=== PATIENT | female | born 1950 | race Hispanic/Latino ===

== ENCOUNTER 2017-02-09 21:24 | Emergency (ER) | payer BC, MEDICARE ==
[2017-02-09 21:36] VITALS: BMI 16.8
--- NOTE | 2017-02-09 22:03 | ED PDOC ---
Arrival/HPI - General Historian: Patient - General Chief Complaint: Altered Mental Status Time Seen by Provider: 02/09/17 21:34 - History of Present Illness Narrative History of Present Illness (Text): 02/09/17 21:53 Pt is a 66 year old female with past medical history of graves disease who presents with complaints of a fall three days prior to arrival. Pt reports three days ago she fell three times. Pt reports getting up in the middle of the night and fell while walking down hallway in house after bumping into wall. She reports the reason she bumped into the wall was due to issues with her peripheral vision. She reports a second fall after she attempted to get back up on her feet. The patient reports a third fall in the short period after. She indicates hitting her head at least 2 times during this episode. She credits her falls to feelings of dizziness on her feet and difficulty with peripheral vision. She denies chest pain, shortnees of breath, focal weakness, changes in vision, neck stiffness, nausea and vomiting. She denies suicidal or homicidal ideation, hallucinations or overdose. (Rahul Larios) Past Medical History - Provider Review Nursing Documentation Reviewed: Yes - Infectious Disease Hx of Infectious Diseases: None - Tetanus Immunization Tetanus Immunization: Unknown - Cardiac Hx Cardiac Disorders: Yes Hx Hypertension: Yes - Pulmonary Hx Respiratory Disorders: No - Neurological Hx Neurological Disorder: No - HEENT Hx HEENT Disorder: No - Renal Hx Renal Disorder: No - Endocrine/Metabolic Hx Endocrine Disorders: Yes Hx Hyperthyroidism: Yes (Graves) - Hematological/Oncological Hx Blood Disorders: No - Integumentary Hx Dermatological Disorder: No - Musculoskeletal/Rheumatological Hx Musculoskeletal Disorders: Yes Hx Falls: Yes - Gastrointestinal Hx Gastrointestinal Disorders: No - Genitourinary/Gynecological Hx Genitourinary Disorders: No - Psychiatric Hx Psychophysiologic Disorder: Yes Hx Anxiety: Yes Hx Depression: Yes Hx Substance Use: No - Surgical History Hx Section: Yes - Anesthesia Hx Anesthesia: Yes Hx Anesthesia Reactions: No Hx Malignant Hyperthermia: No - Suicidal Assessment Feels Threatened In Home Enviroment: No Family/Social History - Physician Review Nursing Documentation Reviewed: Yes Family/Social History: No Known Family HX Smoking Status: Never Smoked Hx Alcohol Use: No Hx Substance Use: No Hx Substance Use Treatment: No Allergies/Home Meds Allergies/Adverse Reactions: Allergies No Known Allergies Allergy (Verified 02/09/17 21:40) Home Medications: Home Meds Medication Instructions Recorded Confirmed Alprazolam [Xanax] 2 mg PO PRN PRN 12/26/12 02/09/17 Estrogen,Con/M-Progest Acet 1 tab PO DAILY 09/09/16 02/09/17 [Prempro 0.3 mg-1.5 mg Tablet] Multivit with Minerals/Lutein 1 tab PO DAILY 09/09/16 02/09/17 [[employer] Senior Multivit Tab] QUEtiapine [SEROquel] 25 mg PO HS 09/09/16 02/09/17 Review of Systems - Physician Review All systems were reviewed & negative as marked: Yes - Review of Systems Constitutional: absent: Fevers Eyes: absent: Vision Changes Cardiovascular: absent: Chest Pain Skin: Other (bruising on lower extremities ) Neurological: Headache. absent: Focal Weakness Psychiatric: absent: Suicidal Ideation, Other (hallucinations) Physical Exam - Systems Exam Head: Present: Atraumatic, Normocephalic Pupils: Present: PERRL Extroacular Muscles: Present: EOMI Conjunctiva: Present: Normal Mouth: Present: Moist Mucous Membranes Neck: Present: Normal Range of Motion, Paraspinal Tenderness (left side). No: MIDLINE TENDERNESS Respiratory/Chest: Present: Clear to Auscultation, Good Air Exchange. No: Respiratory Distress, Accessory Muscle Use Cardiovascular: Present: Regular Rate and Rhythm, Normal S1, S2. No: Murmurs Abdomen: Present: Normal Bowel Sounds. No: Tenderness, Distention, Peritoneal Signs Upper Extremity: Present: Normal Inspection. No: Cyanosis, Edema Lower Extremity: Present: NORMAL PULSES, Normal ROM, Erythema, Neurovascularly Intact, Capillary Refill < 2 s, Other (abrasions present bilaterally ). No: CALF TENDERNESS Neurological: Present: GCS=15, CN II-XII Intact, Speech Normal Skin: Present: Warm, Dry, Normal Color. No: Rashes Psychiatric: Present: Alert, Oriented x 3, Normal Insight, Normal Concentration. No: Suicidal Ideation, Homicidal Ideation, Delusional, Hallucinations, Intoxicated Medical Decision Making ED Course and Treatment: 02/09/17 22:13 Impression: - Pt is a 66 year old female with past medical history of graves disease, alcohol abuse, Tylenol overdose, and suicidal ideation who presents with history of multiple falls with head trauma three days prior to arrival. Differential Diagnosis included but are not limited to: - mechanical fall - head trauma - Cranial hematoma Plan: - CBC, CMP, EtOH serum, Cardiac enzymes, PT, PTT, Urinalysis, Drug screen - Head CT scan, Chest x-ray - Reassess and disposition Progress Notes: 02/09/17 22:14 - Patient denies chest x ray due to not wanting to spend money on unnecessary testing that insurance companies will not pay for. 02/09/17 22:42 - Discussed patient with Dr. Painter and he will accept the case for further observation and workup (Rahul Larios) In agreement with resident note, which includes further HPI details. Patient was seen and evaluated with resident, came up with plan and treatment together. (Chris Bro DO) - RAD Interpretation Radiology Orders: 02/09/17 CHEST PORTABLE [RAD] Stat 02/09/17 21:37 HEAD W/O CONTRAST [CT] Stat - PA / NEWSPAPER STUFFER / Resident Statement ABHISHEK has reviewed & agrees with the documentation as recorded. ABHISHEK has examined the patient and agrees with the treatment plan. Disposition/Present on Arrival - Present on Arrival Any Indicators Present on Arrival: No History of DVT/PE: No History of Uncontrolled Diabetes: No Urinary Catheter: No History of Decub. Ulcer: No History Surgical Site Infection Following: None - Disposition Have Diagnosis and Disposition been Completed?: Yes Disposition Time: 22:50 - Disposition Diagnosis: Head injury Condition: STABLE Forms: [employer] ([place])
== END 2017-02-09 22:54 | disposition left against medical advice (07) ==
LOC: ED 21:24
DX: S09.90XA Unspecified injury of head, initial encounter (principal); W18.30XA Fall on same level, unspecified, initial encounter; Y93.01 Activity, walking, marching and hiking; Y92.009 Unspecified place in unspecified non-institutional (private) residence as the place of occurrence of the external cause

== ENCOUNTER 2018-10-04 20:32 | Inpatient (IN) | payer MEDICARE, BC ==
[2018-10-04] MEDS ORDERED: Sodium Chloride 0.9% 1,000 ML IV STA ×2 (20:46)
[2018-10-04] MEDS ORDERED: Etomidate 20 mg/10ml Inj IV ONE (20:54)
--- NOTE | 2018-10-04 20:54 | ED PDOC ---
Arrival/HPI <Kassandra Verde - Last Filed: 10/04/18 22:01> - General Historian: EMS EM Caveat: Intoxicated - History of Present Illness Narrative History of Present Illness (Text): 10/04/18 20:46 67 F with unknown Past medical history presents with cc of Valium overdose via BLS. Per BLS, patient was found unresponsive w/ pill bottle next to her. Patient was dealing with strenuous emotional ventilation. It is unknown who called medics. Patient was verbal prior to arrival but is now unconscious at bedside. Her breaths sounds are spontaneous but she does not respond to deep sternal rub. HPI and ROS is limited due to patient's condition. Time/Duration: Prior to Arrival Symptom Onset: Sudden Symptom Course: Unchanged Activities at Onset: Light Context: Street <Gonzalo Atkins - Last Filed: 10/04/18 22:35> - General Time Seen by Provider: 10/04/18 20:43 Past Medical History - Provider Review Nursing Documentation Reviewed: Yes - Infectious Disease Hx of Infectious Diseases: None - Tetanus Immunization Tetanus Immunization: Unknown - Cardiac Hx Cardiac Disorders: Yes Hx Hypertension: Yes - Pulmonary Hx Respiratory Disorders: No - Neurological Hx Neurological Disorder: No - HEENT Hx HEENT Disorder: No - Renal Hx Renal Disorder: No - Endocrine/Metabolic Hx Endocrine Disorders: Yes Hx Hyperthyroidism: Yes (Graves) - Hematological/Oncological Hx Blood Disorders: No - Integumentary Hx Dermatological Disorder: No - Musculoskeletal/Rheumatological Hx Musculoskeletal Disorders: Yes Hx Falls: Yes - Gastrointestinal Hx Gastrointestinal Disorders: No - Genitourinary/Gynecological Hx Genitourinary Disorders: No - Psychiatric Hx Psychophysiologic Disorder: Yes Hx Anxiety: Yes Hx Depression: Yes Hx Substance Use: No - Surgical History Hx Section: Yes - Anesthesia Hx Anesthesia: Yes Hx Anesthesia Reactions: No Hx Malignant Hyperthermia: No - Suicidal Assessment Feels Threatened In Home Enviroment: No <Gonzalo Atkins - Last Filed: 10/04/18 22:35> Family/Social History - Physician Review Nursing Documentation Reviewed: Yes Family/Social History: Unknown Family HX Smoking Status: Never Smoked Hx Alcohol Use: No Hx Substance Use: No Hx Substance Use Treatment: No <Gonzalo Atkins - Last Filed: 10/04/18 22:35> Allergies/Home Meds <Kassandra Verde - Last Filed: 10/04/18 22:01> <Gonzalo Atkins - Last Filed: 10/04/18 22:35> Allergies/Adverse Reactions: Allergies No Known Allergies Allergy (Verified 02/09/17 21:40) Home Medications: Home Meds Medication Instructions Recorded Confirmed Alprazolam [Xanax] 2 mg PO PRN PRN 12/26/12 02/09/17 Estrogen,Con/M-Progest Acet 1 tab PO DAILY 09/09/16 02/09/17 [Prempro 0.3 mg-1.5 mg Tablet] Multivit with Minerals/Lutein 1 tab PO DAILY 09/09/16 02/09/17 [[employer] Senior Multivit Tab] QUEtiapine [SEROquel] 25 mg PO HS 09/09/16 02/09/17 Review of Systems - Physician Review All systems were reviewed & negative as marked: Yes - Review of Systems Systems not reviewed;Unavailable: Intoxicated <Gonzalo Atkins - Last Filed: 10/04/18 22:35> Physical Exam Vital Signs Temp Pulse Resp BP Pulse Ox 10/04/18 21:45 108 H 18 156/70 H 100 10/04/18 20:48 97.2 F L 114 H 20 113/82 100 <Kassandra Verde - Last Filed: 10/04/18 22:01> - Physical Exam Narrative Physical Exam (Text): 10/04/18 21:35 Gen: VS reviewed, obtunded, well developed, well nourished, nontoxic, mild distress Eye: pupils pinpoint and minimally responsive to light Neck: no JVD CV: regular rate, regular rhythm, no rubs,no murmur, S1, S2 Pulm: no distress, clear to auscultation, no wheeze, no rhonchi, breath sounds equal, no rales Abd: soft, nondistended Ext: no edema Skin: good color, no rash, no cyanosis Psych: unable to assess second to unresponsiveness Neuro: unable to assess second to unresponsiveness <Gonzalo Atkins - Last Filed: 10/04/18 22:35> Medical Decision Making - Lab Interpretations Lab Results: pCO2 41 mm/Hg (35-45) 10/04/18 21:50 pO2 223.0 mm/Hg (80-100) H 10/04/18 21:50 HCO3 20.6 mmol/L (21-28) L 10/04/18 21:50 ABG pH 7.31 (7.35-7.45) L 10/04/18 21:50 ABG Total CO2 21.9 mmol.L (22-28) L 10/04/18 21:50 ABG O2 Saturation 98.1 % (95-98) H 10/04/18 21:50 ABG O2 Content 18.3 ML/dl (15-23) 10/04/18 21:50 ABG Base Excess -5.4 mmol/L (-2.0-3.0) L 10/04/18 21:50 ABG Hemoglobin 13.0 g/dL (11.7-17.4) 10/04/18 21:50 ABG Carboxyhemoglobin 0.3 % (0.5-1.5) L 10/04/18 21:50 POC ABG HHb (Measured) 1.9 % (0-5) 10/04/18 21:50 ABG Methemoglobin 0.3 % (0.0-3.0) 10/04/18 21:50 ABG O2 Capacity 18.7 mL/dl (16-24) 10/04/18 21:50 Hgb O2 Saturation 97.4 % (95.0-98.0) 10/04/18 21:50 FiO2 50.0 % 10/04/18 21:50 Troponin I 0.08 ng/mL D 10/04/18 21:24 Total Bilirubin 0.3 mg/dL (0.2-1.3) 10/04/18 21:24 Total Protein 7.3 g/dL (5.8-8.3) 10/04/18 21:24 Albumin 4.3 g/dL (3.0-4.8) 10/04/18 21:24 Globulin 3.0 gm/dL 10/04/18 21:24 Albumin/Globulin Ratio 1.4 (1.1-1.8) 10/04/18 21:24 - RAD Interpretation Radiology Orders: 10/04/18 20:46 CHEST PORTABLE [RAD] Stat 10/04/18 20:47 HEAD W/O CONTRAST [CT] Stat - Medication Orders Current Medication Orders: Midazolam 100 mg/100ml in NS (Midazolam 100 Mg/100ml In Ns) 100 mg in 100 mls @ 1 mls/hr IV .Q24H PRN; Protocol PRN Reason: Agitation Clindamycin Phosphate (Cleocin 600mg/50ml D5w) 600 mg in 50 mls @ 50 mls/hr IVPB STAT STA; Protocol Stop: 10/04/18 22:53 Discontinued Medications Etomidate (Amidate) 20 mg IVP STAT STA Stop: 10/04/18 21:17 Last Admin: 10/04/18 20:54 Dose: 20 mg IVP Administration Document 10/04/18 20:54 AD (Rec: 10/04/18 21:49 AD [id number]) Charges for Administration # of IVP Administrations 1 Sodium Chloride (Sodium Chloride 0.9%) 1,000 mls @ 999 mls/hr IV .Q1H1M STA Stop: 10/04/18 21:46 Last Admin: 10/04/18 20:46 Dose: 999 mls/hr eMAR Start Stop Document 10/04/18 20:46 AD (Rec: 10/04/18 21:48 AD [id number]) Intravenous Solution Start Date 10/04/18 Start Time 20:46 Sodium Chloride (Sodium Chloride 0.9%) 1,000 mls @ 999 mls/hr IV .Q1H1M STA Stop: 10/04/18 21:46 Last Admin: 10/04/18 20:46 Dose: 999 mls/hr eMAR Start Stop Document 10/04/18 20:46 AD (Rec: 10/04/18 21:49 AD [id number]) Intravenous Solution Start Date 10/04/18 Start Time 20:46 Midazolam HCl (Versed Inj) 4 mg IVP ONCE ONE Stop: 10/04/18 21:52 Succinylcholine Chloride (Quelicin) 100 mg IV STAT STA Stop: 10/04/18 21:17 Last Admin: 10/04/18 20:55 Dose: 100 mg eMAR Start Stop Document 10/04/18 20:55 AD (Rec: 10/04/18 21:50 AD [id number]) Intravenous Solution Start Date 10/04/18 Start Time 20:55 <Kassandra Verde - Last Filed: 10/04/18 22:01> ED Course and Treatment: 10/04/18 22:[address] ricketts, case accepted to icu by dr. love. patient to be admitted for suspected valium drug overdose with reported empty pill bottle and suicide note associated with son's anniversary . patient was intubated upon arrival for airway protection in light of deeply obtunded state and report of vomiting. patient found to have high CPK which is consistent with rhabdo-IVF. with the high wbc count and the report of vomiting I opted to empirically tx with empiric abx. - Critical Care Critical Care Minutes: 60 minutes - RAD Interpretation Narrative RAD Interpretations (Text): 10/04/18 21:47 cxr my read: the seen ET tube is at the ezio however the ET tube was pulled back to 23 cm after the CXR as the respiratory therapist noticed that the tube was moved during CXR. no ptx, no focal infiltrate 10/04/18 22:12 1. There is generalized parenchymal atrophy noted as demonstrated by symmetrical dilatation of ventricles and sulci. 2. Chronic periventricular and subcortical microvascular disease is seen. 3. No acute intracranial pathology. Interpreted by Radiologist Control Technician: ED Physician - EKG Interpretation EKG Interpretation (Text): 10/04/18 21:43 2034: sinus tachycardia at 114 bpm, nml qrs, nml axis, inferior infarct, nonspecific t wav eabn Interpreted by ED Physician: Yes <Gonzalo Atkins - Last Filed: 10/04/18 22:35> Procedures - Time-Out Type of Procedure: Intubation Correct Patient (with visual ID + MR# on ID Band): Yes Correct Procedure: Yes Correct Site Marked: Yes Medication Reconciliation / Bloodwork / Allergies Checked: Yes Physician Name: Dr. Atkins PA/Tech: REGINA Verde - Intubation Time of Intubation: 20:55 Intubation Method: orotracheal Tube Size (cm): 7.5 (23cm at lipline) Medications: Succinylcholine (and Etomidate) Breath Sounds after Intubation: equal Intubation Complications: no complications Post Intubation Xray: Yes Progress/Xray Impression: Intubation directly supervised by ED attending Dr. Atkins <Kassandra Verde - Last Filed: 10/04/18 22:01> - PA / SAW BOSS / Resident Statement MD/DO has reviewed & agrees with the documentation as recorded. - Scribe Statement The provider has reviewed the documentation as recorded by the Tarun Nieves All medical record entries made by the Tarun were at my direction and personally dictated by me. I have reviewed the chart and agree that the record accurately reflects my personal performance of the history, physical exam, medical decision making, and the department course for this patient. I have also personally directed, reviewed, and agree with the discharge instructions and disposition. <Gonzalo Atkins - Last Filed: 10/04/18 22:35> Disposition/Present on Arrival <Kassandra Verde - Last Filed: 10/04/18 22:01> - Present on Arrival Any Indicators Present on Arrival: No History of DVT/PE: No History of Uncontrolled Diabetes: No Urinary Catheter: No History Surgical Site Infection Following: None - Disposition Have Diagnosis and Disposition been Completed?: Yes Disposition Time: 22:35 Patient Plan: Admission, ICU <Gonzalo Atkins - Last Filed: 10/04/18 22:35> - Disposition Diagnosis: Drug overdose, Suicide attempt, Respiratory failure, Rhabdomyolysis Disposition: HOSPITALIZED Condition: GUARDED Referrals: PCP,NO [Primary Care Provider] - Follow up with primary
[2018-10-04] MEDS ORDERED: Succinylcholine 200 mg/10 ml Inj IV ONE (20:55)
[2018-10-04] MEDS ORDERED: Etomidate 20 mg/10ml Inj IVP STA (21:16)
[2018-10-04] MEDS ORDERED: Succinylcholine 200 mg/10 ml Inj IV STA (21:16)
[2018-10-04 21:30] LABS: BASO # 0.01 K/mm3 (0.0-2.0); BASO % 0.1 % (0.0-3.0); HEMOGLOBIN 14.1 g/dL (12.0-16.0); LYMPH # 0.8 (1.2-3.4); LYMPH % 6.1 % (22.0-35.0); MEAN CELL VOLUME 100.2 fl (80.0-105.0); MEAN CORPUSCULAR HEMOGLOBIN 33.8 pg (25.0-35.0); MEAN CORPUSCULAR HGB CONC 33.7 g/dl (31.0-37.0); MEAN PLATELET VOLUME 9.1 fl (7.0-11.0); MONO # 0.5 (0.1-0.6); MONO % 3.5 % (1.0-6.0); PLATELET COUNT 178 10^3/uL (120.0-450.0); RBC 4.17 10^6/uL (3.5-6.1); RED CELL DISTRIBUTION WIDTH 12.1 % (11.5-14.5); WHITE BLOOD COUNT 12.9 10^3/uL (4.5-11.0)
[2018-10-04 21:38] LABS: ACETAMINOPHEN < 10.0 ug/ml (10.0-20.0); SALICYLATE < 1 mg/dL (2.0-20.0)
[2018-10-04 21:39] LABS: ALB/GLOB RATIO 1.4 (1.1-1.8); ALBUMIN 4.3 g/dL (3.0-4.8); CALCIUM 8.9 mg/dL (8.4-10.5)
[2018-10-04 21:51] LABS: TROPONIN I 0.08 ng/mL
[2018-10-04] MEDS ORDERED: Midazolam 100 mg/100ml in NS 100 MG/100 ML SOL IV PRN (21:51)
[2018-10-04] MEDS ORDERED: Midazolam 5 MG/ML IVP ONE (21:51)
[2018-10-04] MEDS ORDERED: Clindamycin 600mg/50ml D5W 600 MG/50 ML VIAL IVPB STA (21:54)
[2018-10-04 21:56] LABS: ARTERIAL BLOOD GAS HCO3 20.6 mmol/L (21-28); ARTERIAL BLOOD GAS O2 CAPACITY 18.7 mL/dl (16-24); ARTERIAL BLOOD GAS O2 CONTENT 18.3 ML/dl (15-23); ARTERIAL BLOOD GAS O2 SAT 98.1 % (95-98); ARTERIAL BLOOD GAS PCO2 41 mm/Hg (35-45); ARTERIAL BLOOD GAS PH 7.31 (7.35-7.45); ARTERIAL BLOOD GAS TCO2 21.9 mmol.L (22-28)
[2018-10-04 22:01] LABS: LYMPHOCYTE 6 % (22.0-35.0); MONOCYTE 6 % (1.0-6.0); NEUTROPHIL 88 % (50.0-70.0); PLATELET ESTIMATE NORMAL (NORMAL)
[2018-10-04 22:30] LABS: CK MB% 0.4 % (2.5-3.0)
[2018-10-04] MEDS ORDERED: Sodium Chloride 0.9% 1,000 ML IV SCH (22:30)
[2018-10-04 23:06] LABS: VENOUS BLOOD GAS BASE EXCESS -9.2 mmol/L (0.0-2.0); VENOUS BLOOD GAS PO2 51 mm/Hg (30-55); VENOUS BLOOD PH 7.17 (7.32-7.43)
--- NOTE | 2018-10-05 00:02 | CP.PCM.CON ---
<Brent Wilder - Last Filed: 10/05/18 00:41> History of Present Illness - History of Present Illness History of Present Illness: Brent Wilder DO, PGY-1 ICU Consult Note for Dr. Hewitt CC: valium OD, acute respiratory failure HPI: Patient is a 67 year old female with PMH of Grave's disease (with recent normal thyroid panel), BZD abuse, and prior OD presented to ED in acute respiratory failure. She was brought in by EMS who report they found patient on ground next to empty pill bottle. Per EMS, patient was somnolent initially and then decompensated upon arrival to ED. Patient was intubated and sedated in ED. History was obtained from patient's two daughters at bedside as patient is currently sedated and intubated. They state that patient was dealing with significant emotional distress at the time with her boyfriend. They believe it was her boyfriend who called EMS but are not entirely sure. She was down for an unknown length of time. 12-point ROS was unattainable due to patient's critical status. PMD: [place] Past Medical History: Grave's disease (with recent normal thyroid panel), BZD abuse, and prior OD Past Surgical History: none Allergies: NKA Home medications: Has taken unknown medicine for Grave's disease in the past, has a history of xanax abuse and had been getting valium Family History: reviewed, non-contributory Social History: patient's daughters deny she ever smoked cigarettes, they admit that she has a history of EtOH abuse, they deny patient ever used illicit drugs Review of Systems - Review of Systems Systems not reviewed;Unavailable: Acuity of Condition, Intubated Past Patient History - Infectious Disease Hx of Infectious Diseases: None - Tetanus Immunizations Tetanus Immunization: Unknown - Past Social History Smoking Status: Never Smoked - CARDIAC Hx Cardiac Disorders: Yes Hx Hypertension: Yes - PULMONARY Hx Respiratory Disorders: No - NEUROLOGICAL Hx Neurological Disorder: No - HEENT Hx HEENT Problems: No - RENAL Hx Chronic Kidney Disease: No - ENDOCRINE/METABOLIC Hx Endocrine Disorders: Yes Hx Hyperthyroidism: Yes (Graves) - HEMATOLOGICAL/ONCOLOGICAL Hx Blood Disorders: No - INTEGUMENTARY Hx Dermatological Problems: No - MUSCULOSKELETAL/RHEUMATOLOGICAL Hx Musculoskeletal Disorders: Yes Hx Falls: Yes - GASTROINTESTINAL Hx Gastrointestinal Disorders: No - GENITOURINARY/GYNECOLOGICAL Hx Genitourinary Disorders: No - PSYCHIATRIC Hx Psychophysiologic Disorder: Yes Hx Anxiety: Yes Hx Depression: Yes Hx Substance Use: No - SURGICAL HISTORY Hx Section: Yes - ANESTHESIA Hx Anesthesia: Yes Hx Anesthesia Reactions: No Hx Malignant Hyperthermia: No Meds Allergies/Adverse Reactions: Allergies Allergy/AdvReac Type Severity Reaction Status Date / Time No Known Allergies Allergy Verified 02/09/17 21:40 - Medications Medications: Current Medications Midazolam 100 mg/100ml in NS (Midazolam 100 Mg/100ml In Ns) 100 mg in 100 mls @ 1 mls/hr IV .Q24H PRN; Protocol PRN Reason: Agitation Last Admin: 10/04/18 22:06 Dose: 1 mls/hr Sodium Chloride (Sodium Chloride 0.9%) 1,000 mls @ 150 mls/hr IV .Q6H40M LI Clindamycin Phosphate (Cleocin 600mg/50ml D5w) 600 mg in 50 mls @ 50 mls/hr IVPB Q8H LI; Protocol Physical Exam - Constitutional Additional comments: intubated sedated, not overbreathing vent, is moving all limbs spontaneously - Head Exam Head Exam: ATRAUMATIC, NORMOCEPHALIC - Eye Exam Eye Exam: PERRL - ENT Exam ENT Exam: Mucous Membranes Moist - Neck Exam Neck exam: Negative for: Lymphadenopathy - Respiratory Exam Respiratory Exam: Clear to Auscultation Bilateral. absent: Rales, Rhonchi, Wheezes Additional comments: intubated on ventilator, breath sounds auscultated b/l - Cardiovascular Exam Cardiovascular Exam: REGULAR RHYTHM, RRR, +S1, +S2. absent: Diastolic murmur, Gallop, Rubs, Systolic Murmur - GI/Abdominal Exam GI & Abdominal Exam: Normal Bowel Sounds, Soft. absent: Guarding, Tenderness - Extremities Exam Extremities exam: Positive for: normal capillary refill, pedal pulses present. Negative for: pedal edema Additional comments: no visible hematomas or lacerations - Neurological Exam Additional comments: intubated, sedated - Skin Skin Exam: Dry, Warm Results - Vital Signs Recent Vital Signs: Last Vital Signs Temp 97.2 F L 10/04/18 20:48 Pulse 108 H 10/04/18 21:45 Resp 18 10/04/18 21:45 BP 156/70 H 10/04/18 21:45 Pulse Ox 100 10/04/18 21:45 - Labs Result Diagrams: 10/04/18 21:24 10/04/18 21:24 Labs: Laboratory Results - last 24 hr 10/04/18 10/04/18 10/04/18 21:24 21:24 21:24 WBC 12.9 H RBC 4.17 Hgb 14.1 Hct 41.8 MCV 100.2 MCH 33.8 MCHC 33.7 RDW 12.1 Plt Count 178 MPV 9.1 Neut % (Auto) 90.3 H Lymph % (Auto) 6.1 L [place] % (Auto) 3.5 Eos % (Auto) 0.0 L Baso % (Auto) 0.1 Lymph # (Auto) 0.8 L [place] # (Auto) 0.5 Eos # (Auto) 0.0 Baso # (Auto) 0.01 Absolute Neuts (auto) 11.64 H Neutrophils % (Manual) 88 H Lymphocytes % (Manual) 6 L Monocytes % (Manual) 6 Platelet Evaluation Normal pCO2 pO2 HCO3 ABG pH ABG Total CO2 ABG O2 Saturation ABG O2 Content ABG Base Excess ABG Hemoglobin ABG Carboxyhemoglobin POC ABG HHb (Measured) ABG Methemoglobin ABG O2 Capacity VBG pH VBG pCO2 VBG HCO3 VBG Total CO2 VBG O2 Sat (Calc) VBG Base Excess VBG Potassium Hgb O2 Saturation Glucose Lactate FiO2 Crit Value Called To Crit Value Called By Blood Gas Notified Time Sodium 137 Potassium 4.5 Chloride 101 Carbon Dioxide 19 L Anion Gap 22 H BUN 23 H Creatinine 1.6 H Est GFR ( Amer) 39 Est GFR (Non-Af Amer) 32 Random Glucose 154 H Calcium 8.9 Total Bilirubin 0.3 AST 84 H ALT 23 Alkaline Phosphatase 54 Total Creatine Kinase 6523 H CK-MB (CK-2) 29.0 H CK-MB (CK-2) % 0.4 L Troponin I 0.08 D Total Protein 7.3 Albumin 4.3 Globulin 3.0 Albumin/Globulin Ratio 1.4 Venous Blood Potassium Salicylates < 1 L Acetaminophen < 10.0 L Alcohol, Quantitative 10/04/18 10/04/18 10/04/18 21:24 21:50 22:42 WBC RBC Hgb Hct MCV MCH MCHC RDW Plt Count MPV Neut % (Auto) Lymph % (Auto) [place] % (Auto) Eos % (Auto) Baso % (Auto) Lymph # (Auto) [place] # (Auto) Eos # (Auto) Baso # (Auto) Absolute Neuts (auto) Neutrophils % (Manual) Lymphocytes % (Manual) Monocytes % (Manual) Platelet Evaluation pCO2 41 pO2 223.0 H 51 HCO3 20.6 L ABG pH 7.31 L ABG Total CO2 21.9 L ABG O2 Saturation 98.1 H ABG O2 Content 18.3 ABG Base Excess -5.4 L ABG Hemoglobin 13.0 ABG Carboxyhemoglobin 0.3 L POC ABG HHb (Measured) 1.9 ABG Methemoglobin 0.3 ABG O2 Capacity 18.7 VBG pH 7.17 L* VBG pCO2 54.0 VBG HCO3 19.7 L VBG Total CO2 21.4 L VBG O2 Sat (Calc) 83.5 H VBG Base Excess -9.2 L VBG Potassium 4.0 Hgb O2 Saturation 97.4 Glucose 130 H Lactate 5.7 H* FiO2 50.0 21.0 Crit Value Called To Omer[place] cruz Crit Value Called By Blood Gas Notified Time 2305 Sodium 140.0 Potassium Chloride 104.0 Carbon Dioxide Anion Gap BUN Creatinine Est GFR ( Amer) Est GFR (Non-Af Amer) Random Glucose Calcium Total Bilirubin AST ALT Alkaline Phosphatase Total Creatine Kinase CK-MB (CK-2) CK-MB (CK-2) % Troponin I Total Protein Albumin Globulin Albumin/Globulin Ratio Venous Blood Potassium 4.0 Salicylates Acetaminophen Alcohol, Quantitative 48 H Assessment & Plan - Assessment and Plan (Free Text) Assessment: 67 yo F with PMH of Grave's disease (with recent normal thyroid panel), BZD abuse, and prior BZD OD presents after being found by EMS with empty bottle of pills, likely Valium. She was initially responsive with EMS but then required ET intubation in ED. She is admitted to MICU for further management. Plan: Neuro: Intubated, sedated Monitor neuro status once extubated Cardio: Tachycardic but normotensive, no signs of HD compromise EKG: sinus tachycardia, normal QRS, non specific T wave changes, no QT prolongation Troponin: indeterminate at 0.08, will continue to trend Maintain MAP>65 Monitor for S/Sx of HD compromise Pulm: ABG: AGMA but negative salicylates, may be 2/2 rhabdo, continue to trend CXR: correct placement of ET tube verified Maintain SpO2 >90% Ventilator settings: PRVC at 300/15/5 with FiO2 of 50 Appropriate ventilator management as follows: Maintain head of bed > 30 degrees Maintain oral hygiene Daily ABG and CXR Daily sedation and weaning trials GI: NPO while intubated Case discussed with [facility]ison Control Recommended continuing IVF resuscitation and f/u labs with serum osmolality, Mg, Phos, continue to f/u with poison control /Nephro: BUN/Cr increased at 23/1.6 KRIS likely pre-renal azotemia from volume depletion and/or rhabdomyolysis Monitor UOP closely, hinton in place F/u serum osmolality results per poison control recs Replete electrolytes as needed Maintain euvolemia Endo: Random glucose: 154 Maintain euglycemia Heme/Onc: H/H stable at 14.1/41.8 Continue monitoring H/H and for sx of HD compromise ID: Afebrile, no leukocytosis Lactate noted to be elevated, may be 2/2 rhabdo, continue to trend F/u [place]camo cx, procal Monitor for sx of infection DVT/GI PPX: SC heparin/protonix Full Code NPO while intubated Monitor in MICU Patient seen, examined with, and plan discussed with my attending Dr. Marcelina Wilder, D.O. IM Resident PGY-1 Pager:[phone] <Cristóbal Hewitt - Last Filed: 10/05/18 01:45> Meds - Medications Medications: Current Medications Heparin Sodium (Porcine) (Heparin) 5,000 units SC Q8 LI; Protocol Midazolam 100 mg/100ml in NS (Midazolam 100 Mg/100ml In Ns) 100 mg in 100 mls @ 1 mls/hr IV .Q24H PRN; Protocol PRN Reason: Agitation Last Titration: 10/05/18 00:11 Dose: 3 mg/hr, 3 mls/hr Sodium Chloride (Sodium Chloride 0.9%) 1,000 mls @ 150 mls/hr IV .Q6H40M LI Last Admin: 10/05/18 00:10 Dose: 150 mls/hr Clindamycin Phosphate (Cleocin 600mg/50ml D5w) 600 mg in 50 mls @ 50 mls/hr IVPB Q8H LI; Protocol Pantoprazole Sodium (Protonix Inj) 40 mg IVP DAILY LI Results - Vital Signs Recent Vital Signs: Last Vital Signs Temp 97.2 F L 10/04/18 20:48 Pulse 126 H 10/05/18 00:45 Resp 20 10/05/18 00:45 BP 156/70 H 10/04/18 21:45 Pulse Ox 100 10/04/18 21:45 - Labs Result Diagrams: 10/04/18 21:24 10/04/18 21:24 Labs: Laboratory Results - last 24 hr 10/04/18 10/04/18 10/04/18 21:24 21:24 21:24 WBC 12.9 H RBC 4.17 Hgb 14.1 Hct 41.8 MCV 100.2 MCH 33.8 MCHC 33.7 RDW 12.1 Plt Count 178 MPV 9.1 Neut % (Auto) 90.3 H Lymph % (Auto) 6.1 L [place] % (Auto) 3.5 Eos % (Auto) 0.0 L Baso % (Auto) 0.1 Lymph # (Auto) 0.8 L [place] # (Auto) 0.5 Eos # (Auto) 0.0 Baso # (Auto) 0.01 Absolute Neuts (auto) 11.64 H Neutrophils % (Manual) 88 H Lymphocytes % (Manual) 6 L Monocytes % (Manual) 6 Platelet Evaluation Normal pCO2 pO2 HCO3 ABG pH ABG Total CO2 ABG O2 Saturation ABG O2 Content ABG Base Excess ABG Hemoglobin ABG Carboxyhemoglobin POC ABG HHb (Measured) ABG Methemoglobin ABG O2 Capacity VBG pH VBG pCO2 VBG HCO3 VBG Total CO2 VBG O2 Sat (Calc) VBG Base Excess VBG Potassium Hgb O2 Saturation Glucose Lactate FiO2 Crit Value Called To Crit Value Called By Blood Gas Notified Time Sodium 137 Potassium 4.5 Chloride 101 Carbon Dioxide 19 L Anion Gap 22 H BUN 23 H Creatinine 1.6 H Est GFR ( Amer) 39 Est GFR (Non-Af Amer) 32 Random Glucose 154 H Serum Osmolality Calcium 8.9 Phosphorus Magnesium Total Bilirubin 0.3 AST 84 H ALT 23 Alkaline Phosphatase 54 Total Creatine Kinase 6523 H CK-MB (CK-2) 29.0 H CK-MB (CK-2) % 0.4 L Troponin I 0.08 D Total Protein 7.3 Albumin 4.3 Globulin 3.0 Albumin/Globulin Ratio 1.4 Venous Blood Potassium Urine Color Urine Appearance Urine pH Ur Specific [place] Urine Protein Urine Glucose (UA) Urine Ketones Urine Blood Urine Nitrate Urine Bilirubin Urine Urobilinogen Ur Leukocyte Esterase Urine RBC Urine WBC Ur Epithelial Cells Urine Bacteria Salicylates < 1 L Urine Opiates Screen Urine Methadone Screen Acetaminophen < 10.0 L Ur Barbiturates Screen Ur Phencyclidine Scrn Ur Amphetamines Screen U Benzodiazepines Scrn U Oth Cocaine Metabols U Cannabinoids Screen Alcohol, Quantitative 10/04/18 10/04/18 10/04/18 21:24 21:24 21:24 WBC RBC Hgb Hct MCV MCH MCHC RDW Plt Count MPV Neut % (Auto) Lymph % (Auto) [place] % (Auto) Eos % (Auto) Baso % (Auto) Lymph # (Auto) [place] # (Auto) Eos # (Auto) Baso # (Auto) Absolute Neuts (auto) Neutrophils % (Manual) Lymphocytes % (Manual) Monocytes % (Manual) Platelet Evaluation pCO2 pO2 HCO3 ABG pH ABG Total CO2 ABG O2 Saturation ABG O2 Content ABG Base Excess ABG Hemoglobin ABG Carboxyhemoglobin POC ABG HHb (Measured) ABG Methemoglobin ABG O2 Capacity VBG pH VBG pCO2 VBG HCO3 VBG Total CO2 VBG O2 Sat (Calc) VBG Base Excess VBG Potassium Hgb O2 Saturation Glucose Lactate FiO2 Crit Value Called To Crit Value Called By Blood Gas Notified Time Sodium Potassium Chloride Carbon Dioxide Anion Gap BUN Creatinine Est GFR ( Amer) Est GFR (Non-Af Amer) Random Glucose Serum Osmolality 310 H Calcium Phosphorus 5.3 H Magnesium 2.2 Total Bilirubin AST ALT Alkaline Phosphatase Total Creatine Kinase CK-MB (CK-2) CK-MB (CK-2) % Troponin I Total Protein Albumin Globulin Albumin/Globulin Ratio Venous Blood Potassium Urine Color Urine Appearance Urine pH Ur Specific [place] Urine Protein Urine Glucose (UA) Urine Ketones Urine Blood Urine Nitrate Urine Bilirubin Urine Urobilinogen Ur Leukocyte Esterase Urine RBC Urine WBC Ur Epithelial Cells Urine Bacteria Salicylates Urine Opiates Screen Urine Methadone Screen Acetaminophen Ur Barbiturates Screen Ur Phencyclidine Scrn Ur Amphetamines Screen U Benzodiazepines Scrn U Oth Cocaine Metabols U Cannabinoids Screen Alcohol, Quantitative 48 H 10/04/18 10/04/18 10/05/18 21:50 22:42 00:30 WBC RBC Hgb Hct MCV MCH MCHC RDW Plt Count MPV Neut % (Auto) Lymph % (Auto) [place] % (Auto) Eos % (Auto) Baso % (Auto) Lymph # (Auto) [place] # (Auto) Eos # (Auto) Baso # (Auto) Absolute Neuts (auto) Neutrophils % (Manual) Lymphocytes % (Manual) Monocytes % (Manual) Platelet Evaluation pCO2 41 pO2 223.0 H 51 HCO3 20.6 L ABG pH 7.31 L ABG Total CO2 21.9 L ABG O2 Saturation 98.1 H ABG O2 Content 18.3 ABG Base Excess -5.4 L ABG Hemoglobin 13.0 ABG Carboxyhemoglobin 0.3 L POC ABG HHb (Measured) 1.9 ABG Methemoglobin 0.3 ABG O2 Capacity 18.7 VBG pH 7.17 L* VBG pCO2 54.0 VBG HCO3 19.7 L VBG Total CO2 21.4 L VBG O2 Sat (Calc) 83.5 H VBG Base Excess -9.2 L VBG Potassium 4.0 Hgb O2 Saturation 97.4 Glucose 130 H Lactate 5.7 H* FiO2 50.0 21.0 Crit Value Called To Omero cruz Crit Value Called By Blood Gas Notified Time 2305 Sodium 140.0 Potassium Chloride 104.0 Carbon Dioxide Anion Gap BUN Creatinine Est GFR ( Amer) Est GFR (Non-Af Amer) Random Glucose Serum Osmolality Calcium Phosphorus Magnesium Total Bilirubin AST ALT Alkaline Phosphatase Total Creatine Kinase CK-MB (CK-2) CK-MB (CK-2) % Troponin I Total Protein Albumin Globulin Albumin/Globulin Ratio Venous Blood Potassium 4.0 Urine Color [place] Urine Appearance Sl cloudy Urine pH 6.5 Ur Specific [place] 1.020 Urine Protein 100 H Urine Glucose (UA) Negative Urine Ketones Negative Urine Blood Large H Urine Nitrate Negative Urine Bilirubin Negative Urine Urobilinogen 0.2 Ur Leukocyte Esterase Negative Urine RBC 1 - 3 H Urine WBC 0 - 2 Ur Epithelial Cells 3 - 4 Urine Bacteria Occ Salicylates Urine Opiates Screen Urine Methadone Screen Acetaminophen Ur Barbiturates Screen Ur Phencyclidine Scrn Ur Amphetamines Screen U Benzodiazepines Scrn U Oth Cocaine Metabols U Cannabinoids Screen Alcohol, Quantitative 10/05/18 00:30 WBC RBC Hgb Hct MCV MCH MCHC RDW Plt Count MPV Neut % (Auto) Lymph % (Auto) [place] % (Auto) Eos % (Auto) Baso % (Auto) Lymph # (Auto) [place] # (Auto) Eos # (Auto) Baso # (Auto) Absolute Neuts (auto) Neutrophils % (Manual) Lymphocytes % (Manual) Monocytes % (Manual) Platelet Evaluation pCO2 pO2 HCO3 ABG pH ABG Total CO2 ABG O2 Saturation ABG O2 Content ABG Base Excess ABG Hemoglobin ABG Carboxyhemoglobin POC ABG HHb (Measured) ABG Methemoglobin ABG O2 Capacity VBG pH VBG pCO2 VBG HCO3 VBG Total CO2 VBG O2 Sat (Calc) VBG Base Excess VBG Potassium Hgb O2 Saturation Glucose Lactate FiO2 Crit Value Called To Crit Value Called By Blood Gas Notified Time Sodium Potassium Chloride Carbon Dioxide Anion Gap BUN Creatinine Est GFR ( Amer) Est GFR (Non-Af Amer) Random Glucose Serum Osmolality Calcium Phosphorus Magnesium Total Bilirubin AST ALT Alkaline Phosphatase Total Creatine Kinase CK-MB (CK-2) CK-MB (CK-2) % Troponin I Total Protein Albumin Globulin Albumin/Globulin Ratio Venous Blood Potassium Urine Color Urine Appearance Urine pH Ur Specific [place] Urine Protein Urine Glucose (UA) Urine Ketones Urine Blood Urine Nitrate Urine Bilirubin Urine Urobilinogen Ur Leukocyte Esterase Urine RBC Urine WBC Ur Epithelial Cells Urine Bacteria Salicylates Urine Opiates Screen Negative Urine Methadone Screen Negative Acetaminophen Ur Barbiturates Screen Negative Ur Phencyclidine Scrn Negative Ur Amphetamines Screen Negative U Benzodiazepines Scrn Positive H U Oth Cocaine Metabols Negative U Cannabinoids Screen Negative Alcohol, Quantitative Attending/Attestation - Attestation I have personally seen and examined this patient.: Yes I have fully participated in the care of the patient.: Yes I have reviewed all pertinent clinical information: Yes Notes (Text): 10/05/18 01:43 Seen and examined. Discussed with resident. intubated to protect airways. Suicide attempt with Valium OD with previous H/O suicide. A&P as above.
[2018-10-05] MEDS: Sodium Chloride 0.9% 1,000 ML IV SCH ×4 (00:10→21:47)
[2018-10-05 00:46] LABS: PH,URINE 6.5 (4.7-8.0); URINE BILIRUBIN NEGATIVE (NEGATIVE); URINE BLOOD LARGE (NEGATIVE); URINE GLUCOSE (UA) NEGATIVE (NEGATIVE); URINE LEUKOCYTE ESTERASE NEGATIVE Leu/uL (NEGATIVE); URINE PROTEIN 100 mg/dL (<30 mg/dL); URINE UROBILINOGEN 0.2 E.U./dL (<1 E.U./dL)
[2018-10-05 00:48] LABS: URINE APPEARANCE SL CLOUDY (CLEAR); URINE COLOR PINK (YELLOW)
[2018-10-05 01:00] LABS: URINE BACTERIA OCC /hpf; URINE WBC 0 - 2 /hpf (0-6)
[2018-10-05 01:01] LABS: OPIATES, UR NEGATIVE (NEGATIVE)
[2018-10-05 01:11] LABS: BARBITURATES, UR NEGATIVE (NEGATIVE); BENZODIAZEPINES, UR POSITIVE (NEGATIVE); PHENCYCLIDINE, UR NEGATIVE (NEGATIVE)
[2018-10-05 01:19] VITALS: BMI 22.6
[2018-10-05 02:16] LABS: VENOUS BLOOD GAS BASE EXCESS -6.9 mmol/L (0.0-2.0); VENOUS BLOOD GAS PO2 41 mm/Hg (30-55); VENOUS BLOOD PH 7.16 (7.32-7.43)
--- NOTE | 2018-10-05 02:19 | PCM.SEPTIC ---
<Brent Wilder - Last Filed: 10/05/18 02:18> Sepsis Progress Note - Reassessment Type Date of Evaluation: 10/05/18 Time of Evaluation: 02:18 Reassessment Type: Non-invasive reassessment - Non Invasive Reassessment Were the most recent vital sign reviewed: Yes Vital Sign (Latest): Temp Pulse Resp BP Pulse Ox 98.6 F 126 H 20 133/47 L 100 10/05/18 00:45 10/05/18 00:45 10/05/18 00:45 10/05/18 00:45 10/05/18 00:45 Cardiovascular: Yes: Tachycardia. No: Gallop, Murmur Respiratory: Yes: Normal Breath Sounds. No: Rales, Rhonchi Capillary Refill: Normal (Less than 2 sec) Pulses: Normal Radial, Normal Dorsalis Pedis, Normal Posterior Tibialis Skin: Normal Color, Warm, Dry <Cristóbal Hewitt - Last Filed: 10/05/18 19:32> Sepsis Progress Note - Non Invasive Reassessment Vital Sign (Latest): Temp Pulse Resp BP Pulse Ox 100.6 F H 116 H 23 119/45 L 100 10/05/18 11:50 10/05/18 16:00 10/05/18 14:20 10/05/18 14:02 10/05/18 14:20 Attending/Attestation - Attestation I have personally seen and examined this patient.: Yes I have fully participated in the care of the patient.: Yes I have reviewed all pertinent clinical information, including history, physical exam and plan: Yes
[2018-10-05 05:25] LABS: ARTERIAL BLOOD GAS HCO3 18.2 mmol/L (21-28); ARTERIAL BLOOD GAS O2 SAT 98.5 % (95-98); ARTERIAL BLOOD GAS PCO2 37 mm/Hg (35-45); ARTERIAL BLOOD GAS TCO2 19.3 mmol.L (22-28)
[2018-10-05] MEDS ORDERED: Clindamycin 600mg/50ml D5W 600 MG/50 ML VIAL IVPB SCH (07:00)
[2018-10-05] MEDS ORDERED: Midazolam 100 mg/100ml in NS 100 MG/100 ML SOL IV PRN (07:16)
[2018-10-05 07:37] LABS: ALB/GLOB RATIO 1.1 (1.1-1.8); ALBUMIN 3.5 g/dL (3.0-4.8); CALCIUM 8.2 mg/dL (8.4-10.5); TROPONIN I 0.83 ng/mL
[2018-10-05 08:15] LABS: BASO # 0.01 K/mm3 (0.0-2.0); BASO % 0.1 % (0.0-3.0); LYMPH # 1.1 (1.2-3.4); LYMPH % 7.3 % (22.0-35.0); MEAN CELL VOLUME 101.6 fl (80.0-105.0); MEAN CORPUSCULAR HEMOGLOBIN 33.7 pg (25.0-35.0); MEAN CORPUSCULAR HGB CONC 33.1 g/dl (31.0-37.0); MEAN PLATELET VOLUME 9.3 fl (7.0-11.0); MONO # 2.2 (0.1-0.6); MONO % 14.8 % (1.0-6.0); RBC 4.93 10^6/uL (3.5-6.1); RED CELL DISTRIBUTION WIDTH 12.2 % (11.5-14.5); WHITE BLOOD COUNT 15.2 10^3/uL (4.5-11.0)
[2018-10-05 08:20] LABS: HEMOGLOBIN 16.6 g/dL (12.0-16.0)
--- NOTE | 2018-10-05 09:02 | CT ---
Date of service: 10/04/2018 PROCEDURE: CT HEAD WITHOUT CONTRAST. HISTORY: altered mental status COMPARISON: None available. TECHNIQUE: Axial computed tomography images were obtained through the head/brain without intravenous contrast. Radiation dose: Total exam DLP = 916.7 mGy-cm. This CT exam was performed using one or more of the following dose reduction techniques: Automated exposure control, adjustment of the mA and/or kV according to patient size, and/or use of iterative reconstruction technique. FINDINGS: HEMORRHAGE: No intracranial hemorrhage. BRAIN: No mass effect or edema. No atrophy or chronic microvascular ischemic changes. VENTRICLES: Unremarkable. No hydrocephalus. CALVARIUM: Unremarkable. PARANASAL SINUSES: Unremarkable as visualized. No significant inflammatory changes. MASTOID AIR CELLS: Unremarkable as visualized. No inflammatory changes. OTHER FINDINGS: None. IMPRESSION: Normal CT of the Head.
--- NOTE | 2018-10-05 09:39 | RAD ---
Date of service: 10/04/2018 HISTORY: aspiration COMPARISON: No prior. FINDINGS: LUNGS: No active pulmonary disease. PLEURA: No significant pleural effusion identified, no pneumothorax apparent. CARDIOVASCULAR: No aortic atherosclerotic calcification present. Normal cardiac size. No pulmonary vascular congestion. OSSEOUS STRUCTURES: No significant abnormalities. VISUALIZED UPPER ABDOMEN: Normal. OTHER FINDINGS: None. IMPRESSION: The endotracheal tube is at the level of the ezio and could be withdrawn 15-20 mm.
[2018-10-05] MEDS ORDERED: WATER IV ONE ×2 (09:55→10:55)
[2018-10-05] MEDS ORDERED: ACETYLCYSTEINE IV ONE ×2 (09:55→10:55)
[2018-10-05] MEDS ORDERED: DEXTROSE 5% IV ONE ×2 (09:55→10:55)
--- NOTE | 2018-10-05 09:55 | RAD ---
Date of service: 10/05/2018 HISTORY: intubated COMPARISON: 10/04/2018 FINDINGS: LUNGS: No active pulmonary disease. PLEURA: No significant pleural effusion identified, no pneumothorax apparent. CARDIOVASCULAR: Minimal aortic calcification and tortuosity Normal cardiac size. No pulmonary vascular congestion. OSSEOUS STRUCTURES: No significant abnormalities. VISUALIZED UPPER ABDOMEN: Normal. OTHER FINDINGS: Endotracheal tube just above the ezio IMPRESSION: No active disease.
--- NOTE | 2018-10-05 10:26 | CP.CCUPN ---
<Yakov Herman - Last Filed: 10/05/18 10:51> CCU Subjective - Physician Review Events Since Last Encounter (Free Text): 10/05/18 10:22 versed has been discontinued, pt extubated Subjective (Free Text): 10/05/18 10:24 Pt seen and examined this morning in ICU. Pt extubated, able to move all 4 extremities CCU Objective - Vital Signs / Intake & Output Vital Signs (Last 4 hours): Vital Signs Temp Pulse BP Pulse Ox 10/05/18 08:30 100.6 F H 126 H 99 10/05/18 08:27 100.6 F H 127 H 119/89 99 10/05/18 08:20 100.4 F H 129 H 98 10/05/18 08:10 100.6 F H 126 H 98 10/05/18 08:00 99.9 F H 132 H 100 10/05/18 07:50 100.4 F H 131 H 99 10/05/18 07:40 100.4 F H 130 H 98 10/05/18 07:30 100.4 F H 128 H 99 10/05/18 07:20 100.2 F H 123 H 99 10/05/18 07:10 100.4 F H 124 H 99 10/05/18 07:00 99.9 F H 126 H 134/67 99 10/05/18 06:50 100.2 F H 133 H 99 10/05/18 06:40 100.2 F H 125 H 99 10/05/18 06:30 100.2 F H 123 H 99 Intake and Output (Last 8hrs): Intake & Output 10/04/18 10/05/18 10/05/18 22:59 06:59 14:59 Intake Total 2958 Output Total 300 Balance 2658 Weight 130 lb 127 lb 14.4 oz Intake: IV 2958 Right Wrist 2950 Output: Urine 300 Urine, Voided 300 Other: Voiding Method Incontinent - Physical Exam Physical Exam Limitations: Positive for: Altered Mental Status Head: Positive for: Atraumatic, Normocephalic Pupils: Positive for: PERRL Extroacular Muscles: Positive for: EOMI Mouth: Positive for: Moist Mucous Membranes Respiratory/Chest: Positive for: Clear to Auscultation, Good Air Exchange, Accessory Muscle Use. Negative for: Respiratory Distress, Wheezes Cardiovascular: Positive for: Normal S1, S2, Peripheal Pulses Present, Tachycardic Abdomen: Positive for: Normal Bowel Sounds. Negative for: Tenderness, Distention Skin: Positive for: Warm, Dry, Normal Color - Medications Active Medications: Active Medications Generic Name Dose Route Start Last Admin Trade Name Freq PRN Reason Stop Dose Admin Heparin Sodium (Porcine) 5,000 units 10/05/18 06:00 10/05/18 06:19 Heparin SC 5,000 units Q8 LI Administration Protocol Sodium Chloride 1,000 mls @ 150 mls/hr 10/04/18 23:45 10/05/18 00:10 Sodium Chloride 0.9% IV 150 mls/hr .[id number] LI Administration Acetylcysteine 8,640 mg/ 243.2 mls @ 200 mls/hr 10/05/18 09:55 Dextrose IV 10/05/18 11:07 .[id number] ONE Acetylcysteine 5,772 mg/ 1,028.86 mls @ 62.5 mls/hr 10/05/18 09:55 Dextrose IV 10/06/18 02:22 .[id number] ONE Acetylcysteine 2,886 mg/ 514.43 mls @ 125 mls/hr 10/05/18 10:55 Dextrose IV 10/05/18 15:01 .[id number] ONE Pantoprazole Sodium 40 mg 10/05/18 10:00 Protonix Inj IVP DAILY LI - Patient Studies Lab Studies: Lab Studies 10/05/18 10/05/18 10/05/18 Range/Units 06:30 06:30 06:30 WBC 15.2 H (4.5-11.0) 10^3/uL RBC 4.93 (3.5-6.1) 10^6/uL Hgb 16.6 H D (12.0-16.0) g/dL Hct 50.1 H (36.0-48.0) % MCV 101.6 (80.0-105.0) fl MCH 33.7 (25.0-35.0) pg MCHC 33.1 (31.0-37.0) g/dl RDW 12.2 (11.5-14.5) % Plt Count 186 (120.0-450.0) 10^3/uL MPV 9.3 (7.0-11.0) fl Neut % (Auto) 77.8 H (50.0-68.0) % Lymph % (Auto) 7.3 L (22.0-35.0) % [place] % (Auto) 14.8 H (1.0-6.0) % Eos % (Auto) 0.0 L (1.5-5.0) % Baso % (Auto) 0.1 (0.0-3.0) % Lymph # (Auto) 1.1 L (1.2-3.4) [place] # (Auto) 2.2 H (0.1-0.6) Eos # (Auto) 0.0 (0.0-0.7) Baso # (Auto) 0.01 (0.0-2.0) K/mm3 Absolute Neuts (auto) 11.81 H (1.4-6.5) Neutrophils % (Manual) (50.0-70.0) % Lymphocytes % (Manual) (22.0-35.0) % Monocytes % (Manual) (1.0-6.0) % Platelet Evaluation (NORMAL) pCO2 (35-45) mm/Hg pO2 (80-100) mm/Hg HCO3 (21-28) mmol/L ABG pH (7.35-7.45) ABG Total CO2 (22-28) mmol.L ABG O2 Saturation (95-98) % ABG O2 Content (15-23) ML/dl ABG Base Excess (-2.0-3.0) mmol/L ABG Hemoglobin (11.7-17.4) g/dL ABG Carboxyhemoglobin (0.5-1.5) % POC ABG HHb (Measured) (0-5) % ABG Methemoglobin (0.0-3.0) % ABG O2 Capacity (16-24) mL/dl ABG Potassium (3.6-5.2) mmol/L VBG pH (7.32-7.43) VBG pCO2 (40-60) VBG HCO3 (21-28) mmol/l VBG Total CO2 (22-28) mmol.L VBG O2 Sat (Calc) (40-65) % VBG Base Excess (0.0-2.0) mmol/L VBG Potassium (3.6-5.2) mmol/L Hgb O2 Saturation (95.0-98.0) % Glucose (65-105) mg/dl Lactate (0.7-2.1) mmol/L FiO2 % Crit Value Called To Crit Value Called By Blood Gas Notified Time Sodium 142 (132-148) mmol/L Potassium 4.9 (3.6-5.0) mmol/L Chloride 110 H (98-107) mmol/L Carbon Dioxide 20 L (21-33) mmol/L Anion Gap 16 (10-20) BUN 28 H (7-21) mg/dL Creatinine 1.2 (0.7-1.2) mg/dl Est GFR ( Amer) 54 Est GFR (Non-Af Amer) 45 Random Glucose 124 H (70-110) mg/dL Serum Osmolality (272-300) mosm/kg Calcium 8.2 L (8.4-10.5) mg/dL Phosphorus 4.4 (2.5-4.5) mg/dL Magnesium 2.0 (1.7-2.2) mg/dL Total Bilirubin 0.4 (0.2-1.3) mg/dL AST 516 H D (14-36) U/L ALT 101 H (7-56) U/L Alkaline Phosphatase 63 (38-126) U/L Total Creatine Kinase (35-230) U/L CK-MB (CK-2) (0.0-3.6) ng/mL CK-MB (CK-2) % (2.5-3.0) % Troponin I 0.83 H* D ng/mL Total Protein 6.8 (5.8-8.3) g/dL Albumin 3.5 (3.0-4.8) g/dL Globulin 3.3 gm/dL Albumin/Globulin Ratio 1.1 (1.1-1.8) TSH 3rd Generation 0.43 L (0.46-4.68) mIU/mL Arterial Blood Potassium (3.6-5.2) mmol/L Venous Blood Potassium (3.6-5.2) mmol/L Urine Color (YELLOW) Urine Appearance (CLEAR) Urine pH (4.7-8.0) Ur Specific [place] (1.005-1.035) Urine Protein (<30 mg/dL) mg/dL Urine Glucose (UA) (NEGATIVE) mg/dL Urine Ketones (NEGATIVE) mg/dL Urine Blood (NEGATIVE) Urine Nitrate (NEGATIVE) Urine Bilirubin (NEGATIVE) Urine Urobilinogen (<1 E.U./dL) E.U./dL Ur Leukocyte Esterase (NEGATIVE) Nicole/uL Urine RBC (0-2) /hpf Urine WBC (0-6) /hpf Ur Epithelial Cells (0-5) /hpf Urine Bacteria (NONE) /hpf Salicylates (2.0-20.0) mg/dL Urine Opiates Screen (NEGATIVE) Urine Methadone Screen (NEGATIVE) Acetaminophen (10.0-20.0) ug/ml Ur Barbiturates Screen (NEGATIVE) Ur Phencyclidine Scrn (NEGATIVE) Ur Amphetamines Screen (NEGATIVE) U Benzodiazepines Scrn (NEGATIVE) U Oth Cocaine Metabols (NEGATIVE) U Cannabinoids Screen (NEGATIVE) Alcohol, Quantitative (0-10) mg/dL 10/05/18 10/05/18 10/05/18 Range/Units 04:55 01:50 00:30 WBC (4.5-11.0) 10^3/uL RBC (3.5-6.1) 10^6/uL Hgb (12.0-16.0) g/dL Hct (36.0-48.0) % MCV (80.0-105.0) fl MCH (25.0-35.0) pg MCHC (31.0-37.0) g/dl RDW (11.5-14.5) % Plt Count (120.0-450.0) 10^3/uL MPV (7.0-11.0) fl Neut % (Auto) (50.0-68.0) % Lymph % (Auto) (22.0-35.0) % [place] % (Auto) (1.0-6.0) % Eos % (Auto) (1.5-5.0) % Baso % (Auto) (0.0-3.0) % Lymph # (Auto) (1.2-3.4) [place] # (Auto) (0.1-0.6) Eos # (Auto) (0.0-0.7) Baso # (Auto) (0.0-2.0) K/mm3 Absolute Neuts (auto) (1.4-6.5) Neutrophils % (Manual) (50.0-70.0) % Lymphocytes % (Manual) (22.0-35.0) % Monocytes % (Manual) (1.0-6.0) % Platelet Evaluation (NORMAL) pCO2 37 (35-45) mm/Hg pO2 196.0 H 41 (80-100) mm/Hg HCO3 18.2 L (21-28) mmol/L ABG pH 7.30 L (7.35-7.45) ABG Total CO2 19.3 L (22-28) mmol.L ABG O2 Saturation 98.5 H (95-98) % ABG O2 Content (15-23) ML/dl ABG Base Excess -7.5 L (-2.0-3.0) mmol/L ABG Hemoglobin (11.7-17.4) g/dL ABG Carboxyhemoglobin (0.5-1.5) % POC ABG HHb (Measured) (0-5) % ABG Methemoglobin (0.0-3.0) % ABG O2 Capacity (16-24) mL/dl ABG Potassium 4.0 (3.6-5.2) mmol/L VBG pH 7.16 L* (7.32-7.43) VBG pCO2 64.0 H (40-60) VBG HCO3 22.8 (21-28) mmol/l VBG Total CO2 24.8 (22-28) mmol.L VBG O2 Sat (Calc) 73.1 H (40-65) % VBG Base Excess -6.9 L (0.0-2.0) mmol/L VBG Potassium 3.9 (3.6-5.2) mmol/L Hgb O2 Saturation (95.0-98.0) % Glucose 127 H 138 H (65-105) mg/dl Lactate 1.8 5.6 H* (0.7-2.1) mmol/L FiO2 40.0 21.0 % Crit Value Called To Meli saenz rn ccu Crit Value Called By [facility] Blood Gas Notified Time 216 Sodium 138.0 140.0 (132-148) mmol/L Potassium (3.6-5.0) mmol/L Chloride 109.0 H 105.0 (98-107) mmol/L Carbon Dioxide (21-33) mmol/L Anion Gap (10-20) BUN (7-21) mg/dL Creatinine (0.7-1.2) mg/dl Est GFR ( Amer) Est GFR (Non-Af Amer) Random Glucose (70-110) mg/dL Serum Osmolality (272-300) mosm/kg Calcium (8.4-10.5) mg/dL Phosphorus (2.5-4.5) mg/dL Magnesium (1.7-2.2) mg/dL Total Bilirubin (0.2-1.3) mg/dL AST (14-36) U/L ALT (7-56) U/L Alkaline Phosphatase (38-126) U/L Total Creatine Kinase (35-230) U/L CK-MB (CK-2) (0.0-3.6) ng/mL CK-MB (CK-2) % (2.5-3.0) % Troponin I ng/mL Total Protein (5.8-8.3) g/dL Albumin (3.0-4.8) g/dL Globulin gm/dL Albumin/Globulin Ratio (1.1-1.8) TSH 3rd Generation (0.46-4.68) mIU/mL Arterial Blood Potassium 4.0 (3.6-5.2) mmol/L Venous Blood Potassium 3.9 (3.6-5.2) mmol/L Urine Color (YELLOW) Urine Appearance (CLEAR) Urine pH (4.7-8.0) Ur Specific [place] (1.005-1.035) Urine Protein (<30 mg/dL) mg/dL Urine Glucose (UA) (NEGATIVE) mg/dL Urine Ketones (NEGATIVE) mg/dL Urine Blood (NEGATIVE) Urine Nitrate (NEGATIVE) Urine Bilirubin (NEGATIVE) Urine Urobilinogen (<1 E.U./dL) E.U./dL Ur Leukocyte Esterase (NEGATIVE) Nicole/uL Urine RBC (0-2) /hpf Urine WBC (0-6) /hpf Ur Epithelial Cells (0-5) /hpf Urine Bacteria (NONE) /hpf Salicylates (2.0-20.0) mg/dL Urine Opiates Screen Negative (NEGATIVE) Urine Methadone Screen Negative (NEGATIVE) Acetaminophen (10.0-20.0) ug/ml Ur Barbiturates Screen Negative (NEGATIVE) Ur Phencyclidine Scrn Negative (NEGATIVE) Ur Amphetamines Screen Negative (NEGATIVE) U Benzodiazepines Scrn Positive H (NEGATIVE) U Oth Cocaine Metabols Negative (NEGATIVE) U Cannabinoids Screen Negative (NEGATIVE) Alcohol, Quantitative (0-10) mg/dL 10/05/18 10/04/18 10/04/18 Range/Units 00:30 22:42 21:50 WBC (4.5-11.0) 10^3/uL RBC (3.5-6.1) 10^6/uL Hgb (12.0-16.0) g/dL Hct (36.0-48.0) % MCV (80.0-105.0) fl MCH (25.0-35.0) pg MCHC (31.0-37.0) g/dl RDW (11.5-14.5) % Plt Count (120.0-450.0) 10^3/uL MPV (7.0-11.0) fl Neut % (Auto) (50.0-68.0) % Lymph % (Auto) (22.0-35.0) % [place] % (Auto) (1.0-6.0) % Eos % (Auto) (1.5-5.0) % Baso % (Auto) (0.0-3.0) % Lymph # (Auto) (1.2-3.4) [place] # (Auto) (0.1-0.6) Eos # (Auto) (0.0-0.7) Baso # (Auto) (0.0-2.0) K/mm3 Absolute Neuts (auto) (1.4-6.5) Neutrophils % (Manual) (50.0-70.0) % Lymphocytes % (Manual) (22.0-35.0) % Monocytes % (Manual) (1.0-6.0) % Platelet Evaluation (NORMAL) pCO2 41 (35-45) mm/Hg pO2 51 223.0 H (80-100) mm/Hg HCO3 20.6 L (21-28) mmol/L ABG pH 7.31 L (7.35-7.45) ABG Total CO2 21.9 L (22-28) mmol.L ABG O2 Saturation 98.1 H (95-98) % ABG O2 Content 18.3 (15-23) ML/dl ABG Base Excess -5.4 L (-2.0-3.0) mmol/L ABG Hemoglobin 13.0 (11.7-17.4) g/dL ABG Carboxyhemoglobin 0.3 L (0.5-1.5) % POC ABG HHb (Measured) 1.9 (0-5) % ABG Methemoglobin 0.3 (0.0-3.0) % ABG O2 Capacity 18.7 (16-24) mL/dl ABG Potassium (3.6-5.2) mmol/L VBG pH 7.17 L* (7.32-7.43) VBG pCO2 54.0 (40-60) VBG HCO3 19.7 L (21-28) mmol/l VBG Total CO2 21.4 L (22-28) mmol.L VBG O2 Sat (Calc) 83.5 H (40-65) % VBG Base Excess -9.2 L (0.0-2.0) mmol/L VBG Potassium 4.0 (3.6-5.2) mmol/L Hgb O2 Saturation 97.4 (95.0-98.0) % Glucose 130 H (65-105) mg/dl Lactate 5.7 H* (0.7-2.1) mmol/L FiO2 21.0 50.0 % Crit Value Called To Omero cruz Crit Value Called By Blood Gas Notified Time 2305 Sodium 140.0 (132-148) mmol/L Potassium (3.6-5.0) mmol/L Chloride 104.0 (98-107) mmol/L Carbon Dioxide (21-33) mmol/L Anion Gap (10-20) BUN (7-21) mg/dL Creatinine (0.7-1.2) mg/dl Est GFR ( Amer) Est GFR (Non-Af Amer) Random Glucose (70-110) mg/dL Serum Osmolality (272-300) mosm/kg Calcium (8.4-10.5) mg/dL Phosphorus (2.5-4.5) mg/dL Magnesium (1.7-2.2) mg/dL Total Bilirubin (0.2-1.3) mg/dL AST (14-36) U/L ALT (7-56) U/L Alkaline Phosphatase (38-126) U/L Total Creatine Kinase (35-230) U/L CK-MB (CK-2) (0.0-3.6) ng/mL CK-MB (CK-2) % (2.5-3.0) % Troponin I ng/mL Total Protein (5.8-8.3) g/dL Albumin (3.0-4.8) g/dL Globulin gm/dL Albumin/Globulin Ratio (1.1-1.8) TSH 3rd Generation (0.46-4.68) mIU/mL Arterial Blood Potassium (3.6-5.2) mmol/L Venous Blood Potassium 4.0 (3.6-5.2) mmol/L Urine Color [place] (YELLOW) Urine Appearance Sl cloudy (CLEAR) Urine pH 6.5 (4.7-8.0) Ur Specific [place] 1.020 (1.005-1.035) Urine Protein 100 H (<30 mg/dL) mg/dL Urine Glucose (UA) Negative (NEGATIVE) mg/dL Urine Ketones Negative (NEGATIVE) mg/dL Urine Blood Large H (NEGATIVE) Urine Nitrate Negative (NEGATIVE) Urine Bilirubin Negative (NEGATIVE) Urine Urobilinogen 0.2 (<1 E.U./dL) E.U./dL Ur Leukocyte Esterase Negative (NEGATIVE) Nicole/uL Urine RBC 1 - 3 H (0-2) /hpf Urine WBC 0 - 2 (0-6) /hpf Ur Epithelial Cells 3 - 4 (0-5) /hpf Urine Bacteria Occ (NONE) /hpf Salicylates (2.0-20.0) mg/dL Urine Opiates Screen (NEGATIVE) Urine Methadone Screen (NEGATIVE) Acetaminophen (10.0-20.0) ug/ml Ur Barbiturates Screen (NEGATIVE) Ur Phencyclidine Scrn (NEGATIVE) Ur Amphetamines Screen (NEGATIVE) U Benzodiazepines Scrn (NEGATIVE) U Oth Cocaine Metabols (NEGATIVE) U Cannabinoids Screen (NEGATIVE) Alcohol, Quantitative (0-10) mg/dL 10/04/18 10/04/18 10/04/18 Range/Units 21:24 21:24 21:24 WBC (4.5-11.0) 10^3/uL RBC (3.5-6.1) 10^6/uL Hgb (12.0-16.0) g/dL Hct (36.0-48.0) % MCV (80.0-105.0) fl MCH (25.0-35.0) pg MCHC (31.0-37.0) g/dl RDW (11.5-14.5) % Plt Count (120.0-450.0) 10^3/uL MPV (7.0-11.0) fl Neut % (Auto) (50.0-68.0) % Lymph % (Auto) (22.0-35.0) % [place] % (Auto) (1.0-6.0) % Eos % (Auto) (1.5-5.0) % Baso % (Auto) (0.0-3.0) % Lymph # (Auto) (1.2-3.4) [place] # (Auto) (0.1-0.6) Eos # (Auto) (0.0-0.7) Baso # (Auto) (0.0-2.0) K/mm3 Absolute Neuts (auto) (1.4-6.5) Neutrophils % (Manual) (50.0-70.0) % Lymphocytes % (Manual) (22.0-35.0) % Monocytes % (Manual) (1.0-6.0) % Platelet Evaluation (NORMAL) pCO2 (35-45) mm/Hg pO2 (80-100) mm/Hg HCO3 (21-28) mmol/L ABG pH (7.35-7.45) ABG Total CO2 (22-28) mmol.L ABG O2 Saturation (95-98) % ABG O2 Content (15-23) ML/dl ABG Base Excess (-2.0-3.0) mmol/L ABG Hemoglobin (11.7-17.4) g/dL ABG Carboxyhemoglobin (0.5-1.5) % POC ABG HHb (Measured) (0-5) % ABG Methemoglobin (0.0-3.0) % ABG O2 Capacity (16-24) mL/dl ABG Potassium (3.6-5.2) mmol/L VBG pH (7.32-7.43) VBG pCO2 (40-60) VBG HCO3 (21-28) mmol/l VBG Total CO2 (22-28) mmol.L VBG O2 Sat (Calc) (40-65) % VBG Base Excess (0.0-2.0) mmol/L VBG Potassium (3.6-5.2) mmol/L Hgb O2 Saturation (95.0-98.0) % Glucose (65-105) mg/dl Lactate (0.7-2.1) mmol/L FiO2 % Crit Value Called To Crit Value Called By Blood Gas Notified Time Sodium (132-148) mmol/L Potassium (3.6-5.0) mmol/L Chloride (98-107) mmol/L Carbon Dioxide (21-33) mmol/L Anion Gap (10-20) BUN (7-21) mg/dL Creatinine (0.7-1.2) mg/dl Est GFR ( Amer) Est GFR (Non-Af Amer) Random Glucose (70-110) mg/dL Serum Osmolality 310 H (272-300) mosm/kg Calcium (8.4-10.5) mg/dL Phosphorus 5.3 H (2.5-4.5) mg/dL Magnesium 2.2 (1.7-2.2) mg/dL Total Bilirubin (0.2-1.3) mg/dL AST (14-36) U/L ALT (7-56) U/L Alkaline Phosphatase (38-126) U/L Total Creatine Kinase (35-230) U/L CK-MB (CK-2) (0.0-3.6) ng/mL CK-MB (CK-2) % (2.5-3.0) % Troponin I ng/mL Total Protein (5.8-8.3) g/dL Albumin (3.0-4.8) g/dL Globulin gm/dL Albumin/Globulin Ratio (1.1-1.8) TSH 3rd Generation (0.46-4.68) mIU/mL Arterial Blood Potassium (3.6-5.2) mmol/L Venous Blood Potassium (3.6-5.2) mmol/L Urine Color (YELLOW) Urine Appearance (CLEAR) Urine pH (4.7-8.0) Ur Specific [place] (1.005-1.035) Urine Protein (<30 mg/dL) mg/dL Urine Glucose (UA) (NEGATIVE) mg/dL Urine Ketones (NEGATIVE) mg/dL Urine Blood (NEGATIVE) Urine Nitrate (NEGATIVE) Urine Bilirubin (NEGATIVE) Urine Urobilinogen (<1 E.U./dL) E.U./dL Ur Leukocyte Esterase (NEGATIVE) Nicole/uL Urine RBC (0-2) /hpf Urine WBC (0-6) /hpf Ur Epithelial Cells (0-5) /hpf Urine Bacteria (NONE) /hpf Salicylates (2.0-20.0) mg/dL Urine Opiates Screen (NEGATIVE) Urine Methadone Screen (NEGATIVE) Acetaminophen (10.0-20.0) ug/ml Ur Barbiturates Screen (NEGATIVE) Ur Phencyclidine Scrn (NEGATIVE) Ur Amphetamines Screen (NEGATIVE) U Benzodiazepines Scrn (NEGATIVE) U Oth Cocaine Metabols (NEGATIVE) U Cannabinoids Screen (NEGATIVE) Alcohol, Quantitative 48 H (0-10) mg/dL 10/04/18 10/04/18 10/04/18 Range/Units 21:24 21:24 21:24 WBC 12.9 H (4.5-11.0) 10^3/uL RBC 4.17 (3.5-6.1) 10^6/uL Hgb 14.1 (12.0-16.0) g/dL Hct 41.8 (36.0-48.0) % MCV 100.2 (80.0-105.0) fl MCH 33.8 (25.0-35.0) pg MCHC 33.7 (31.0-37.0) g/dl RDW 12.1 (11.5-14.5) % Plt Count 178 (120.0-450.0) 10^3/uL MPV 9.1 (7.0-11.0) fl Neut % (Auto) 90.3 H (50.0-68.0) % Lymph % (Auto) 6.1 L (22.0-35.0) % [place] % (Auto) 3.5 (1.0-6.0) % Eos % (Auto) 0.0 L (1.5-5.0) % Baso % (Auto) 0.1 (0.0-3.0) % Lymph # (Auto) 0.8 L (1.2-3.4) [place] # (Auto) 0.5 (0.1-0.6) Eos # (Auto) 0.0 (0.0-0.7) Baso # (Auto) 0.01 (0.0-2.0) K/mm3 Absolute Neuts (auto) 11.64 H (1.4-6.5) Neutrophils % (Manual) 88 H (50.0-70.0) % Lymphocytes % (Manual) 6 L (22.0-35.0) % Monocytes % (Manual) 6 (1.0-6.0) % Platelet Evaluation Normal (NORMAL) pCO2 (35-45) mm/Hg pO2 (80-100) mm/Hg HCO3 (21-28) mmol/L ABG pH (7.35-7.45) ABG Total CO2 (22-28) mmol.L ABG O2 Saturation (95-98) % ABG O2 Content (15-23) ML/dl ABG Base Excess (-2.0-3.0) mmol/L ABG Hemoglobin (11.7-17.4) g/dL ABG Carboxyhemoglobin (0.5-1.5) % POC ABG HHb (Measured) (0-5) % ABG Methemoglobin (0.0-3.0) % ABG O2 Capacity (16-24) mL/dl ABG Potassium (3.6-5.2) mmol/L VBG pH (7.32-7.43) VBG pCO2 (40-60) VBG HCO3 (21-28) mmol/l VBG Total CO2 (22-28) mmol.L VBG O2 Sat (Calc) (40-65) % VBG Base Excess (0.0-2.0) mmol/L VBG Potassium (3.6-5.2) mmol/L Hgb O2 Saturation (95.0-98.0) % Glucose (65-105) mg/dl Lactate (0.7-2.1) mmol/L FiO2 % Crit Value Called To Crit Value Called By Blood Gas Notified Time Sodium 137 (132-148) mmol/L Potassium 4.5 (3.6-5.0) mmol/L Chloride 101 (98-107) mmol/L Carbon Dioxide 19 L (21-33) mmol/L Anion Gap 22 H (10-20) BUN 23 H (7-21) mg/dL Creatinine 1.6 H (0.7-1.2) mg/dl Est GFR ( Amer) 39 Est GFR (Non-Af Amer) 32 Random Glucose 154 H (70-110) mg/dL Serum Osmolality (272-300) mosm/kg Calcium 8.9 (8.4-10.5) mg/dL Phosphorus (2.5-4.5) mg/dL Magnesium (1.7-2.2) mg/dL Total Bilirubin 0.3 (0.2-1.3) mg/dL AST 84 H (14-36) U/L ALT 23 (7-56) U/L Alkaline Phosphatase 54 (38-126) U/L Total Creatine Kinase 6523 H (35-230) U/L CK-MB (CK-2) 29.0 H (0.0-3.6) ng/mL CK-MB (CK-2) % 0.4 L (2.5-3.0) % Troponin I 0.08 D ng/mL Total Protein 7.3 (5.8-8.3) g/dL Albumin 4.3 (3.0-4.8) g/dL Globulin 3.0 gm/dL Albumin/Globulin Ratio 1.4 (1.1-1.8) TSH 3rd Generation (0.46-4.68) mIU/mL Arterial Blood Potassium (3.6-5.2) mmol/L Venous Blood Potassium (3.6-5.2) mmol/L Urine Color (YELLOW) Urine Appearance (CLEAR) Urine pH (4.7-8.0) Ur Specific [place] (1.005-1.035) Urine Protein (<30 mg/dL) mg/dL Urine Glucose (UA) (NEGATIVE) mg/dL Urine Ketones (NEGATIVE) mg/dL Urine Blood (NEGATIVE) Urine Nitrate (NEGATIVE) Urine Bilirubin (NEGATIVE) Urine Urobilinogen (<1 E.U./dL) E.U./dL Ur Leukocyte Esterase (NEGATIVE) Nicole/uL Urine RBC (0-2) /hpf Urine WBC (0-6) /hpf Ur Epithelial Cells (0-5) /hpf Urine Bacteria (NONE) /hpf Salicylates < 1 L (2.0-20.0) mg/dL Urine Opiates Screen (NEGATIVE) Urine Methadone Screen (NEGATIVE) Acetaminophen < 10.0 L (10.0-20.0) ug/ml Ur Barbiturates Screen (NEGATIVE) Ur Phencyclidine Scrn (NEGATIVE) Ur Amphetamines Screen (NEGATIVE) U Benzodiazepines Scrn (NEGATIVE) U Oth Cocaine Metabols (NEGATIVE) U Cannabinoids Screen (NEGATIVE) Alcohol, Quantitative (0-10) mg/dL Laboratory Results - last 24 hr 10/04/18 10/04/18 10/04/18 21:24 21:24 21:24 WBC 12.9 H RBC 4.17 Hgb 14.1 Hct 41.8 MCV 100.2 MCH 33.8 MCHC 33.7 RDW 12.1 Plt Count 178 MPV 9.1 Neut % (Auto) 90.3 H Lymph % (Auto) 6.1 L [place] % (Auto) 3.5 Eos % (Auto) 0.0 L Baso % (Auto) 0.1 Lymph # (Auto) 0.8 L [place] # (Auto) 0.5 Eos # (Auto) 0.0 Baso # (Auto) 0.01 Absolute Neuts (auto) 11.64 H Neutrophils % (Manual) 88 H Lymphocytes % (Manual) 6 L Monocytes % (Manual) 6 Platelet Evaluation Normal pCO2 pO2 HCO3 ABG pH ABG Total CO2 ABG O2 Saturation ABG O2 Content ABG Base Excess ABG Hemoglobin ABG Carboxyhemoglobin POC ABG HHb (Measured) ABG Methemoglobin ABG O2 Capacity ABG Potassium VBG pH VBG pCO2 VBG HCO3 VBG Total CO2 VBG O2 Sat (Calc) VBG Base Excess VBG Potassium Hgb O2 Saturation Glucose Lactate FiO2 Crit Value Called To Crit Value Called By Blood Gas Notified Time Sodium 137 Potassium 4.5 Chloride 101 Carbon Dioxide 19 L Anion Gap 22 H BUN 23 H Creatinine 1.6 H Est GFR ( Amer) 39 Est GFR (Non-Af Amer) 32 Random Glucose 154 H Serum Osmolality Calcium 8.9 Phosphorus Magnesium Total Bilirubin 0.3 AST 84 H ALT 23 Alkaline Phosphatase 54 Total Creatine Kinase 6523 H CK-MB (CK-2) 29.0 H CK-MB (CK-2) % 0.4 L Troponin I 0.08 D Total Protein 7.3 Albumin 4.3 Globulin 3.0 Albumin/Globulin Ratio 1.4 TSH 3rd Generation Arterial Blood Potassium Venous Blood Potassium Urine Color Urine Appearance Urine pH Ur Specific [place] Urine Protein Urine Glucose (UA) Urine Ketones Urine Blood Urine Nitrate Urine Bilirubin Urine Urobilinogen Ur Leukocyte Esterase Urine RBC Urine WBC Ur Epithelial Cells Urine Bacteria Salicylates < 1 L Urine Opiates Screen Urine Methadone Screen Acetaminophen < 10.0 L Ur Barbiturates Screen Ur Phencyclidine Scrn Ur Amphetamines Screen U Benzodiazepines Scrn U Oth Cocaine Metabols U Cannabinoids Screen Alcohol, Quantitative 10/04/18 10/04/18 10/04/18 21:24 21:24 21:24 WBC RBC Hgb Hct MCV MCH MCHC RDW Plt Count MPV Neut % (Auto) Lymph % (Auto) [place] % (Auto) Eos % (Auto) Baso % (Auto) Lymph # (Auto) [place] # (Auto) Eos # (Auto) Baso # (Auto) Absolute Neuts (auto) Neutrophils % (Manual) Lymphocytes % (Manual) Monocytes % (Manual) Platelet Evaluation pCO2 pO2 HCO3 ABG pH ABG Total CO2 ABG O2 Saturation ABG O2 Content ABG Base Excess ABG Hemoglobin ABG Carboxyhemoglobin POC ABG HHb (Measured) ABG Methemoglobin ABG O2 Capacity ABG Potassium VBG pH VBG pCO2 VBG HCO3 VBG Total CO2 VBG O2 Sat (Calc) VBG Base Excess VBG Potassium Hgb O2 Saturation Glucose Lactate FiO2 Crit Value Called To Crit Value Called By Blood Gas Notified Time Sodium Potassium Chloride Carbon Dioxide Anion Gap BUN Creatinine Est GFR ( Amer) Est GFR (Non-Af Amer) Random Glucose Serum Osmolality 310 H Calcium Phosphorus 5.3 H Magnesium 2.2 Total Bilirubin AST ALT Alkaline Phosphatase Total Creatine Kinase CK-MB (CK-2) CK-MB (CK-2) % Troponin I Total Protein Albumin Globulin Albumin/Globulin Ratio TSH 3rd Generation Arterial Blood Potassium Venous Blood Potassium Urine Color Urine Appearance Urine pH Ur Specific [place] Urine Protein Urine Glucose (UA) Urine Ketones Urine Blood Urine Nitrate Urine Bilirubin Urine Urobilinogen Ur Leukocyte Esterase Urine RBC Urine WBC Ur Epithelial Cells Urine Bacteria Salicylates Urine Opiates Screen Urine Methadone Screen Acetaminophen Ur Barbiturates Screen Ur Phencyclidine Scrn Ur Amphetamines Screen U Benzodiazepines Scrn U Oth Cocaine Metabols U Cannabinoids Screen Alcohol, Quantitative 48 H 10/04/18 10/04/18 10/05/18 21:50 22:42 00:30 WBC RBC Hgb Hct MCV MCH MCHC RDW Plt Count MPV Neut % (Auto) Lymph % (Auto) [place] % (Auto) Eos % (Auto) Baso % (Auto) Lymph # (Auto) [place] # (Auto) Eos # (Auto) Baso # (Auto) Absolute Neuts (auto) Neutrophils % (Manual) Lymphocytes % (Manual) Monocytes % (Manual) Platelet Evaluation pCO2 41 pO2 223.0 H 51 HCO3 20.6 L ABG pH 7.31 L ABG Total CO2 21.9 L ABG O2 Saturation 98.1 H ABG O2 Content 18.3 ABG Base Excess -5.4 L ABG Hemoglobin 13.0 ABG Carboxyhemoglobin 0.3 L POC ABG HHb (Measured) 1.9 ABG Methemoglobin 0.3 ABG O2 Capacity 18.7 ABG Potassium VBG pH 7.17 L* VBG pCO2 54.0 VBG HCO3 19.7 L VBG Total CO2 21.4 L VBG O2 Sat (Calc) 83.5 H VBG Base Excess -9.2 L VBG Potassium 4.0 Hgb O2 Saturation 97.4 Glucose 130 H Lactate 5.7 H* FiO2 50.0 21.0 Crit Value Called To Omero cruz Crit Value Called By Blood Gas Notified Time 2305 Sodium 140.0 Potassium Chloride 104.0 Carbon Dioxide Anion Gap BUN Creatinine Est GFR ( Amer) Est GFR (Non-Af Amer) Random Glucose Serum Osmolality Calcium Phosphorus Magnesium Total Bilirubin AST ALT Alkaline Phosphatase Total Creatine Kinase CK-MB (CK-2) CK-MB (CK-2) % Troponin I Total Protein Albumin Globulin Albumin/Globulin Ratio TSH 3rd Generation Arterial Blood Potassium Venous Blood Potassium 4.0 Urine Color [place] Urine Appearance Sl cloudy Urine pH 6.5 Ur Specific [place] 1.020 Urine Protein 100 H Urine Glucose (UA) Negative Urine Ketones Negative Urine Blood Large H Urine Nitrate Negative Urine Bilirubin Negative Urine Urobilinogen 0.2 Ur Leukocyte Esterase Negative Urine RBC 1 - 3 H Urine WBC 0 - 2 Ur Epithelial Cells 3 - 4 Urine Bacteria Occ Salicylates Urine Opiates Screen Urine Methadone Screen Acetaminophen Ur Barbiturates Screen Ur Phencyclidine Scrn Ur Amphetamines Screen U Benzodiazepines Scrn U Oth Cocaine Metabols U Cannabinoids Screen Alcohol, Quantitative 10/05/18 10/05/18 10/05/18 00:30 01:50 04:55 WBC RBC Hgb Hct MCV MCH MCHC RDW Plt Count MPV Neut % (Auto) Lymph % (Auto) [place] % (Auto) Eos % (Auto) Baso % (Auto) Lymph # (Auto) [place] # (Auto) Eos # (Auto) Baso # (Auto) Absolute Neuts (auto) Neutrophils % (Manual) Lymphocytes % (Manual) Monocytes % (Manual) Platelet Evaluation pCO2 37 pO2 41 196.0 H HCO3 18.2 L ABG pH 7.30 L ABG Total CO2 19.3 L ABG O2 Saturation 98.5 H ABG O2 Content ABG Base Excess -7.5 L ABG Hemoglobin ABG Carboxyhemoglobin POC ABG HHb (Measured) ABG Methemoglobin ABG O2 Capacity ABG Potassium 4.0 VBG pH 7.16 L* VBG pCO2 64.0 H VBG HCO3 22.8 VBG Total CO2 24.8 VBG O2 Sat (Calc) 73.1 H VBG Base Excess -6.9 L VBG Potassium 3.9 Hgb O2 Saturation Glucose 138 H 127 H Lactate 5.6 H* 1.8 FiO2 21.0 40.0 Crit Value Called To Meli saenz rn ccu Crit Value Called By Alysa Blood Gas Notified Time 216 Sodium 140.0 138.0 Potassium Chloride 105.0 109.0 H Carbon Dioxide Anion Gap BUN Creatinine Est GFR ( Amer) Est GFR (Non-Af Amer) Random Glucose Serum Osmolality Calcium Phosphorus Magnesium Total Bilirubin AST ALT Alkaline Phosphatase Total Creatine Kinase CK-MB (CK-2) CK-MB (CK-2) % Troponin I Total Protein Albumin Globulin Albumin/Globulin Ratio TSH 3rd Generation Arterial Blood Potassium 4.0 Venous Blood Potassium 3.9 Urine Color Urine Appearance Urine pH Ur Specific [place] Urine Protein Urine Glucose (UA) Urine Ketones Urine Blood Urine Nitrate Urine Bilirubin Urine Urobilinogen Ur Leukocyte Esterase Urine RBC Urine WBC Ur Epithelial Cells Urine Bacteria Salicylates Urine Opiates Screen Negative Urine Methadone Screen Negative Acetaminophen Ur Barbiturates Screen Negative Ur Phencyclidine Scrn Negative Ur Amphetamines Screen Negative U Benzodiazepines Scrn Positive H U Oth Cocaine Metabols Negative U Cannabinoids Screen Negative Alcohol, Quantitative 10/05/18 10/05/18 10/05/18 06:30 06:30 06:30 WBC 15.2 H RBC 4.93 Hgb 16.6 H D Hct 50.1 H MCV 101.6 MCH 33.7 MCHC 33.1 RDW 12.2 Plt Count 186 MPV 9.3 Neut % (Auto) 77.8 H Lymph % (Auto) 7.3 L [place] % (Auto) 14.8 H Eos % (Auto) 0.0 L Baso % (Auto) 0.1 Lymph # (Auto) 1.1 L [place] # (Auto) 2.2 H Eos # (Auto) 0.0 Baso # (Auto) 0.01 Absolute Neuts (auto) 11.81 H Neutrophils % (Manual) Lymphocytes % (Manual) Monocytes % (Manual) Platelet Evaluation pCO2 pO2 HCO3 ABG pH ABG Total CO2 ABG O2 Saturation ABG O2 Content ABG Base Excess ABG Hemoglobin ABG Carboxyhemoglobin POC ABG HHb (Measured) ABG Methemoglobin ABG O2 Capacity ABG Potassium VBG pH VBG pCO2 VBG HCO3 VBG Total CO2 VBG O2 Sat (Calc) VBG Base Excess VBG Potassium Hgb O2 Saturation Glucose Lactate FiO2 Crit Value Called To Crit Value Called By Blood Gas Notified Time Sodium 142 Potassium 4.9 Chloride 110 H Carbon Dioxide 20 L Anion Gap 16 BUN 28 H Creatinine 1.2 Est GFR ( Amer) 54 Est GFR (Non-Af Amer) 45 Random Glucose 124 H Serum Osmolality Calcium 8.2 L Phosphorus 4.4 Magnesium 2.0 Total Bilirubin 0.4 AST 516 H D ALT 101 H Alkaline Phosphatase 63 Total Creatine Kinase CK-MB (CK-2) CK-MB (CK-2) % Troponin I 0.83 H* D Total Protein 6.8 Albumin 3.5 Globulin 3.3 Albumin/Globulin Ratio 1.1 TSH 3rd Generation 0.43 L Arterial Blood Potassium Venous Blood Potassium Urine Color Urine Appearance Urine pH Ur Specific [place] Urine Protein Urine Glucose (UA) Urine Ketones Urine Blood Urine Nitrate Urine Bilirubin Urine Urobilinogen Ur Leukocyte Esterase Urine RBC Urine WBC Ur Epithelial Cells Urine Bacteria Salicylates Urine Opiates Screen Urine Methadone Screen Acetaminophen Ur Barbiturates Screen Ur Phencyclidine Scrn Ur Amphetamines Screen U Benzodiazepines Scrn U Oth Cocaine Metabols U Cannabinoids Screen Alcohol, Quantitative Radiology Impressions: Radiology Impressions Chest X-Ray 10/04/18 20:46 IMPRESSION: The endotracheal tube is at the level of the ezio and could be withdrawn 15-[address] 10/04/18 20:47 IMPRESSION: Normal CT of the Head. Chest X-Ray 10/05/18 07:00 IMPRESSION: No active disease. EKG/Cardiology Studies: Cardiology / EKG Studies 10/04/18 20:46 ELECTROCARDIOGRAM Stat Comment: Reason For Exam: arrythmia Critical Care Progress Note - Nutrition Nutrition: Nutrition Category Date Time Status NPO Diet [DIET] Diets 10/05/18 Breakfast Ordered Assessment/Plan - Assessment and Plan (Free Text) Assessment: Pt is a 67 yo female with a PMH of Grave's Disease, bezo abuse, previous overdose who was found unresponsive by EMS with an empty medication bottle near her, pt was intubated, but has since been extubated. Plan: Neuro - overdose, 1:1 sitter - psyc consulted - extubated today - versed has been discontinued - continue to monitor neuro status Cardio - Tachycardic - HD stable, Maintain MAP>65 - EKG shows no ST or T wave changes - Troponin 0.08, 0.83, continue to trend Pulm - extubated - AB/196/18.2/7.3 - CXR: correct placement of ET tube verified - Maintain SpO2 >92% GI - Case discussed with Poison Control by night team - AST/ALT 516/101 - started NAC protocol - will obtain another CMP later today to monitor LFT - PPX /Nephro - BUN/Cr 28/1.2 - KRIS - CPK follow up Endo - Maintain euglycemia Heme/Onc - H/H stable - Hgb 16.6 ID - Afebrile, no leukocytosis - blood cultures follow up - procal follow up Pt seen, examined, assessment and plan discussed with Dr Kaylee Herman PGY1 - Date & Time Date: 10/05/18 Time: 07:00 <Aron Page - Last Filed: 10/05/18 12:46> CCU Objective - Vital Signs / Intake & Output Vital Signs (Last 4 hours): Vital Signs Temp Pulse Resp BP Pulse Ox 10/05/18 11:20 100.4 F H 120 H 17 98 10/05/18 11:10 100.6 F H 123 H 19 98 10/05/18 11:00 100.6 F H 118 H 21 139/63 100 10/05/18 10:50 100.6 F H 119 H 23 100 10/05/18 10:40 100.6 F H 122 H 23 100 10/05/18 10:30 100.6 F H 126 H 24 97 10/05/18 10:20 100.6 F H 127 H 18 98 10/05/18 10:14 100.6 F H 130 H 98 10/05/18 10:10 100.6 F H 132 H 21 98 10/05/18 10:01 100.6 F H 136 H 22 145/120 H 98 10/05/18 10:00 100.6 F H 136 H 21 99 10/05/18 09:50 100.6 F H 128 H 99 10/05/18 09:40 100.6 F H 130 H 99 10/05/18 09:30 100.6 F H 128 H 98 10/05/18 09:20 100.6 F H 129 H 98 10/05/18 09:10 100.6 F H 133 H 98 10/05/18 09:00 100.6 F H 133 H 128/70 98 10/05/18 08:50 100.6 F H 125 H 99 10/05/18 08:40 100.6 F H 123 H 99 Intake and Output (Last 8hrs): Intake & Output 10/04/18 10/05/18 10/05/18 22:59 06:59 14:59 Intake Total 2958 Output Total 300 Balance 2658 Weight 130 lb 127 lb 14.4 oz Intake: IV 2958 Right Wrist 2950 Output: Urine 300 Urine, Voided 300 Other: Voiding Method Incontinent - Medications Active Medications: Active Medications Generic Name Dose Route Start Last Admin Trade Name Freq PRN Reason Stop Dose Admin Heparin Sodium (Porcine) 5,000 units 10/05/18 06:00 10/05/18 06:19 Heparin SC 5,000 units Q8 LI Administration Protocol Sodium Chloride 1,000 mls @ 150 mls/hr 10/04/18 23:45 10/05/18 10:14 Sodium Chloride 0.9% IV 150 mls/hr .[id number] LI Administration Acetylcysteine 5,772 mg/ 1,028.86 mls @ 62.5 mls/hr 10/05/18 09:55 Dextrose IV 10/06/18 02:22 .[id number] ONE Acetylcysteine 2,886 mg/ 514.43 mls @ 125 mls/hr 10/05/18 10:55 10/05/18 12:29 Dextrose IV 10/05/18 15:01 125 mls/hr .[id number] ONE Administration Pantoprazole Sodium 40 mg 10/05/18 10:00 10/05/18 10:17 Protonix Inj IVP 40 mg DAILY LI Administration - Patient Studies Lab Studies: Lab Studies 10/05/18 10/05/18 10/05/18 Range/Units 11:15 06:30 06:30 WBC (4.5-11.0) 10^3/uL RBC (3.5-6.1) 10^6/uL Hgb (12.0-16.0) g/dL Hct (36.0-48.0) % MCV (80.0-105.0) fl MCH (25.0-35.0) pg MCHC (31.0-37.0) g/dl RDW (11.5-14.5) % Plt Count (120.0-450.0) 10^3/uL MPV (7.0-11.0) fl Neut % (Auto) (50.0-68.0) % Lymph % (Auto) (22.0-35.0) % [place] % (Auto) (1.0-6.0) % Eos % (Auto) (1.5-5.0) % Baso % (Auto) (0.0-3.0) % Lymph # (Auto) (1.2-3.4) [place] # (Auto) (0.1-0.6) Eos # (Auto) (0.0-0.7) Baso # (Auto) (0.0-2.0) K/mm3 Absolute Neuts (auto) (1.4-6.5) Neutrophils % (Manual) (50.0-70.0) % Lymphocytes % (Manual) (22.0-35.0) % Monocytes % (Manual) (1.0-6.0) % Platelet Evaluation (NORMAL) pCO2 (35-45) mm/Hg pO2 (80-100) mm/Hg HCO3 (21-28) mmol/L ABG pH (7.35-7.45) ABG Total CO2 (22-28) mmol.L ABG O2 Saturation (95-98) % ABG O2 Content (15-23) ML/dl ABG Base Excess (-2.0-3.0) mmol/L ABG Hemoglobin (11.7-17.4) g/dL ABG Carboxyhemoglobin (0.5-1.5) % POC ABG HHb (Measured) (0-5) % ABG Methemoglobin (0.0-3.0) % ABG O2 Capacity (16-24) mL/dl ABG Potassium (3.6-5.2) mmol/L VBG pH (7.32-7.43) VBG pCO2 (40-60) VBG HCO3 (21-28) mmol/l VBG Total CO2 (22-28) mmol.L VBG O2 Sat (Calc) (40-65) % VBG Base Excess (0.0-2.0) mmol/L VBG Potassium (3.6-5.2) mmol/L Hgb O2 Saturation (95.0-98.0) % Glucose (65-105) mg/dl Lactate (0.7-2.1) mmol/L FiO2 % Crit Value Called To Crit Value Called By Blood Gas Notified Time Sodium 141 142 (132-148) mmol/L Potassium 4.6 4.9 (3.6-5.0) mmol/L Chloride 111 H 110 H (98-107) mmol/L Carbon Dioxide 20 L 20 L (21-33) mmol/L Anion Gap 14 16 (10-20) BUN 26 H 28 H (7-21) mg/dL Creatinine 1.1 1.2 (0.7-1.2) mg/dl Est GFR ( Amer) 60 54 Est GFR (Non-Af Amer) 49 45 Random Glucose 118 H 124 H (70-110) mg/dL Serum Osmolality (272-300) mosm/kg Calcium 8.2 L 8.2 L (8.4-10.5) mg/dL Phosphorus 4.4 (2.5-4.5) mg/dL Magnesium 2.0 (1.7-2.2) mg/dL Total Bilirubin 0.3 0.4 (0.2-1.3) mg/dL AST 492 H 516 H D (14-36) U/L ALT 99 H 101 H (7-56) U/L Alkaline Phosphatase 61 63 (38-126) U/L Total Creatine Kinase (35-230) U/L CK-MB (CK-2) (0.0-3.6) ng/mL CK-MB (CK-2) % (2.5-3.0) % Troponin I 0.83 H* D ng/mL Total Protein 6.3 6.8 (5.8-8.3) g/dL Albumin 3.4 3.5 (3.0-4.8) g/dL Globulin 2.9 3.3 gm/dL Albumin/Globulin Ratio 1.2 1.1 (1.1-1.8) TSH 3rd Generation 0.43 L (0.46-4.68) mIU/mL Arterial Blood Potassium (3.6-5.2) mmol/L Venous Blood Potassium (3.6-5.2) mmol/L Urine Color (YELLOW) Urine Appearance (CLEAR) Urine pH (4.7-8.0) Ur Specific [place] (1.005-1.035) Urine Protein (<30 mg/dL) mg/dL Urine Glucose (UA) (NEGATIVE) mg/dL Urine Ketones (NEGATIVE) mg/dL Urine Blood (NEGATIVE) Urine Nitrate (NEGATIVE) Urine Bilirubin (NEGATIVE) Urine Urobilinogen (<1 E.U./dL) E.U./dL Ur Leukocyte Esterase (NEGATIVE) Nicole/uL Urine RBC (0-2) /hpf Urine WBC (0-6) /hpf Ur Epithelial Cells (0-5) /hpf Urine Bacteria (NONE) /hpf Salicylates (2.0-20.0) mg/dL Urine Opiates Screen (NEGATIVE) Urine Methadone Screen (NEGATIVE) Acetaminophen (10.0-20.0) ug/ml Ur Barbiturates Screen (NEGATIVE) Ur Phencyclidine Scrn (NEGATIVE) Ur Amphetamines Screen (NEGATIVE) U Benzodiazepines Scrn (NEGATIVE) U Oth Cocaine Metabols (NEGATIVE) U Cannabinoids Screen (NEGATIVE) Alcohol, Quantitative (0-10) mg/dL 10/05/18 10/05/18 10/05/18 Range/Units 06:30 04:55 01:50 WBC 15.2 H (4.5-11.0) 10^3/uL RBC 4.93 (3.5-6.1) 10^6/uL Hgb 16.6 H D (12.0-16.0) g/dL Hct 50.1 H (36.0-48.0) % MCV 101.6 (80.0-105.0) fl MCH 33.7 (25.0-35.0) pg MCHC 33.1 (31.0-37.0) g/dl RDW 12.2 (11.5-14.5) % Plt Count 186 (120.0-450.0) 10^3/uL MPV 9.3 (7.0-11.0) fl Neut % (Auto) 77.8 H (50.0-68.0) % Lymph % (Auto) 7.3 L (22.0-35.0) % [place] % (Auto) 14.8 H (1.0-6.0) % Eos % (Auto) 0.0 L (1.5-5.0) % Baso % (Auto) 0.1 (0.0-3.0) % Lymph # (Auto) 1.1 L (1.2-3.4) [place] # (Auto) 2.2 H (0.1-0.6) Eos # (Auto) 0.0 (0.0-0.7) Baso # (Auto) 0.01 (0.0-2.0) K/mm3 Absolute Neuts (auto) 11.81 H (1.4-6.5) Neutrophils % (Manual) (50.0-70.0) % Lymphocytes % (Manual) (22.0-35.0) % Monocytes % (Manual) (1.0-6.0) % Platelet Evaluation (NORMAL) pCO2 37 (35-45) mm/Hg pO2 196.0 H 41 (80-100) mm/Hg HCO3 18.2 L (21-28) mmol/L ABG pH 7.30 L (7.35-7.45) ABG Total CO2 19.3 L (22-28) mmol.L ABG O2 Saturation 98.5 H (95-98) % ABG O2 Content (15-23) ML/dl ABG Base Excess -7.5 L (-2.0-3.0) mmol/L ABG Hemoglobin (11.7-17.4) g/dL ABG Carboxyhemoglobin (0.5-1.5) % POC ABG HHb (Measured) (0-5) % ABG Methemoglobin (0.0-3.0) % ABG O2 Capacity (16-24) mL/dl ABG Potassium 4.0 (3.6-5.2) mmol/L VBG pH 7.16 L* (7.32-7.43) VBG pCO2 64.0 H (40-60) VBG HCO3 22.8 (21-28) mmol/l VBG Total CO2 24.8 (22-28) mmol.L VBG O2 Sat (Calc) 73.1 H (40-65) % VBG Base Excess -6.9 L (0.0-2.0) mmol/L VBG Potassium 3.9 (3.6-5.2) mmol/L Hgb O2 Saturation (95.0-98.0) % Glucose 127 H 138 H (65-105) mg/dl Lactate 1.8 5.6 H* (0.7-2.1) mmol/L FiO2 40.0 21.0 % Crit Value Called To Meli saenz actuarial internship Crit Value Called By [facility] Blood Gas Notified Time 216 Sodium 138.0 140.0 (132-148) mmol/L Potassium (3.6-5.0) mmol/L Chloride 109.0 H 105.0 (98-107) mmol/L Carbon Dioxide (21-33) mmol/L Anion Gap (10-20) BUN (7-21) mg/dL Creatinine (0.7-1.2) mg/dl Est GFR ( Amer) Est GFR (Non-Af Amer) Random Glucose (70-110) mg/dL Serum Osmolality (272-300) mosm/kg Calcium (8.4-10.5) mg/dL Phosphorus (2.5-4.5) mg/dL Magnesium (1.7-2.2) mg/dL Total Bilirubin (0.2-1.3) mg/dL AST (14-36) U/L ALT (7-56) U/L Alkaline Phosphatase (38-126) U/L Total Creatine Kinase (35-230) U/L CK-MB (CK-2) (0.0-3.6) ng/mL CK-MB (CK-2) % (2.5-3.0) % Troponin I ng/mL Total Protein (5.8-8.3) g/dL Albumin (3.0-4.8) g/dL Globulin gm/dL Albumin/Globulin Ratio (1.1-1.8) TSH 3rd Generation (0.46-4.68) mIU/mL Arterial Blood Potassium 4.0 (3.6-5.2) mmol/L Venous Blood Potassium 3.9 (3.6-5.2) mmol/L Urine Color (YELLOW) Urine Appearance (CLEAR) Urine pH (4.7-8.0) Ur Specific [place] (1.005-1.035) Urine Protein (<30 mg/dL) mg/dL Urine Glucose (UA) (NEGATIVE) mg/dL Urine Ketones (NEGATIVE) mg/dL Urine Blood (NEGATIVE) Urine Nitrate (NEGATIVE) Urine Bilirubin (NEGATIVE) Urine Urobilinogen (<1 E.U./dL) E.U./dL Ur Leukocyte Esterase (NEGATIVE) Nicole/uL Urine RBC (0-2) /hpf Urine WBC (0-6) /hpf Ur Epithelial Cells (0-5) /hpf Urine Bacteria (NONE) /hpf Salicylates (2.0-20.0) mg/dL Urine Opiates Screen (NEGATIVE) Urine Methadone Screen (NEGATIVE) Acetaminophen (10.0-20.0) ug/ml Ur Barbiturates Screen (NEGATIVE) Ur Phencyclidine Scrn (NEGATIVE) Ur Amphetamines Screen (NEGATIVE) U Benzodiazepines Scrn (NEGATIVE) U Oth Cocaine Metabols (NEGATIVE) U Cannabinoids Screen (NEGATIVE) Alcohol, Quantitative (0-10) mg/dL 10/05/18 10/05/18 10/04/18 Range/Units 00:30 00:30 22:42 WBC (4.5-11.0) 10^3/uL RBC (3.5-6.1) 10^6/uL Hgb (12.0-16.0) g/dL Hct (36.0-48.0) % MCV (80.0-105.0) fl MCH (25.0-35.0) pg MCHC (31.0-37.0) g/dl RDW (11.5-14.5) % Plt Count (120.0-450.0) 10^3/uL MPV (7.0-11.0) fl Neut % (Auto) (50.0-68.0) % Lymph % (Auto) (22.0-35.0) % [place] % (Auto) (1.0-6.0) % Eos % (Auto) (1.5-5.0) % Baso % (Auto) (0.0-3.0) % Lymph # (Auto) (1.2-3.4) [place] # (Auto) (0.1-0.6) Eos # (Auto) (0.0-0.7) Baso # (Auto) (0.0-2.0) K/mm3 Absolute Neuts (auto) (1.4-6.5) Neutrophils % (Manual) (50.0-70.0) % Lymphocytes % (Manual) (22.0-35.0) % Monocytes % (Manual) (1.0-6.0) % Platelet Evaluation (NORMAL) pCO2 (35-45) mm/Hg pO2 51 (80-100) mm/Hg HCO3 (21-28) mmol/L ABG pH (7.35-7.45) ABG Total CO2 (22-28) mmol.L ABG O2 Saturation (95-98) % ABG O2 Content (15-23) ML/dl ABG Base Excess (-2.0-3.0) mmol/L ABG Hemoglobin (11.7-17.4) g/dL ABG Carboxyhemoglobin (0.5-1.5) % POC ABG HHb (Measured) (0-5) % ABG Methemoglobin (0.0-3.0) % ABG O2 Capacity (16-24) mL/dl ABG Potassium (3.6-5.2) mmol/L VBG pH 7.17 L* (7.32-7.43) VBG pCO2 54.0 (40-60) VBG HCO3 19.7 L (21-28) mmol/l VBG Total CO2 21.4 L (22-28) mmol.L VBG O2 Sat (Calc) 83.5 H (40-65) % VBG Base Excess -9.2 L (0.0-2.0) mmol/L VBG Potassium 4.0 (3.6-5.2) mmol/L Hgb O2 Saturation (95.0-98.0) % Glucose 130 H (65-105) mg/dl Lactate 5.7 H* (0.7-2.1) mmol/L FiO2 21.0 % Crit Value Called To Omero cruz Crit Value Called By Blood Gas Notified Time 2305 Sodium 140.0 (132-148) mmol/L Potassium (3.6-5.0) mmol/L Chloride 104.0 (98-107) mmol/L Carbon Dioxide (21-33) mmol/L Anion Gap (10-20) BUN (7-21) mg/dL Creatinine (0.7-1.2) mg/dl Est GFR ( Amer) Est GFR (Non-Af Amer) Random Glucose (70-110) mg/dL Serum Osmolality (272-300) mosm/kg Calcium (8.4-10.5) mg/dL Phosphorus (2.5-4.5) mg/dL Magnesium (1.7-2.2) mg/dL Total Bilirubin (0.2-1.3) mg/dL AST (14-36) U/L ALT (7-56) U/L Alkaline Phosphatase (38-126) U/L Total Creatine Kinase (35-230) U/L CK-MB (CK-2) (0.0-3.6) ng/mL CK-MB (CK-2) % (2.5-3.0) % Troponin I ng/mL Total Protein (5.8-8.3) g/dL Albumin (3.0-4.8) g/dL Globulin gm/dL Albumin/Globulin Ratio (1.1-1.8) TSH 3rd Generation (0.46-4.68) mIU/mL Arterial Blood Potassium (3.6-5.2) mmol/L Venous Blood Potassium 4.0 (3.6-5.2) mmol/L Urine Color [place] (YELLOW) Urine Appearance Sl cloudy (CLEAR) Urine pH 6.5 (4.7-8.0) Ur Specific [place] 1.020 (1.005-1.035) Urine Protein 100 H (<30 mg/dL) mg/dL Urine Glucose (UA) Negative (NEGATIVE) mg/dL Urine Ketones Negative (NEGATIVE) mg/dL Urine Blood Large H (NEGATIVE) Urine Nitrate Negative (NEGATIVE) Urine Bilirubin Negative (NEGATIVE) Urine Urobilinogen 0.2 (<1 E.U./dL) E.U./dL Ur Leukocyte Esterase Negative (NEGATIVE) Nicole/uL Urine RBC 1 - 3 H (0-2) /hpf Urine WBC 0 - 2 (0-6) /hpf Ur Epithelial Cells 3 - 4 (0-5) /hpf Urine Bacteria Occ (NONE) /hpf Salicylates (2.0-20.0) mg/dL Urine Opiates Screen Negative (NEGATIVE) Urine Methadone Screen Negative (NEGATIVE) Acetaminophen (10.0-20.0) ug/ml Ur Barbiturates Screen Negative (NEGATIVE) Ur Phencyclidine Scrn Negative (NEGATIVE) Ur Amphetamines Screen Negative (NEGATIVE) U Benzodiazepines Scrn Positive H (NEGATIVE) U Oth Cocaine Metabols Negative (NEGATIVE) U Cannabinoids Screen Negative (NEGATIVE) Alcohol, Quantitative (0-10) mg/dL 10/04/18 10/04/18 10/04/18 Range/Units 21:50 21:24 21:24 WBC (4.5-11.0) 10^3/uL RBC (3.5-6.1) 10^6/uL Hgb (12.0-16.0) g/dL Hct (36.0-48.0) % MCV (80.0-105.0) fl MCH (25.0-35.0) pg MCHC (31.0-37.0) g/dl RDW (11.5-14.5) % Plt Count (120.0-450.0) 10^3/uL MPV (7.0-11.0) fl Neut % (Auto) (50.0-68.0) % Lymph % (Auto) (22.0-35.0) % [place] % (Auto) (1.0-6.0) % Eos % (Auto) (1.5-5.0) % Baso % (Auto) (0.0-3.0) % Lymph # (Auto) (1.2-3.4) [place] # (Auto) (0.1-0.6) Eos # (Auto) (0.0-0.7) Baso # (Auto) (0.0-2.0) K/mm3 Absolute Neuts (auto) (1.4-6.5) Neutrophils % (Manual) (50.0-70.0) % Lymphocytes % (Manual) (22.0-35.0) % Monocytes % (Manual) (1.0-6.0) % Platelet Evaluation (NORMAL) pCO2 41 (35-45) mm/Hg pO2 223.0 H (80-100) mm/Hg HCO3 20.6 L (21-28) mmol/L ABG pH 7.31 L (7.35-7.45) ABG Total CO2 21.9 L (22-28) mmol.L ABG O2 Saturation 98.1 H (95-98) % ABG O2 Content 18.3 (15-23) ML/dl ABG Base Excess -5.4 L (-2.0-3.0) mmol/L ABG Hemoglobin 13.0 (11.7-17.4) g/dL ABG Carboxyhemoglobin 0.3 L (0.5-1.5) % POC ABG HHb (Measured) 1.9 (0-5) % ABG Methemoglobin 0.3 (0.0-3.0) % ABG O2 Capacity 18.7 (16-24) mL/dl ABG Potassium (3.6-5.2) mmol/L VBG pH (7.32-7.43) VBG pCO2 (40-60) VBG HCO3 (21-28) mmol/l VBG Total CO2 (22-28) mmol.L VBG O2 Sat (Calc) (40-65) % VBG Base Excess (0.0-2.0) mmol/L VBG Potassium (3.6-5.2) mmol/L Hgb O2 Saturation 97.4 (95.0-98.0) % Glucose (65-105) mg/dl Lactate (0.7-2.1) mmol/L FiO2 50.0 % Crit Value Called To Crit Value Called By Blood Gas Notified Time Sodium (132-148) mmol/L Potassium (3.6-5.0) mmol/L Chloride (98-107) mmol/L Carbon Dioxide (21-33) mmol/L Anion Gap (10-20) BUN (7-21) mg/dL Creatinine (0.7-1.2) mg/dl Est GFR ( Amer) Est GFR (Non-Af Amer) Random Glucose (70-110) mg/dL Serum Osmolality 310 H (272-300) mosm/kg Calcium (8.4-10.5) mg/dL Phosphorus 5.3 H (2.5-4.5) mg/dL Magnesium 2.2 (1.7-2.2) mg/dL Total Bilirubin (0.2-1.3) mg/dL AST (14-36) U/L ALT (7-56) U/L Alkaline Phosphatase (38-126) U/L Total Creatine Kinase (35-230) U/L CK-MB (CK-2) (0.0-3.6) ng/mL CK-MB (CK-2) % (2.5-3.0) % Troponin I ng/mL Total Protein (5.8-8.3) g/dL Albumin (3.0-4.8) g/dL Globulin gm/dL Albumin/Globulin Ratio (1.1-1.8) TSH 3rd Generation (0.46-4.68) mIU/mL Arterial Blood Potassium (3.6-5.2) mmol/L Venous Blood Potassium (3.6-5.2) mmol/L Urine Color (YELLOW) Urine Appearance (CLEAR) Urine pH (4.7-8.0) Ur Specific [place] (1.005-1.035) Urine Protein (<30 mg/dL) mg/dL Urine Glucose (UA) (NEGATIVE) mg/dL Urine Ketones (NEGATIVE) mg/dL Urine Blood (NEGATIVE) Urine Nitrate (NEGATIVE) Urine Bilirubin (NEGATIVE) Urine Urobilinogen (<1 E.U./dL) E.U./dL Ur Leukocyte Esterase (NEGATIVE) Nicole/uL Urine RBC (0-2) /hpf Urine WBC (0-6) /hpf Ur Epithelial Cells (0-5) /hpf Urine Bacteria (NONE) /hpf Salicylates (2.0-20.0) mg/dL Urine Opiates Screen (NEGATIVE) Urine Methadone Screen (NEGATIVE) Acetaminophen (10.0-20.0) ug/ml Ur Barbiturates Screen (NEGATIVE) Ur Phencyclidine Scrn (NEGATIVE) Ur Amphetamines Screen (NEGATIVE) U Benzodiazepines Scrn (NEGATIVE) U Oth Cocaine Metabols (NEGATIVE) U Cannabinoids Screen (NEGATIVE) Alcohol, Quantitative (0-10) mg/dL 10/04/18 10/04/18 10/04/18 Range/Units 21:24 21:24 21:24 WBC (4.5-11.0) 10^3/uL RBC (3.5-6.1) 10^6/uL Hgb (12.0-16.0) g/dL Hct (36.0-48.0) % MCV (80.0-105.0) fl MCH (25.0-35.0) pg MCHC (31.0-37.0) g/dl RDW (11.5-14.5) % Plt Count (120.0-450.0) 10^3/uL MPV (7.0-11.0) fl Neut % (Auto) (50.0-68.0) % Lymph % (Auto) (22.0-35.0) % [place] % (Auto) (1.0-6.0) % Eos % (Auto) (1.5-5.0) % Baso % (Auto) (0.0-3.0) % Lymph # (Auto) (1.2-3.4) [place] # (Auto) (0.1-0.6) Eos # (Auto) (0.0-0.7) Baso # (Auto) (0.0-2.0) K/mm3 Absolute Neuts (auto) (1.4-6.5) Neutrophils % (Manual) (50.0-70.0) % Lymphocytes % (Manual) (22.0-35.0) % Monocytes % (Manual) (1.0-6.0) % Platelet Evaluation (NORMAL) pCO2 (35-45) mm/Hg pO2 (80-100) mm/Hg HCO3 (21-28) mmol/L ABG pH (7.35-7.45) ABG Total CO2 (22-28) mmol.L ABG O2 Saturation (95-98) % ABG O2 Content (15-23) ML/dl ABG Base Excess (-2.0-3.0) mmol/L ABG Hemoglobin (11.7-17.4) g/dL ABG Carboxyhemoglobin (0.5-1.5) % POC ABG HHb (Measured) (0-5) % ABG Methemoglobin (0.0-3.0) % ABG O2 Capacity (16-24) mL/dl ABG Potassium (3.6-5.2) mmol/L VBG pH (7.32-7.43) VBG pCO2 (40-60) VBG HCO3 (21-28) mmol/l VBG Total CO2 (22-28) mmol.L VBG O2 Sat (Calc) (40-65) % VBG Base Excess (0.0-2.0) mmol/L VBG Potassium (3.6-5.2) mmol/L Hgb O2 Saturation (95.0-98.0) % Glucose (65-105) mg/dl Lactate (0.7-2.1) mmol/L FiO2 % Crit Value Called To Crit Value Called By Blood Gas Notified Time Sodium 137 (132-148) mmol/L Potassium 4.5 (3.6-5.0) mmol/L Chloride 101 (98-107) mmol/L Carbon Dioxide 19 L (21-33) mmol/L Anion Gap 22 H (10-20) BUN 23 H (7-21) mg/dL Creatinine 1.6 H (0.7-1.2) mg/dl Est GFR ( Amer) 39 Est GFR (Non-Af Amer) 32 Random Glucose 154 H (70-110) mg/dL Serum Osmolality (272-300) mosm/kg Calcium 8.9 (8.4-10.5) mg/dL Phosphorus (2.5-4.5) mg/dL Magnesium (1.7-2.2) mg/dL Total Bilirubin 0.3 (0.2-1.3) mg/dL AST 84 H (14-36) U/L ALT 23 (7-56) U/L Alkaline Phosphatase 54 (38-126) U/L Total Creatine Kinase 6523 H (35-230) U/L CK-MB (CK-2) 29.0 H (0.0-3.6) ng/mL CK-MB (CK-2) % 0.4 L (2.5-3.0) % Troponin I 0.08 D ng/mL Total Protein 7.3 (5.8-8.3) g/dL Albumin 4.3 (3.0-4.8) g/dL Globulin 3.0 gm/dL Albumin/Globulin Ratio 1.4 (1.1-1.8) TSH 3rd Generation (0.46-4.68) mIU/mL Arterial Blood Potassium (3.6-5.2) mmol/L Venous Blood Potassium (3.6-5.2) mmol/L Urine Color (YELLOW) Urine Appearance (CLEAR) Urine pH (4.7-8.0) Ur Specific [place] (1.005-1.035) Urine Protein (<30 mg/dL) mg/dL Urine Glucose (UA) (NEGATIVE) mg/dL Urine Ketones (NEGATIVE) mg/dL Urine Blood (NEGATIVE) Urine Nitrate (NEGATIVE) Urine Bilirubin (NEGATIVE) Urine Urobilinogen (<1 E.U./dL) E.U./dL Ur Leukocyte Esterase (NEGATIVE) Nicole/uL Urine RBC (0-2) /hpf Urine WBC (0-6) /hpf Ur Epithelial Cells (0-5) /hpf Urine Bacteria (NONE) /hpf Salicylates < 1 L (2.0-20.0) mg/dL Urine Opiates Screen (NEGATIVE) Urine Methadone Screen (NEGATIVE) Acetaminophen < 10.0 L (10.0-20.0) ug/ml Ur Barbiturates Screen (NEGATIVE) Ur Phencyclidine Scrn (NEGATIVE) Ur Amphetamines Screen (NEGATIVE) U Benzodiazepines Scrn (NEGATIVE) U Oth Cocaine Metabols (NEGATIVE) U Cannabinoids Screen (NEGATIVE) Alcohol, Quantitative 48 H (0-10) mg/dL 10/04/18 Range/Units 21:24 WBC 12.9 H (4.5-11.0) 10^3/uL RBC 4.17 (3.5-6.1) 10^6/uL Hgb 14.1 (12.0-16.0) g/dL Hct 41.8 (36.0-48.0) % MCV 100.2 (80.0-105.0) fl MCH 33.8 (25.0-35.0) pg MCHC 33.7 (31.0-37.0) g/dl RDW 12.1 (11.5-14.5) % Plt Count 178 (120.0-450.0) 10^3/uL MPV 9.1 (7.0-11.0) fl Neut % (Auto) 90.3 H (50.0-68.0) % Lymph % (Auto) 6.1 L (22.0-35.0) % [place] % (Auto) 3.5 (1.0-6.0) % Eos % (Auto) 0.0 L (1.5-5.0) % Baso % (Auto) 0.1 (0.0-3.0) % Lymph # (Auto) 0.8 L (1.2-3.4) [place] # (Auto) 0.5 (0.1-0.6) Eos # (Auto) 0.0 (0.0-0.7) Baso # (Auto) 0.01 (0.0-2.0) K/mm3 Absolute Neuts (auto) 11.64 H (1.4-6.5) Neutrophils % (Manual) 88 H (50.0-70.0) % Lymphocytes % (Manual) 6 L (22.0-35.0) % Monocytes % (Manual) 6 (1.0-6.0) % Platelet Evaluation Normal (NORMAL) pCO2 (35-45) mm/Hg pO2 (80-100) mm/Hg HCO3 (21-28) mmol/L ABG pH (7.35-7.45) ABG Total CO2 (22-28) mmol.L ABG O2 Saturation (95-98) % ABG O2 Content (15-23) ML/dl ABG Base Excess (-2.0-3.0) mmol/L ABG Hemoglobin (11.7-17.4) g/dL ABG Carboxyhemoglobin (0.5-1.5) % POC ABG HHb (Measured) (0-5) % ABG Methemoglobin (0.0-3.0) % ABG O2 Capacity (16-24) mL/dl ABG Potassium (3.6-5.2) mmol/L VBG pH (7.32-7.43) VBG pCO2 (40-60) VBG HCO3 (21-28) mmol/l VBG Total CO2 (22-28) mmol.L VBG O2 Sat (Calc) (40-65) % VBG Base Excess (0.0-2.0) mmol/L VBG Potassium (3.6-5.2) mmol/L Hgb O2 Saturation (95.0-98.0) % Glucose (65-105) mg/dl Lactate (0.7-2.1) mmol/L FiO2 % Crit Value Called To Crit Value Called By Blood Gas Notified Time Sodium (132-148) mmol/L Potassium (3.6-5.0) mmol/L Chloride (98-107) mmol/L Carbon Dioxide (21-33) mmol/L Anion Gap (10-20) BUN (7-21) mg/dL Creatinine (0.7-1.2) mg/dl Est GFR ( Amer) Est GFR (Non-Af Amer) Random Glucose (70-110) mg/dL Serum Osmolality (272-300) mosm/kg Calcium (8.4-10.5) mg/dL Phosphorus (2.5-4.5) mg/dL Magnesium (1.7-2.2) mg/dL Total Bilirubin (0.2-1.3) mg/dL AST (14-36) U/L ALT (7-56) U/L Alkaline Phosphatase (38-126) U/L Total Creatine Kinase (35-230) U/L CK-MB (CK-2) (0.0-3.6) ng/mL CK-MB (CK-2) % (2.5-3.0) % Troponin I ng/mL Total Protein (5.8-8.3) g/dL Albumin (3.0-4.8) g/dL Globulin gm/dL Albumin/Globulin Ratio (1.1-1.8) TSH 3rd Generation (0.46-4.68) mIU/mL Arterial Blood Potassium (3.6-5.2) mmol/L Venous Blood Potassium (3.6-5.2) mmol/L Urine Color (YELLOW) Urine Appearance (CLEAR) Urine pH (4.7-8.0) Ur Specific [place] (1.005-1.035) Urine Protein (<30 mg/dL) mg/dL Urine Glucose (UA) (NEGATIVE) mg/dL Urine Ketones (NEGATIVE) mg/dL Urine Blood (NEGATIVE) Urine Nitrate (NEGATIVE) Urine Bilirubin (NEGATIVE) Urine Urobilinogen (<1 E.U./dL) E.U./dL Ur Leukocyte Esterase (NEGATIVE) Nicole/uL Urine RBC (0-2) /hpf Urine WBC (0-6) /hpf Ur Epithelial Cells (0-5) /hpf Urine Bacteria (NONE) /hpf Salicylates (2.0-20.0) mg/dL Urine Opiates Screen (NEGATIVE) Urine Methadone Screen (NEGATIVE) Acetaminophen (10.0-20.0) ug/ml Ur Barbiturates Screen (NEGATIVE) Ur Phencyclidine Scrn (NEGATIVE) Ur Amphetamines Screen (NEGATIVE) U Benzodiazepines Scrn (NEGATIVE) U Oth Cocaine Metabols (NEGATIVE) U Cannabinoids Screen (NEGATIVE) Alcohol, Quantitative (0-10) mg/dL Laboratory Results - last 24 hr 10/04/18 10/04/18 10/04/18 21:24 21:24 21:24 WBC 12.9 H RBC 4.17 Hgb 14.1 Hct 41.8 MCV 100.2 MCH 33.8 MCHC 33.7 RDW 12.1 Plt Count 178 MPV 9.1 Neut % (Auto) 90.3 H Lymph % (Auto) 6.1 L [place] % (Auto) 3.5 Eos % (Auto) 0.0 L Baso % (Auto) 0.1 Lymph # (Auto) 0.8 L [place] # (Auto) 0.5 Eos # (Auto) 0.0 Baso # (Auto) 0.01 Absolute Neuts (auto) 11.64 H Neutrophils % (Manual) 88 H Lymphocytes % (Manual) 6 L Monocytes % (Manual) 6 Platelet Evaluation Normal pCO2 pO2 HCO3 ABG pH ABG Total CO2 ABG O2 Saturation ABG O2 Content ABG Base Excess ABG Hemoglobin ABG Carboxyhemoglobin POC ABG HHb (Measured) ABG Methemoglobin ABG O2 Capacity ABG Potassium VBG pH VBG pCO2 VBG HCO3 VBG Total CO2 VBG O2 Sat (Calc) VBG Base Excess VBG Potassium Hgb O2 Saturation Glucose Lactate FiO2 Crit Value Called To Crit Value Called By Blood Gas Notified Time Sodium 137 Potassium 4.5 Chloride 101 Carbon Dioxide 19 L Anion Gap 22 H BUN 23 H Creatinine 1.6 H Est GFR ( Amer) 39 Est GFR (Non-Af Amer) 32 Random Glucose 154 H Serum Osmolality Calcium 8.9 Phosphorus Magnesium Total Bilirubin 0.3 AST 84 H ALT 23 Alkaline Phosphatase 54 Total Creatine Kinase 6523 H CK-MB (CK-2) 29.0 H CK-MB (CK-2) % 0.4 L Troponin I 0.08 D Total Protein 7.3 Albumin 4.3 Globulin 3.0 Albumin/Globulin Ratio 1.4 TSH 3rd Generation Arterial Blood Potassium Venous Blood Potassium Urine Color Urine Appearance Urine pH Ur Specific [place] Urine Protein Urine Glucose (UA) Urine Ketones Urine Blood Urine Nitrate Urine Bilirubin Urine Urobilinogen Ur Leukocyte Esterase Urine RBC Urine WBC Ur Epithelial Cells Urine Bacteria Salicylates < 1 L Urine Opiates Screen Urine Methadone Screen Acetaminophen < 10.0 L Ur Barbiturates Screen Ur Phencyclidine Scrn Ur Amphetamines Screen U Benzodiazepines Scrn U Oth Cocaine Metabols U Cannabinoids Screen Alcohol, Quantitative 10/04/18 10/04/18 10/04/18 21:24 21:24 21:24 WBC RBC Hgb Hct MCV MCH MCHC RDW Plt Count MPV Neut % (Auto) Lymph % (Auto) [place] % (Auto) Eos % (Auto) Baso % (Auto) Lymph # (Auto) [place] # (Auto) Eos # (Auto) Baso # (Auto) Absolute Neuts (auto) Neutrophils % (Manual) Lymphocytes % (Manual) Monocytes % (Manual) Platelet Evaluation pCO2 pO2 HCO3 ABG pH ABG Total CO2 ABG O2 Saturation ABG O2 Content ABG Base Excess ABG Hemoglobin ABG Carboxyhemoglobin POC ABG HHb (Measured) ABG Methemoglobin ABG O2 Capacity ABG Potassium VBG pH VBG pCO2 VBG HCO3 VBG Total CO2 VBG O2 Sat (Calc) VBG Base Excess VBG Potassium Hgb O2 Saturation Glucose Lactate FiO2 Crit Value Called To Crit Value Called By Blood Gas Notified Time Sodium Potassium Chloride Carbon Dioxide Anion Gap BUN Creatinine Est GFR ( Amer) Est GFR (Non-Af Amer) Random Glucose Serum Osmolality 310 H Calcium Phosphorus 5.3 H Magnesium 2.2 Total Bilirubin AST ALT Alkaline Phosphatase Total Creatine Kinase CK-MB (CK-2) CK-MB (CK-2) % Troponin I Total Protein Albumin Globulin Albumin/Globulin Ratio TSH 3rd Generation Arterial Blood Potassium Venous Blood Potassium Urine Color Urine Appearance Urine pH Ur Specific [place] Urine Protein Urine Glucose (UA) Urine Ketones Urine Blood Urine Nitrate Urine Bilirubin Urine Urobilinogen Ur Leukocyte Esterase Urine RBC Urine WBC Ur Epithelial Cells Urine Bacteria Salicylates Urine Opiates Screen Urine Methadone Screen Acetaminophen Ur Barbiturates Screen Ur Phencyclidine Scrn Ur Amphetamines Screen U Benzodiazepines Scrn U Oth Cocaine Metabols U Cannabinoids Screen Alcohol, Quantitative 48 H 10/04/18 10/04/18 10/05/18 21:50 22:42 00:30 WBC RBC Hgb Hct MCV MCH MCHC RDW Plt Count MPV Neut % (Auto) Lymph % (Auto) [place] % (Auto) Eos % (Auto) Baso % (Auto) Lymph # (Auto) [place] # (Auto) Eos # (Auto) Baso # (Auto) Absolute Neuts (auto) Neutrophils % (Manual) Lymphocytes % (Manual) Monocytes % (Manual) Platelet Evaluation pCO2 41 pO2 223.0 H 51 HCO3 20.6 L ABG pH 7.31 L ABG Total CO2 21.9 L ABG O2 Saturation 98.1 H ABG O2 Content 18.3 ABG Base Excess -5.4 L ABG Hemoglobin 13.0 ABG Carboxyhemoglobin 0.3 L POC ABG HHb (Measured) 1.9 ABG Methemoglobin 0.3 ABG O2 Capacity 18.7 ABG Potassium VBG pH 7.17 L* VBG pCO2 54.0 VBG HCO3 19.7 L VBG Total CO2 21.4 L VBG O2 Sat (Calc) 83.5 H VBG Base Excess -9.2 L VBG Potassium 4.0 Hgb O2 Saturation 97.4 Glucose 130 H Lactate 5.7 H* FiO2 50.0 21.0 Crit Value Called To Omero cruz Crit Value Called By Blood Gas Notified Time 2305 Sodium 140.0 Potassium Chloride 104.0 Carbon Dioxide Anion Gap BUN Creatinine Est GFR ( Amer) Est GFR (Non-Af Amer) Random Glucose Serum Osmolality Calcium Phosphorus Magnesium Total Bilirubin AST ALT Alkaline Phosphatase Total Creatine Kinase CK-MB (CK-2) CK-MB (CK-2) % Troponin I Total Protein Albumin Globulin Albumin/Globulin Ratio TSH 3rd Generation Arterial Blood Potassium Venous Blood Potassium 4.0 Urine Color [place] Urine Appearance Sl cloudy Urine pH 6.5 Ur Specific [place] 1.020 Urine Protein 100 H Urine Glucose (UA) Negative Urine Ketones Negative Urine Blood Large H Urine Nitrate Negative Urine Bilirubin Negative Urine Urobilinogen 0.2 Ur Leukocyte Esterase Negative Urine RBC 1 - 3 H Urine WBC 0 - 2 Ur Epithelial Cells 3 - 4 Urine Bacteria Occ Salicylates Urine Opiates Screen Urine Methadone Screen Acetaminophen Ur Barbiturates Screen Ur Phencyclidine Scrn Ur Amphetamines Screen U Benzodiazepines Scrn U Oth Cocaine Metabols U Cannabinoids Screen Alcohol, Quantitative 10/05/18 10/05/18 10/05/18 00:30 01:50 04:55 WBC RBC Hgb Hct MCV MCH MCHC RDW Plt Count MPV Neut % (Auto) Lymph % (Auto) [place] % (Auto) Eos % (Auto) Baso % (Auto) Lymph # (Auto) [place] # (Auto) Eos # (Auto) Baso # (Auto) Absolute Neuts (auto) Neutrophils % (Manual) Lymphocytes % (Manual) Monocytes % (Manual) Platelet Evaluation pCO2 37 pO2 41 196.0 H HCO3 18.2 L ABG pH 7.30 L ABG Total CO2 19.3 L ABG O2 Saturation 98.5 H ABG O2 Content ABG Base Excess -7.5 L ABG Hemoglobin ABG Carboxyhemoglobin POC ABG HHb (Measured) ABG Methemoglobin ABG O2 Capacity ABG Potassium 4.0 VBG pH 7.16 L* VBG pCO2 64.0 H VBG HCO3 22.8 VBG Total CO2 24.8 VBG O2 Sat (Calc) 73.1 H VBG Base Excess -6.9 L VBG Potassium 3.9 Hgb O2 Saturation Glucose 138 H 127 H Lactate 5.6 H* 1.8 FiO2 21.0 40.0 Crit Value Called To Meli saenz rn ccu Crit Value Called By Alysa Blood Gas Notified Time 216 Sodium 140.0 138.0 Potassium Chloride 105.0 109.0 H Carbon Dioxide Anion Gap BUN Creatinine Est GFR ( Amer) Est GFR (Non-Af Amer) Random Glucose Serum Osmolality Calcium Phosphorus Magnesium Total Bilirubin AST ALT Alkaline Phosphatase Total Creatine Kinase CK-MB (CK-2) CK-MB (CK-2) % Troponin I Total Protein Albumin Globulin Albumin/Globulin Ratio TSH 3rd Generation Arterial Blood Potassium 4.0 Venous Blood Potassium 3.9 Urine Color Urine Appearance Urine pH Ur Specific [place] Urine Protein Urine Glucose (UA) Urine Ketones Urine Blood Urine Nitrate Urine Bilirubin Urine Urobilinogen Ur Leukocyte Esterase Urine RBC Urine WBC Ur Epithelial Cells Urine Bacteria Salicylates Urine Opiates Screen Negative Urine Methadone Screen Negative Acetaminophen Ur Barbiturates Screen Negative Ur Phencyclidine Scrn Negative Ur Amphetamines Screen Negative U Benzodiazepines Scrn Positive H U Oth Cocaine Metabols Negative U Cannabinoids Screen Negative Alcohol, Quantitative 10/05/18 10/05/18 10/05/18 06:30 06:30 06:30 WBC 15.2 H RBC 4.93 Hgb 16.6 H D Hct 50.1 H MCV 101.6 MCH 33.7 MCHC 33.1 RDW 12.2 Plt Count 186 MPV 9.3 Neut % (Auto) 77.8 H Lymph % (Auto) 7.3 L [place] % (Auto) 14.8 H Eos % (Auto) 0.0 L Baso % (Auto) 0.1 Lymph # (Auto) 1.1 L [place] # (Auto) 2.2 H Eos # (Auto) 0.0 Baso # (Auto) 0.01 Absolute Neuts (auto) 11.81 H Neutrophils % (Manual) Lymphocytes % (Manual) Monocytes % (Manual) Platelet Evaluation pCO2 pO2 HCO3 ABG pH ABG Total CO2 ABG O2 Saturation ABG O2 Content ABG Base Excess ABG Hemoglobin ABG Carboxyhemoglobin POC ABG HHb (Measured) ABG Methemoglobin ABG O2 Capacity ABG Potassium VBG pH VBG pCO2 VBG HCO3 VBG Total CO2 VBG O2 Sat (Calc) VBG Base Excess VBG Potassium Hgb O2 Saturation Glucose Lactate FiO2 Crit Value Called To Crit Value Called By Blood Gas Notified Time Sodium 142 Potassium 4.9 Chloride 110 H Carbon Dioxide 20 L Anion Gap 16 BUN 28 H Creatinine 1.2 Est GFR ( Amer) 54 Est GFR (Non-Af Amer) 45 Random Glucose 124 H Serum Osmolality Calcium 8.2 L Phosphorus 4.4 Magnesium 2.0 Total Bilirubin 0.4 AST 516 H D ALT 101 H Alkaline Phosphatase 63 Total Creatine Kinase CK-MB (CK-2) CK-MB (CK-2) % Troponin I 0.83 H* D Total Protein 6.8 Albumin 3.5 Globulin 3.3 Albumin/Globulin Ratio 1.1 TSH 3rd Generation 0.43 L Arterial Blood Potassium Venous Blood Potassium Urine Color Urine Appearance Urine pH Ur Specific [place] Urine Protein Urine Glucose (UA) Urine Ketones Urine Blood Urine Nitrate Urine Bilirubin Urine Urobilinogen Ur Leukocyte Esterase Urine RBC Urine WBC Ur Epithelial Cells Urine Bacteria Salicylates Urine Opiates Screen Urine Methadone Screen Acetaminophen Ur Barbiturates Screen Ur Phencyclidine Scrn Ur Amphetamines Screen U Benzodiazepines Scrn U Oth Cocaine Metabols U Cannabinoids Screen Alcohol, Quantitative 10/05/18 11:15 WBC RBC Hgb Hct MCV MCH MCHC RDW Plt Count MPV Neut % (Auto) Lymph % (Auto) [place] % (Auto) Eos % (Auto) Baso % (Auto) Lymph # (Auto) [place] # (Auto) Eos # (Auto) Baso # (Auto) Absolute Neuts (auto) Neutrophils % (Manual) Lymphocytes % (Manual) Monocytes % (Manual) Platelet Evaluation pCO2 pO2 HCO3 ABG pH ABG Total CO2 ABG O2 Saturation ABG O2 Content ABG Base Excess ABG Hemoglobin ABG Carboxyhemoglobin POC ABG HHb (Measured) ABG Methemoglobin ABG O2 Capacity ABG Potassium VBG pH VBG pCO2 VBG HCO3 VBG Total CO2 VBG O2 Sat (Calc) VBG Base Excess VBG Potassium Hgb O2 Saturation Glucose Lactate FiO2 Crit Value Called To Crit Value Called By Blood Gas Notified Time Sodium 141 Potassium 4.6 Chloride 111 H Carbon Dioxide 20 L Anion Gap 14 BUN 26 H Creatinine 1.1 Est GFR ( Amer) 60 Est GFR (Non-Af Amer) 49 Random Glucose 118 H Serum Osmolality Calcium 8.2 L Phosphorus Magnesium Total Bilirubin 0.3 AST 492 H ALT 99 H Alkaline Phosphatase 61 Total Creatine Kinase CK-MB (CK-2) CK-MB (CK-2) % Troponin I Total Protein 6.3 Albumin 3.4 Globulin 2.9 Albumin/Globulin Ratio 1.2 TSH 3rd Generation Arterial Blood Potassium Venous Blood Potassium Urine Color Urine Appearance Urine pH Ur Specific [place] Urine Protein Urine Glucose (UA) Urine Ketones Urine Blood Urine Nitrate Urine Bilirubin Urine Urobilinogen Ur Leukocyte Esterase Urine RBC Urine WBC Ur Epithelial Cells Urine Bacteria Salicylates Urine Opiates Screen Urine Methadone Screen Acetaminophen Ur Barbiturates Screen Ur Phencyclidine Scrn Ur Amphetamines Screen U Benzodiazepines Scrn U Oth Cocaine Metabols U Cannabinoids Screen Alcohol, Quantitative Radiology Impressions: Radiology Impressions Chest X-Ray 10/04/18 20:46 IMPRESSION: The endotracheal tube is at the level of the ezio and could be withdrawn 15-[address] 10/04/18 20:47 IMPRESSION: Normal CT of the Head. Chest X-Ray 10/05/18 07:00 IMPRESSION: No active disease. EKG/Cardiology Studies: Cardiology / EKG Studies 10/04/18 20:46 ELECTROCARDIOGRAM Stat Comment: Reason For Exam: arrythmia 10/05/18 EKG [ELECTROCARDIOGRAM] Routine Comment: Reason For Exam: elevated troponin Critical Care Progress Note - Nutrition Nutrition: Nutrition Category Date Time Status NPO Diet [DIET] Diets 10/05/18 Breakfast Ordered Assessment/Plan - Assessment and Plan (Free Text) Plan: Patient seen and examined on rounds with resident, agree with note with following additions/exceptions: Patient is 67yo female with PMhx Graves disease, overdose attempts, ?depression, presented with resp failure 2/2 BZD overdose Currently intubated, OFF sedation, awake alert, in NAD, following commands, subsequently extubated to 2LNC Labs, imaging, chart reviewed Pt with increased LFTs, no evidence of tylenol ingestion, will start NAC as protective measure Pt placed on one to one Psych consulted Poison control following the case Drug Overdose, BZD Graves disease Acute resp failure Abnormal LFTs Dehydration rule out depression disorder Recommend: - supp o2 as needed, duonebs PRN - NO ID issues - follow up cultures, UCx, BCx, check procal - IVF, NS - start NAC - monitor LFTs, CPK - obtain cardiology consult, repeat troponin - EKG - ECHO - psych eval, 1:1 obs - FS control - Monitor in MICU Critical care time 35 minutes
[2018-10-05 11:37] LABS: ALB/GLOB RATIO 1.2 (1.1-1.8); ALBUMIN 3.4 g/dL (3.0-4.8); CALCIUM 8.2 mg/dL (8.4-10.5)
[2018-10-05 12:44] LABS: TROPONIN I 0.69 ng/mL
[2018-10-05 15:11] LABS: CK MB% 0.4 % (2.5-3.0)
[2018-10-05] MEDS: ACETYLCYSTEINE IV ONE (16:41)
[2018-10-05] MEDS: WATER IV ONE (16:41)
[2018-10-05] MEDS: DEXTROSE 5% IV ONE (16:41)
--- NOTE | 2018-10-05 16:59 | CARD ---
APPROVED REPORT Date of service: 10/04/2018 EKG Measurement Heart [id number] CT [id number] <Conclusion> Sinus tachycardia Possible Left atrial enlargement Inferior infarct, age undetermined Anterior infarct, age undetermined Abnormal ECG
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
--- NOTE | 2018-10-05 22:40 | CARD ---
APPROVED REPORT Date of service: 10/05/2018 EKG Measurement Heart [id number] <Conclusion> Sinus tachycardia Low voltage QRS Possible Inferior infarct, age undetermined Cannot rule out Anteroseptal infarct, age undetermined NDSTT abnormalities Abnormal ECG
--- NOTE | 2018-10-05 23:42 | HP ---
DATE OF EXAM: 10/05/2018 HISTORY OF PRESENT ILLNESS: The patient is 67 years old, seen and examined. Daughter is by the bedside. The patient is confused and disoriented, unable to give any history. The patient is 67 years old, who was found by her boyfriend on kitchen floor with an empty bottle of Valium. Yesterday was her son's birthday who many, many years ago and she left a note on the fridge, fridge was open, that she cannot take it anymore, she want to end it. When boyfriend went to visit, he found her in this situation. She was very lethargic so he called ambulance and she was brought to emergency room. The patient was seen in my office 2 months ago when she was complaining of increasingly forgetful and increasingly anxious. I offered her to go to neurologist and see a psychiatrist. 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 She was able to multi task at a time, but lately she has not been feeling well according to her input prior to this event. PAST MEDICAL HISTORY: She does not have any significant past medical history except she has hyperthyroidism in the remote past and she was told she has Graves' disease, but according to the blood work which was done in office there was no evidence of hyperthyroidism. History of anxiety disorder she was seeing psychiatrist who gave her diazepam. ALLERGIES: SHE IS NOT ALLERGIC TO ANY MEDICATION. PAST SURGICAL HISTORY: There is no significant surgical history. SOCIAL HISTORY: She was living alone, but boyfriend used to visit her. According to daughter, she did try suicide before. She does have history of alcohol abuse and opiate abuse. FAMILY HISTORY: Significant for mom and sister having Alzheimer's and dad and aunt had lung cancer. PHYSICAL EXAMINATION GENERAL: The patient is lethargic. She opens her eyes on verbal commands. Upon arrival she was intubated, but when I saw the patient she was already extubated. VITAL SIGNS: She is afebrile. Pulse 116, respiration 22 and blood pressure 119/45. LUNGS: Bilateral fair airflow. No rhonchi or crackle. HEART: S1 and S2, audible. ABDOMEN: Soft and nontender. No rebound. No guarding. NEUROLOGIC: She is lethargic and sleepy, but arousable. Incoherent does not answer appropriately. LABORATORY DATA: WBC is 15.2, hemoglobin 16, hematocrit 50 and platelet 196. Chemistry; sodium 141, potassium 4.6, chloride 111, CO2 of 20, BUN 26, creatinine 1.1, blood sugar 118, CPK 25,780, AST 492 and troponin 0.69. Urinalysis shows large blood and 1-3 rbc. Urine drug screen positive for barbiturates, benzodiazepines. drug screen positive only for benzodiazepines, negative for barbiturates. CT scan of the head is unremarkable. IMPRESSION 1. Valium overdose. 2. History of anxiety disorder. 3. Suicidal attempt. 4. Status post respiratory failure. PLAN: We will continue the patient on IV fluids. We will start feeding until she is more alert. Continue her on Protonix. Consult Dr. Person. The patient is on one-to-one. We will follow up her electrolytes, CBC and CMP in a.m. Jamir Nunez MD
[2018-10-06 05:59] LABS: BASO # 0.01 K/mm3 (0.0-2.0); BASO % 0.1 % (0.0-3.0); EOS % 0.1 % (1.5-5.0); LYMPH # 1.3 (1.2-3.4); LYMPH % 16.3 % (22.0-35.0); MEAN CELL VOLUME 101.6 fl (80.0-105.0); MEAN CORPUSCULAR HEMOGLOBIN 32.9 pg (25.0-35.0); MEAN CORPUSCULAR HGB CONC 32.4 g/dl (31.0-37.0); MEAN PLATELET VOLUME 9.4 fl (7.0-11.0); MONO # 0.7 (0.1-0.6); MONO % 8.8 % (1.0-6.0); RBC 4.34 10^6/uL (3.5-6.1); RED CELL DISTRIBUTION WIDTH 12.1 % (11.5-14.5); WHITE BLOOD COUNT 7.9 10^3/uL (4.5-11.0)
[2018-10-06] MEDS: WATER IV ONE (06:04)
[2018-10-06] MEDS: DEXTROSE 5% IV ONE (06:04)
[2018-10-06] MEDS: ACETYLCYSTEINE IV ONE (06:04)
[2018-10-06] MEDS: Sodium Chloride 0.9% 1,000 ML IV SCH ×2 (06:08→13:45)
[2018-10-06 06:12] LABS: HEMOGLOBIN 14.3 g/dL (12.0-16.0)
[2018-10-06 06:28] LABS: ARTERIAL BLOOD GAS HCO3 18.8 mmol/L (21-28); ARTERIAL BLOOD GAS O2 SAT 98.2 % (95-98); ARTERIAL BLOOD GAS PCO2 34 mm/Hg (35-45); ARTERIAL BLOOD GAS PH 7.35 (7.35-7.45); ARTERIAL BLOOD GAS TCO2 19.8 mmol.L (22-28)
[2018-10-06 06:58] LABS: ALBUMIN 2.9 g/dL (3.0-4.8); ALT/SGPT 100 U/L (7-56); AST/SGOT 310 U/L (14-36); BLOOD UREA NITROGEN 11 mg/dL (7-21); GFR NON-AFRICAN AMERICAN > 60
[2018-10-06 08:35] LABS: CK MB% 0.4 % (2.5-3.0); CK-MB 50.7 ng/mL (0.0-3.6)
--- NOTE | 2018-10-06 09:20 | RAD ---
Date of service: 10/06/2018 HISTORY: intubated COMPARISON: No prior. FINDINGS: LUNGS: No active pulmonary disease. PLEURA: No significant pleural effusion identified, no pneumothorax apparent. CARDIOVASCULAR: Mild aortic calcification Normal cardiac size. No pulmonary vascular congestion. OSSEOUS STRUCTURES: No significant abnormalities. VISUALIZED UPPER ABDOMEN: Normal. OTHER FINDINGS: None. IMPRESSION: No active disease.
[2018-10-06] MEDS: Silver Sulfadiazine 1% Cream (25 gm) TP SCH ×2 (10:15→18:27)
--- NOTE | 2018-10-06 10:26 | CP.CCUPN ---
<Yakov Herman - Last Filed: 10/06/18 10:32> CCU Subjective - Physician Review Events Since Last Encounter (Free Text): 10/06/18 10:23 pt has greatly improved Subjective (Free Text): 10/05/18 10:24 Pt seen and examined this morning in ICU. Pt extubated, able to move all 4 extremities 10/06/18 10:23 pt seen and examined in the ICU CCU Objective - Vital Signs / Intake & Output Vital Signs (Last 4 hours): Vital Signs Pulse Resp BP Pulse Ox 10/06/18 09:00 105 H 22 95 10/06/18 08:01 105 H 13 126/70 99 10/06/18 08:00 105 H 21 87 L 10/06/18 07:00 102 H 23 100 Intake and Output (Last 8hrs): Intake & Output 10/05/18 10/06/18 10/06/18 22:59 06:59 14:59 Intake Total 3105 2520 Output Total 0 1610 Balance 3105 910 Intake: IV 2925 2520 NSS 1800 acetadote 1125 2520 Oral 180 Output: Urine 1610 Urethral (Key) 1610 Stool 0 - Physical Exam Head: Positive for: Atraumatic, Normocephalic Pupils: Positive for: PERRL Extroacular Muscles: Positive for: EOMI Mouth: Positive for: Moist Mucous Membranes Respiratory/Chest: Positive for: Clear to Auscultation, Good Air Exchange, Accessory Muscle Use. Negative for: Respiratory Distress, Wheezes Cardiovascular: Positive for: Normal S1, S2, Peripheal Pulses Present, Tachycardic Abdomen: Positive for: Normal Bowel Sounds. Negative for: Tenderness, Distention Skin: Positive for: Warm, Dry, Normal Color - Medications Active Medications: Active Medications Generic Name Dose Route Start Last Admin Trade Name Freq PRN Reason Stop Dose Admin Clonazepam 0.5 mg 10/06/18 09:25 Klonopin PO BID PRN Anxiety Protocol Heparin Sodium (Porcine) 5,000 units 10/05/18 06:00 10/06/18 06:09 Heparin SC 5,000 units Q8 LI Administration Protocol Sodium Chloride 1,000 mls @ 150 mls/hr 10/04/18 23:45 10/06/18 06:08 Sodium Chloride 0.9% IV 150 mls/hr .[id number] LI Administration Pantoprazole Sodium 40 mg 10/05/18 10:00 10/06/18 09:17 Protonix Inj IVP 40 mg DAILY LI Administration Silver Sulfadiazine 0 gm 10/06/18 10:00 10/06/18 10:15 Silvadene 1% 25 Gm TP 25 gm BID LI Administration - Patient Studies Lab Studies: Microbiology Studies 10/04/18 22:30 Blood Culture - Preliminary Blood-Venous NO GROWTH AFTER 24 HOURS 10/04/18 22:15 Blood Culture - Preliminary Blood-Venous NO GROWTH AFTER 24 HOURS Lab Studies 10/06/18 10/06/18 10/06/18 Range/Units 06:20 05:20 05:20 WBC (4.5-11.0) 10^3/uL RBC (3.5-6.1) 10^6/uL Hgb (12.0-16.0) g/dL Hct (36.0-48.0) % MCV (80.0-105.0) fl MCH (25.0-35.0) pg MCHC (31.0-37.0) g/dl RDW (11.5-14.5) % Plt Count (120.0-450.0) 10^3/uL MPV (7.0-11.0) fl Neut % (Auto) (50.0-68.0) % Lymph % (Auto) (22.0-35.0) % [place] % (Auto) (1.0-6.0) % Eos % (Auto) (1.5-5.0) % Baso % (Auto) (0.0-3.0) % Lymph # (Auto) (1.2-3.4) [place] # (Auto) (0.1-0.6) Eos # (Auto) (0.0-0.7) Baso # (Auto) (0.0-2.0) K/mm3 Absolute Neuts (auto) (1.4-6.5) pCO2 34 L (35-45) mm/Hg pO2 107.0 H (80-100) mm/Hg HCO3 18.8 L (21-28) mmol/L ABG pH 7.35 (7.35-7.45) ABG Total CO2 19.8 L (22-28) mmol.L ABG O2 Saturation 98.2 H (95-98) % ABG Base Excess -6.0 L (-2.0-3.0) mmol/L ABG Potassium 3.9 (3.6-5.2) mmol/L Glucose 101 (65-105) mg/dl Lactate 0.9 (0.7-2.1) mmol/L FiO2 28.0 % Sodium 138.0 141 (132-148) mmol/L Potassium 4.3 (3.6-5.0) mmol/L Chloride 113.0 H 113 H (98-107) mmol/L Carbon Dioxide 22 (21-33) mmol/L Anion Gap 11 (10-20) BUN 11 (7-21) mg/dL Creatinine 0.8 (0.7-1.2) mg/dl Est GFR ( Amer) > 60 Est GFR (Non-Af Amer) > 60 Random Glucose 107 (70-110) mg/dL Calcium 8.0 L (8.4-10.5) mg/dL Total Bilirubin 0.3 (0.2-1.3) mg/dL AST 310 H D (14-36) U/L ALT 100 H (7-56) U/L Alkaline Phosphatase 51 (38-126) U/L Total Creatine Kinase 21782 H (35-230) U/L CK-MB (CK-2) 50.7 H (0.0-3.6) ng/mL CK-MB (CK-2) % 0.4 L (2.5-3.0) % Troponin I ng/mL Total Protein 5.7 L (5.8-8.3) g/dL Albumin 2.9 L (3.0-4.8) g/dL Globulin 2.9 gm/dL Albumin/Globulin Ratio 1.0 L (1.1-1.8) Procalcitonin (0.19-0.49) NG/ML Free T4 (0.78-2.19) ng/dL Free T3 pg/mL (2.77-5.27) pg/mL Arterial Blood Potassium 3.9 (3.6-5.2) mmol/L 10/06/18 10/05/18 10/05/18 Range/Units 05:20 11:15 11:00 WBC 7.9 D (4.5-11.0) 10^3/uL RBC 4.34 (3.5-6.1) 10^6/uL Hgb 14.3 D (12.0-16.0) g/dL Hct 44.1 (36.0-48.0) % MCV 101.6 (80.0-105.0) fl MCH 32.9 (25.0-35.0) pg MCHC 32.4 (31.0-37.0) g/dl RDW 12.1 (11.5-14.5) % Plt Count 157 (120.0-450.0) 10^3/uL MPV 9.4 (7.0-11.0) fl Neut % (Auto) 74.7 H (50.0-68.0) % Lymph % (Auto) 16.3 L (22.0-35.0) % [place] % (Auto) 8.8 H (1.0-6.0) % Eos % (Auto) 0.1 L (1.5-5.0) % Baso % (Auto) 0.1 (0.0-3.0) % Lymph # (Auto) 1.3 (1.2-3.4) [place] # (Auto) 0.7 H (0.1-0.6) Eos # (Auto) 0.0 (0.0-0.7) Baso # (Auto) 0.01 (0.0-2.0) K/mm3 Absolute Neuts (auto) 5.88 (1.4-6.5) pCO2 (35-45) mm/Hg pO2 (80-100) mm/Hg HCO3 (21-28) mmol/L ABG pH (7.35-7.45) ABG Total CO2 (22-28) mmol.L ABG O2 Saturation (95-98) % ABG Base Excess (-2.0-3.0) mmol/L ABG Potassium (3.6-5.2) mmol/L Glucose (65-105) mg/dl Lactate (0.7-2.1) mmol/L FiO2 % Sodium 141 (132-148) mmol/L Potassium 4.6 (3.6-5.0) mmol/L Chloride 111 H (98-107) mmol/L Carbon Dioxide 20 L (21-33) mmol/L Anion Gap 14 (10-20) BUN 26 H (7-21) mg/dL Creatinine 1.1 (0.7-1.2) mg/dl Est GFR ( Amer) 60 Est GFR (Non-Af Amer) 49 Random Glucose 118 H (70-110) mg/dL Calcium 8.2 L (8.4-10.5) mg/dL Total Bilirubin 0.3 (0.2-1.3) mg/dL AST 492 H (14-36) U/L ALT 99 H (7-56) U/L Alkaline Phosphatase 61 (38-126) U/L Total Creatine Kinase 28097 H (35-230) U/L CK-MB (CK-2) 113.0 H (0.0-3.6) ng/mL CK-MB (CK-2) % 0.4 L (2.5-3.0) % Troponin I 0.69 H* ng/mL Total Protein 6.3 (5.8-8.3) g/dL Albumin 3.4 (3.0-4.8) g/dL Globulin 2.9 gm/dL Albumin/Globulin Ratio 1.2 (1.1-1.8) Procalcitonin (0.19-0.49) NG/ML Free T4 0.93 (0.78-2.19) ng/dL Free T3 pg/mL (2.77-5.27) pg/mL Arterial Blood Potassium (3.6-5.2) mmol/L 10/05/18 10/04/18 Range/Units 11:00 21:24 WBC (4.5-11.0) 10^3/uL RBC (3.5-6.1) 10^6/uL Hgb (12.0-16.0) g/dL Hct (36.0-48.0) % MCV (80.0-105.0) fl MCH (25.0-35.0) pg MCHC (31.0-37.0) g/dl RDW (11.5-14.5) % Plt Count (120.0-450.0) 10^3/uL MPV (7.0-11.0) fl Neut % (Auto) (50.0-68.0) % Lymph % (Auto) (22.0-35.0) % [place] % (Auto) (1.0-6.0) % Eos % (Auto) (1.5-5.0) % Baso % (Auto) (0.0-3.0) % Lymph # (Auto) (1.2-3.4) [place] # (Auto) (0.1-0.6) Eos # (Auto) (0.0-0.7) Baso # (Auto) (0.0-2.0) K/mm3 Absolute Neuts (auto) (1.4-6.5) pCO2 (35-45) mm/Hg pO2 (80-100) mm/Hg HCO3 (21-28) mmol/L ABG pH (7.35-7.45) ABG Total CO2 (22-28) mmol.L ABG O2 Saturation (95-98) % ABG Base Excess (-2.0-3.0) mmol/L ABG Potassium (3.6-5.2) mmol/L Glucose (65-105) mg/dl Lactate (0.7-2.1) mmol/L FiO2 % Sodium (132-148) mmol/L Potassium (3.6-5.0) mmol/L Chloride (98-107) mmol/L Carbon Dioxide (21-33) mmol/L Anion Gap (10-20) BUN (7-21) mg/dL Creatinine (0.7-1.2) mg/dl Est GFR ( Amer) Est GFR (Non-Af Amer) Random Glucose (70-110) mg/dL Calcium (8.4-10.5) mg/dL Total Bilirubin (0.2-1.3) mg/dL AST (14-36) U/L ALT (7-56) U/L Alkaline Phosphatase (38-126) U/L Total Creatine Kinase (35-230) U/L CK-MB (CK-2) (0.0-3.6) ng/mL CK-MB (CK-2) % (2.5-3.0) % Troponin I ng/mL Total Protein (5.8-8.3) g/dL Albumin (3.0-4.8) g/dL Globulin gm/dL Albumin/Globulin Ratio (1.1-1.8) Procalcitonin 0.10 L (0.19-0.49) NG/ML Free T4 (0.78-2.19) ng/dL Free T3 pg/mL 5.25 (2.77-5.27) pg/mL Arterial Blood Potassium (3.6-5.2) mmol/L Laboratory Results - last 24 hr 10/04/18 10/05/18 10/05/18 21:24 11:00 11:00 WBC RBC Hgb Hct MCV MCH MCHC RDW Plt Count MPV Neut % (Auto) Lymph % (Auto) [place] % (Auto) Eos % (Auto) Baso % (Auto) Lymph # (Auto) [place] # (Auto) Eos # (Auto) Baso # (Auto) Absolute Neuts (auto) pCO2 pO2 HCO3 ABG pH ABG Total CO2 ABG O2 Saturation ABG Base Excess ABG Potassium Glucose Lactate FiO2 Sodium Potassium Chloride Carbon Dioxide Anion Gap BUN Creatinine Est GFR ( Amer) Est GFR (Non-Af Amer) Random Glucose Calcium Total Bilirubin AST ALT Alkaline Phosphatase Total Creatine Kinase CK-MB (CK-2) CK-MB (CK-2) % Troponin I Total Protein Albumin Globulin Albumin/Globulin Ratio Procalcitonin 0.10 L Free T4 0.93 Free T3 pg/mL 5.25 Arterial Blood Potassium 10/05/18 10/06/18 10/06/18 11:15 05:20 05:20 WBC 7.9 D RBC 4.34 Hgb 14.3 D Hct 44.1 MCV 101.6 MCH 32.9 MCHC 32.4 RDW 12.1 Plt Count 157 MPV 9.4 Neut % (Auto) 74.7 H Lymph % (Auto) 16.3 L [place] % (Auto) 8.8 H Eos % (Auto) 0.1 L Baso % (Auto) 0.1 Lymph # (Auto) 1.3 [place] # (Auto) 0.7 H Eos # (Auto) 0.0 Baso # (Auto) 0.01 Absolute Neuts (auto) 5.88 pCO2 pO2 HCO3 ABG pH ABG Total CO2 ABG O2 Saturation ABG Base Excess ABG Potassium Glucose Lactate FiO2 Sodium 141 141 Potassium 4.6 4.3 Chloride 111 H 113 H Carbon Dioxide 20 L 22 Anion Gap 14 11 BUN 26 H 11 Creatinine 1.1 0.8 Est GFR ( Amer) 60 > 60 Est GFR (Non-Af Amer) 49 > 60 Random Glucose 118 H 107 Calcium 8.2 L 8.0 L Total Bilirubin 0.3 0.3 AST 492 H 310 H D ALT 99 H 100 H Alkaline Phosphatase 61 51 Total Creatine Kinase 87085 H CK-MB (CK-2) 113.0 H CK-MB (CK-2) % 0.4 L Troponin I 0.69 H* Total Protein 6.3 5.7 L Albumin 3.4 2.9 L Globulin 2.9 2.9 Albumin/Globulin Ratio 1.2 1.0 L Procalcitonin Free T4 Free T3 pg/mL Arterial Blood Potassium 10/06/18 10/06/18 05:20 06:20 WBC RBC Hgb Hct MCV MCH MCHC RDW Plt Count MPV Neut % (Auto) Lymph % (Auto) [place] % (Auto) Eos % (Auto) Baso % (Auto) Lymph # (Auto) [place] # (Auto) Eos # (Auto) Baso # (Auto) Absolute Neuts (auto) pCO2 34 L pO2 107.0 H HCO3 18.8 L ABG pH 7.35 ABG Total CO2 19.8 L ABG O2 Saturation 98.2 H ABG Base Excess -6.0 L ABG Potassium 3.9 Glucose 101 Lactate 0.9 FiO2 28.0 Sodium 138.0 Potassium Chloride 113.0 H Carbon Dioxide Anion Gap BUN Creatinine Est GFR ( Amer) Est GFR (Non-Af Amer) Random Glucose Calcium Total Bilirubin AST ALT Alkaline Phosphatase Total Creatine Kinase 84816 H CK-MB (CK-2) 50.7 H CK-MB (CK-2) % 0.4 L Troponin I Total Protein Albumin Globulin Albumin/Globulin Ratio Procalcitonin Free T4 Free T3 pg/mL Arterial Blood Potassium 3.9 Radiology Impressions: Radiology Impressions Chest X-Ray 10/06/18 07:00 IMPRESSION: No active disease. Critical Care Progress Note - Nutrition Nutrition: Nutrition Category Date Time Status Dysphagia/Modified Consistency Diet [DIET] Diets 10/06/18 Breakfast Ordered Assessment/Plan - Assessment and Plan (Free Text) Assessment: Pt is a 67 yo female with a PMH of Grave's Disease, bezo abuse, previous overdose who was found unresponsive by EMS with an empty medication bottle near her, pt was intubated, but has since been extubated. Plan: Neuro - overdose, 1:1 sitter - psyc consulted - continue to monitor neuro status Cardio - Tachycardic - HD stable, Maintain MAP>65 - EKG shows no ST or T wave changes - Troponin 0.08, 0.83, 0.69 Pulm - Maintain SpO2 >92% GI - Case discussed with Poison Control, advised to continue current management - AST/ALT improving - NAC protocol - PPX /Nephro - Rhabdo is improving - BUN/Cr improving - KRIS Endo - Maintain euglycemia Heme/Onc - H/H stable - Hgb 14.3 ID - Afebrile, no leukocytosis - blood cultures NGTD - procal 0.10 Dispo: transfer pt to Tele today Pt seen, examined, assessment and plan discussed with Dr Kaylee Herman PGY1 - Date & Time Date: 10/06/18 Time: 07:00 <Aron Page - Last Filed: 10/06/18 13:00> CCU Objective - Vital Signs / Intake & Output Vital Signs (Last 4 hours): Vital Signs Pulse Resp Pulse Ox 10/06/18 09:00 105 H 22 95 Intake and Output (Last 8hrs): Intake & Output 10/05/18 10/06/18 10/06/18 22:59 06:59 14:59 Intake Total 3105 2520 Output Total 0 1610 Balance 3105 910 Intake: IV 2925 2520 NSS 1800 acetadote 1125 2520 Oral 180 Output: Urine 1610 Urethral (Key) 1610 Stool 0 - Medications Active Medications: Active Medications Generic Name Dose Route Start Last Admin Trade Name Freq PRN Reason Stop Dose Admin Clonazepam 0.5 mg 10/06/18 09:25 Klonopin PO BID PRN Anxiety Protocol Heparin Sodium (Porcine) 5,000 units 10/05/18 06:00 10/06/18 06:09 Heparin SC 5,000 units Q8 LI Administration Protocol Sodium Chloride 1,000 mls @ 150 mls/hr 10/04/18 23:45 10/06/18 06:08 Sodium Chloride 0.9% IV 150 mls/hr .Q6H40M LI Administration Pantoprazole Sodium 40 mg 10/05/18 10:00 10/06/18 09:17 Protonix Inj IVP 40 mg DAILY LI Administration Silver Sulfadiazine 0 gm 10/06/18 10:00 10/06/18 10:15 Silvadene 1% 25 Gm TP 25 gm BID LI Administration - Patient Studies Lab Studies: Microbiology Studies 10/05/18 01:15 MRSA Culture (Admit) - Final Nose MRSA NOT DETECTED 10/04/18 22:30 Blood Culture - Preliminary Blood-Venous NO GROWTH AFTER 24 HOURS 10/04/18 22:15 Blood Culture - Preliminary Blood-Venous NO GROWTH AFTER 24 HOURS Lab Studies 10/06/18 10/06/18 10/06/18 Range/Units 06:20 05:20 05:20 WBC (4.5-11.0) 10^3/uL RBC (3.5-6.1) 10^6/uL Hgb (12.0-16.0) g/dL Hct (36.0-48.0) % MCV (80.0-105.0) fl MCH (25.0-35.0) pg MCHC (31.0-37.0) g/dl RDW (11.5-14.5) % Plt Count (120.0-450.0) 10^3/uL MPV (7.0-11.0) fl Neut % (Auto) (50.0-68.0) % Lymph % (Auto) (22.0-35.0) % [place] % (Auto) (1.0-6.0) % Eos % (Auto) (1.5-5.0) % Baso % (Auto) (0.0-3.0) % Lymph # (Auto) (1.2-3.4) [place] # (Auto) (0.1-0.6) Eos # (Auto) (0.0-0.7) Baso # (Auto) (0.0-2.0) K/mm3 Absolute Neuts (auto) (1.4-6.5) pCO2 34 L (35-45) mm/Hg pO2 107.0 H (80-100) mm/Hg HCO3 18.8 L (21-28) mmol/L ABG pH 7.35 (7.35-7.45) ABG Total CO2 19.8 L (22-28) mmol.L ABG O2 Saturation 98.2 H (95-98) % ABG Base Excess -6.0 L (-2.0-3.0) mmol/L ABG Potassium 3.9 (3.6-5.2) mmol/L Glucose 101 (65-105) mg/dl Lactate 0.9 (0.7-2.1) mmol/L FiO2 28.0 % Sodium 138.0 141 (132-148) mmol/L Potassium 4.3 (3.6-5.0) mmol/L Chloride 113.0 H 113 H (98-107) mmol/L Carbon Dioxide 22 (21-33) mmol/L Anion Gap 11 (10-20) BUN 11 (7-21) mg/dL Creatinine 0.8 (0.7-1.2) mg/dl Est GFR ( Amer) > 60 Est GFR (Non-Af Amer) > 60 Random Glucose 107 (70-110) mg/dL Calcium 8.0 L (8.4-10.5) mg/dL Total Bilirubin 0.3 (0.2-1.3) mg/dL AST 310 H D (14-36) U/L ALT 100 H (7-56) U/L Alkaline Phosphatase 51 (38-126) U/L Total Creatine Kinase 43325 H (35-230) U/L CK-MB (CK-2) 50.7 H (0.0-3.6) ng/mL CK-MB (CK-2) % 0.4 L (2.5-3.0) % Troponin I ng/mL Total Protein 5.7 L (5.8-8.3) g/dL Albumin 2.9 L (3.0-4.8) g/dL Globulin 2.9 gm/dL Albumin/Globulin Ratio 1.0 L (1.1-1.8) Procalcitonin (0.19-0.49) NG/ML Free T4 (0.78-2.19) ng/dL Free T3 pg/mL (2.77-5.27) pg/mL Arterial Blood Potassium 3.9 (3.6-5.2) mmol/L 10/06/18 10/05/18 10/05/18 Range/Units 05:20 11:15 11:00 WBC 7.9 D (4.5-11.0) 10^3/uL RBC 4.34 (3.5-6.1) 10^6/uL Hgb 14.3 D (12.0-16.0) g/dL Hct 44.1 (36.0-48.0) % MCV 101.6 (80.0-105.0) fl MCH 32.9 (25.0-35.0) pg MCHC 32.4 (31.0-37.0) g/dl RDW 12.1 (11.5-14.5) % Plt Count 157 (120.0-450.0) 10^3/uL MPV 9.4 (7.0-11.0) fl Neut % (Auto) 74.7 H (50.0-68.0) % Lymph % (Auto) 16.3 L (22.0-35.0) % [place] % (Auto) 8.8 H (1.0-6.0) % Eos % (Auto) 0.1 L (1.5-5.0) % Baso % (Auto) 0.1 (0.0-3.0) % Lymph # (Auto) 1.3 (1.2-3.4) [place] # (Auto) 0.7 H (0.1-0.6) Eos # (Auto) 0.0 (0.0-0.7) Baso # (Auto) 0.01 (0.0-2.0) K/mm3 Absolute Neuts (auto) 5.88 (1.4-6.5) pCO2 (35-45) mm/Hg pO2 (80-100) mm/Hg HCO3 (21-28) mmol/L ABG pH (7.35-7.45) ABG Total CO2 (22-28) mmol.L ABG O2 Saturation (95-98) % ABG Base Excess (-2.0-3.0) mmol/L ABG Potassium (3.6-5.2) mmol/L Glucose (65-105) mg/dl Lactate (0.7-2.1) mmol/L FiO2 % Sodium 141 (132-148) mmol/L Potassium 4.6 (3.6-5.0) mmol/L Chloride 111 H (98-107) mmol/L Carbon Dioxide 20 L (21-33) mmol/L Anion Gap 14 (10-20) BUN 26 H (7-21) mg/dL Creatinine 1.1 (0.7-1.2) mg/dl Est GFR ( Amer) 60 Est GFR (Non-Af Amer) 49 Random Glucose 118 H (70-110) mg/dL Calcium 8.2 L (8.4-10.5) mg/dL Total Bilirubin 0.3 (0.2-1.3) mg/dL AST 492 H (14-36) U/L ALT 99 H (7-56) U/L Alkaline Phosphatase 61 (38-126) U/L Total Creatine Kinase 82357 H (35-230) U/L CK-MB (CK-2) 113.0 H (0.0-3.6) ng/mL CK-MB (CK-2) % 0.4 L (2.5-3.0) % Troponin I 0.69 H* ng/mL Total Protein 6.3 (5.8-8.3) g/dL Albumin 3.4 (3.0-4.8) g/dL Globulin 2.9 gm/dL Albumin/Globulin Ratio 1.2 (1.1-1.8) Procalcitonin (0.19-0.49) NG/ML Free T4 0.93 (0.78-2.19) ng/dL Free T3 pg/mL (2.77-5.27) pg/mL Arterial Blood Potassium (3.6-5.2) mmol/L 10/05/18 10/04/18 Range/Units 11:00 21:24 WBC (4.5-11.0) 10^3/uL RBC (3.5-6.1) 10^6/uL Hgb (12.0-16.0) g/dL Hct (36.0-48.0) % MCV (80.0-105.0) fl MCH (25.0-35.0) pg MCHC (31.0-37.0) g/dl RDW (11.5-14.5) % Plt Count (120.0-450.0) 10^3/uL MPV (7.0-11.0) fl Neut % (Auto) (50.0-68.0) % Lymph % (Auto) (22.0-35.0) % [place] % (Auto) (1.0-6.0) % Eos % (Auto) (1.5-5.0) % Baso % (Auto) (0.0-3.0) % Lymph # (Auto) (1.2-3.4) [place] # (Auto) (0.1-0.6) Eos # (Auto) (0.0-0.7) Baso # (Auto) (0.0-2.0) K/mm3 Absolute Neuts (auto) (1.4-6.5) pCO2 (35-45) mm/Hg pO2 (80-100) mm/Hg HCO3 (21-28) mmol/L ABG pH (7.35-7.45) ABG Total CO2 (22-28) mmol.L ABG O2 Saturation (95-98) % ABG Base Excess (-2.0-3.0) mmol/L ABG Potassium (3.6-5.2) mmol/L Glucose (65-105) mg/dl Lactate (0.7-2.1) mmol/L FiO2 % Sodium (132-148) mmol/L Potassium (3.6-5.0) mmol/L Chloride (98-107) mmol/L Carbon Dioxide (21-33) mmol/L Anion Gap (10-20) BUN (7-21) mg/dL Creatinine (0.7-1.2) mg/dl Est GFR ( Amer) Est GFR (Non-Af Amer) Random Glucose (70-110) mg/dL Calcium (8.4-10.5) mg/dL Total Bilirubin (0.2-1.3) mg/dL AST (14-36) U/L ALT (7-56) U/L Alkaline Phosphatase (38-126) U/L Total Creatine Kinase (35-230) U/L CK-MB (CK-2) (0.0-3.6) ng/mL CK-MB (CK-2) % (2.5-3.0) % Troponin I ng/mL Total Protein (5.8-8.3) g/dL Albumin (3.0-4.8) g/dL Globulin gm/dL Albumin/Globulin Ratio (1.1-1.8) Procalcitonin 0.10 L (0.19-0.49) NG/ML Free T4 (0.78-2.19) ng/dL Free T3 pg/mL 5.25 (2.77-5.27) pg/mL Arterial Blood Potassium (3.6-5.2) mmol/L Laboratory Results - last 24 hr 10/04/18 10/05/18 10/05/18 21:24 11:00 11:00 WBC RBC Hgb Hct MCV MCH MCHC RDW Plt Count MPV Neut % (Auto) Lymph % (Auto) [place] % (Auto) Eos % (Auto) Baso % (Auto) Lymph # (Auto) [place] # (Auto) Eos # (Auto) Baso # (Auto) Absolute Neuts (auto) pCO2 pO2 HCO3 ABG pH ABG Total CO2 ABG O2 Saturation ABG Base Excess ABG Potassium Glucose Lactate FiO2 Sodium Potassium Chloride Carbon Dioxide Anion Gap BUN Creatinine Est GFR ( Amer) Est GFR (Non-Af Amer) Random Glucose Calcium Total Bilirubin AST ALT Alkaline Phosphatase Total Creatine Kinase CK-MB (CK-2) CK-MB (CK-2) % Troponin I Total Protein Albumin Globulin Albumin/Globulin Ratio Procalcitonin 0.10 L Free T4 0.93 Free T3 pg/mL 5.25 Arterial Blood Potassium 10/05/18 10/06/18 10/06/18 11:15 05:20 05:20 WBC 7.9 D RBC 4.34 Hgb 14.3 D Hct 44.1 MCV 101.6 MCH 32.9 MCHC 32.4 RDW 12.1 Plt Count 157 MPV 9.4 Neut % (Auto) 74.7 H Lymph % (Auto) 16.3 L [place] % (Auto) 8.8 H Eos % (Auto) 0.1 L Baso % (Auto) 0.1 Lymph # (Auto) 1.3 [place] # (Auto) 0.7 H Eos # (Auto) 0.0 Baso # (Auto) 0.01 Absolute Neuts (auto) 5.88 pCO2 pO2 HCO3 ABG pH ABG Total CO2 ABG O2 Saturation ABG Base Excess ABG Potassium Glucose Lactate FiO2 Sodium 141 141 Potassium 4.6 4.3 Chloride 111 H 113 H Carbon Dioxide 20 L 22 Anion Gap 14 11 BUN 26 H 11 Creatinine 1.1 0.8 Est GFR ( Amer) 60 > 60 Est GFR (Non-Af Amer) 49 > 60 Random Glucose 118 H 107 Calcium 8.2 L 8.0 L Total Bilirubin 0.3 0.3 AST 492 H 310 H D ALT 99 H 100 H Alkaline Phosphatase 61 51 Total Creatine Kinase 48813 H CK-MB (CK-2) 113.0 H CK-MB (CK-2) % 0.4 L Troponin I 0.69 H* Total Protein 6.3 5.7 L Albumin 3.4 2.9 L Globulin 2.9 2.9 Albumin/Globulin Ratio 1.2 1.0 L Procalcitonin Free T4 Free T3 pg/mL Arterial Blood Potassium 10/06/18 10/06/18 05:20 06:20 WBC RBC Hgb Hct MCV MCH MCHC RDW Plt Count MPV Neut % (Auto) Lymph % (Auto) [place] % (Auto) Eos % (Auto) Baso % (Auto) Lymph # (Auto) [place] # (Auto) Eos # (Auto) Baso # (Auto) Absolute Neuts (auto) pCO2 34 L pO2 107.0 H HCO3 18.8 L ABG pH 7.35 ABG Total CO2 19.8 L ABG O2 Saturation 98.2 H ABG Base Excess -6.0 L ABG Potassium 3.9 Glucose 101 Lactate 0.9 FiO2 28.0 Sodium 138.0 Potassium Chloride 113.0 H Carbon Dioxide Anion Gap BUN Creatinine Est GFR ( Amer) Est GFR (Non-Af Amer) Random Glucose Calcium Total Bilirubin AST ALT Alkaline Phosphatase Total Creatine Kinase 44052 H CK-MB (CK-2) 50.7 H CK-MB (CK-2) % 0.4 L Troponin I Total Protein Albumin Globulin Albumin/Globulin Ratio Procalcitonin Free T4 Free T3 pg/mL Arterial Blood Potassium 3.9 Radiology Impressions: Radiology Impressions Chest X-Ray 10/06/18 07:00 IMPRESSION: No active disease. Critical Care Progress Note - Nutrition Nutrition: Nutrition Category Date Time Status Dysphagia/Modified Consistency Diet [DIET] Diets 10/06/18 Breakfast Ordered Assessment/Plan - Assessment and Plan (Free Text) Plan: Patient seen and examined on rounds with resident, agree with note with following additions/exceptions: Patient is 67yo female with PMhx Graves disease, overdose attempts, ?depression, presented with resp failure 2/2 BZD overdose, intubated. Yesterday extubated to 2LNC Psych consulted, pt evaluated by psych Labs, imaging, chart reviewed Pt with increased LFTs, no evidence of tylenol ingestion, given NAC, with improvement of LFTs Pt placed on one to one CPK downtrending, on IVF Drug Overdose, BZD Graves disease Acute resp failure Abnormal LFTs Dehydration rule out depression disorder Rhabdo Recommend: - supp o2 as needed, duonebs PRN - NO ID issues - follow up cultures, UCx, BCx, check procal - IVF, NS 150cc/hr - DC Key - monitor LFTs, CPK - EKG - ECHO - psych eval, 1:1 obs - FS control - stable, transfer to remote tele
--- NOTE | 2018-10-06 19:57 | PN ---
DATE: 10/06/2018 SUBJECTIVE: The patient is a 67-year-old, seen and examined, sitting in chair, and states she feels very sad. She lost her son 20 years ago, his birthday was 2 days ago and she states nobody care for me. My daughter did not call me and she did not feel supported. She felt very sad and lonely. She states she did not try to kill herself; however, she wanted to have a good sleep and get rid of this negative thoughts and feeling and depression. She is denying that she had suicidal attempt. PHYSICAL EXAMINATION: VITAL SIGNS: She is afebrile, pulse 117, respirations 23, and blood pressure 140/96. LUNGS: Bilateral fair airflow. No rhonchi or crackle. HEART: S1 and S2 audible. ABDOMEN: Soft and nontender. No rebound. No guarding. NEUROLOGIC: The patient is awake and alert, able to communicate. LABORATORY DATA: WBC 7.9, hemoglobin 14.3, hematocrit 44.1, and platelet 157. Chemistry; sodium 141, potassium 4.3, chloride 113, CO2 of 22, BUN 11, creatinine 0.8, and blood sugar of 107. CPK is 13,116 and MB is 50.7. Blood cultures are negative. ASSESSMENT: 1. Suicidal attempt, as per the patient she was depressed though. 2. History of Graves' disease, but recently she was checked in office, no evidence of hypothyroidism. 3. Complain of increasing forgetfulness. PLAN: We will continue the patient on IV fluids. She is on DVT prophylaxis. She is on Klonopin. We will give her Fioricet p.r.n. for headache. Awaiting Psych input and I will request for neurological evaluation for the patient's memory problem. Jamir Nunez MD
--- NOTE | 2018-10-06 23:12 | CON ---
DATE: 10/06/2018 HISTORY OF PRESENT ILLNESS: This is a 67-year-old white female with the past medical history of hyperthyroidism, and anxiety and came to the hospital with confusion and disorientation and found by the boyfriend on the kitchen floor with an empty bottle of Valium, called to evaluate the patient. PAST MEDICAL HISTORY: As above. ALLERGIES: NO KNOWN DRUG ALLERGIES. SOCIAL HISTORY: According to the daughter, did try to commit suicide and also lives alone. PHYSICAL EXAMINATION HEENT: Normocephalic and atraumatic. NECK: Supple. NEURO: Alert, awake, oriented x3, no aphasia. Cranial nerve II to XII were tested. Pupils reactive. EOM intact. Visual field full. No facial asymmetry. Tongue midline. Motor examination; moves all the extremities equally. Tone normal. Deep tendon reflexes 1+. Both plantars are downgoing. Sensory appears intact. Cerebellar gait deferred. IMPRESSION AND PLAN: Altered mental status; encephalopathy, toxic, metabolic possibly due to Valium overdose; anxiety disorder. CAT scan of the head was done which was unremarkable. Continue present management. We will follow up. Miguel Angel Elaine MD
[2018-10-07] MEDS: Sodium Chloride 0.9% 1,000 ML IV SCH ×3 (04:45→16:17)
[2018-10-07 07:38] LABS: BASO # 0.01 K/mm3 (0.0-2.0); BASO % 0.2 % (0.0-3.0); EOS # 0.1 (0.0-0.7); EOS % 0.9 % (1.5-5.0); LYMPH # 1.4 (1.2-3.4); LYMPH % 24.3 % (22.0-35.0); MEAN CELL VOLUME 102.2 fl (80.0-105.0); MEAN CORPUSCULAR HEMOGLOBIN 33.1 pg (25.0-35.0); MEAN CORPUSCULAR HGB CONC 32.4 g/dl (31.0-37.0); MEAN PLATELET VOLUME 9.3 fl (7.0-11.0); MONO # 0.4 (0.1-0.6); MONO % 6.6 % (1.0-6.0); RBC 3.23 10^6/uL (3.5-6.1); RED CELL DISTRIBUTION WIDTH 11.9 % (11.5-14.5); WHITE BLOOD COUNT 5.6 10^3/uL (4.5-11.0)
[2018-10-07 08:08] LABS: ALBUMIN 2.7 g/dL (3.0-4.8); ALT/SGPT 132 U/L (7-56); AST/SGOT 447 U/L (14-36); BLOOD UREA NITROGEN 5 mg/dL (7-21); CALCIUM 7.9 mg/dL (8.4-10.5); GFR NON-AFRICAN AMERICAN > 60
[2018-10-07] MEDS: Silver Sulfadiazine 1% Cream (25 gm) TP SCH ×2 (09:37→18:06)
[2018-10-07 10:34] LABS: CK MB% 0.1 % (2.5-3.0); CK-MB 16.7 ng/mL (0.0-3.6)
[2018-10-07 13:04] LABS: HEMOGLOBIN 10.7 g/dL (12.0-16.0)
[2018-10-07] MEDS: Apap-Butalbital-Caffeine 325-50-40mg Tab PO PRN ×2 (15:03→21:03)
[2018-10-07] MEDS: Tobramycin/Dexamethasone (Tobradex) Opth Sol (2.5 ml) OU SCH ×2 (16:16→18:03)
--- NOTE | 2018-10-07 20:55 | CON ---
DATE OF CONSULTATION: 10/07/2018 HISTORY OF PRESENT ILLNESS: The patient is a 67-year-old female with a history of major depressive disorder and anxiety disorder, who Psychiatry is following on medical floor after she overdosed on Valium as a likely suicide attempt. I met with the patient yesterday and again today and she continues to deny that she was trying to kill herself, though she does have a history of a similar suicide attempt around this time five years ago on the anniversary of her son's and/or birthday. The patient required ICU. The patient was admitted to the ICU after she accidentally took too many Valium according to the patient. At this time, the patient reports that she plans to see Dr. Ojeda after she is medically cleared. However, she adamantly refuses to sign into the involuntary unit at [facility] and indicates that she prefers to be screened for involuntary commitment indicating that she is not a danger to herself or others. She is not hallucinating. She is coherent. She is oriented. She communicates needs, although she appears anxious. There have been no major behavioral issues, threatening behaviors, or active aggression. Focus and organization are improved since yesterday. Labs and vitals were reviewed. IMPRESSION: Major depressive disorder, severe, as well as anxiety disorder, likely suicide attempt, though the patient at this time denies regardless of her most accidental overdoses do not require ICU admission. PLAN: This provider discussed with nursing and with the patient at bedside this morning. Once the patient is medically cleared, [facility] screening should be called to evaluate for involuntary commitment. If [facility] screeners find that she does not meet criteria, then she is psychiatrically cleared. However, at this time, she may not be discharged once she is medically cleared, as this health underwriter and Dr. Oneal strongly recommend further psychiatric evaluation and observation for her own safety. Mary Merino MD
[2018-10-08] MEDS: Apap-Butalbital-Caffeine 325-50-40mg Tab PO PRN ×2 (05:54→18:55)
[2018-10-08 07:55] LABS: BASO # 0.02 K/mm3 (0.0-2.0); BASO % 0.5 % (0.0-3.0); EOS % 0.7 % (1.5-5.0); LYMPH # 1.4 (1.2-3.4); LYMPH % 30.4 % (22.0-35.0); MEAN CELL VOLUME 100.7 fl (80.0-105.0); MEAN CORPUSCULAR HEMOGLOBIN 32.7 pg (25.0-35.0); MEAN CORPUSCULAR HGB CONC 32.5 g/dl (31.0-37.0); MONO # 0.3 (0.1-0.6); MONO % 7.4 % (1.0-6.0); RBC 3.06 10^6/uL (3.5-6.1); RED CELL DISTRIBUTION WIDTH 11.7 % (11.5-14.5); WHITE BLOOD COUNT 4.4 10^3/uL (4.5-11.0)
[2018-10-08 08:13] LABS: ALB/GLOB RATIO 1.1 (1.1-1.8); ALBUMIN 2.7 g/dL (3.0-4.8); ALT/SGPT 130 U/L (7-56); AST/SGOT 348 U/L (14-36); BLOOD UREA NITROGEN 5 mg/dL (7-21); CALCIUM 7.8 mg/dL (8.4-10.5); GFR NON-AFRICAN AMERICAN > 60
[2018-10-08] MEDS: Tobramycin/Dexamethasone (Tobradex) Opth Sol (2.5 ml) OU SCH ×3 (09:03→23:43)
[2018-10-08] MEDS: Silver Sulfadiazine 1% Cream (25 gm) TP SCH ×2 (09:04→19:00)
[2018-10-08 10:14] LABS: CK-MB 4.7 ng/mL (0.0-3.6)
--- NOTE | 2018-10-08 16:08 | PN ---
DATE: 10/08/2018 SUBJECTIVE: The patient is 67 years old, seen and examined. She is fully awake, alert, oriented, communicative, and sitting appropriately. Eating and tolerating. Communicating very well. Has some eye irritation symptoms from the drops that was recommended. PHYSICAL EXAMINATION: VITAL SIGNS: She is afebrile, pulse 94, respirations 20, blood pressure 125/74. LUNGS: Bilateral fair airflow. No rhonchi or crackle. HEART: S1, S2 audible. ABDOMEN: Soft, nontender. No rebound. No guarding. NEUROLOGIC: The patient is awake and alert, able to communicate. EXTREMITIES: Bilateral legs, no edema. LABORATORY EXAMINATION: WBC is 4.4, hemoglobin 10, hematocrit 30.8, platelets 133. Chemistry: Sodium 142, potassium 3.5, chloride 113, CO2 of 25, BUN 5, creatinine 0.6, blood sugar of 57-85, AST 348, ALT 130, CPK 13,221. Urine tox positive for benzodiazepine. ASSESSMENT AND PLAN: 1. Status post suicidal attempt, although the patient is denying. She states she feels very sad on her disease nobody came to console her, and so she just wanted to sleep that is why she took a couple of Valium; however, she is still on one-to-one. 2. Intermittent headaches. The patient states she takes Tylenol too frequently. 3. Recent memory issue with trouble recalling peoples' name and sometimes she forgets puts things away and cannot find them. She is being evaluated by Neurology for early dementia. 4. Hypokalemia that is being supplemented. The patient is will discontinue the GI evaluation, we will order for abdominal sonogram. Followup LFT and I will order for hepatitis profile also. Jamir Nunez MD
--- NOTE | 2018-10-08 16:30 | US ---
Date of service: 10/08/2018 HISTORY: ABNORMAL lft COMPARISON: None. TECHNIQUE: Grayscale imaging was performed. FINDINGS: LIVER: Measures 12.7 cm. There is diffuse increased echogenicity of the liver parenchyma. No mass. No intrahepatic bile duct dilatation. GALLBLADDER: There are no gallstones, wall thickening or pericholecystic fluid. The sonographic Curtis's sign is negative. COMMON BILE DUCT: Measures 5.3 mm. No stones. No dilatation. PANCREAS: Unremarkable as visualized. No mass. No ductal dilatation. RIGHT KIDNEY: Measures 9.3cm. Normal echogenicity. No calculus, mass, or hydronephrosis. LEFT KIDNEY: Measures 10.0cm. Normal echogenicity. No calculus, mass, or hydronephrosis. There is a 3.8 x 3.5 x 3.7 cm simple cyst in the interpolar region. SPLEEN: Normal in size and contour. No mass. AORTA: No aneurysmal dilatation. IVC: Unremarkable. OTHER FINDINGS: None. IMPRESSION: Diffuse increased echogenicity in the liver may reflect hepatic steatosis however parenchymal infectious/ inflammatory etiologies cannot be entirely excluded. Clinical and laboratory correlation is advised. No cholelithiasis or biliary dilatation.
[2018-10-08] MEDS: Sodium Chloride 0.9% 1,000 ML IV SCH ×2 (17:25→22:56)
--- NOTE | 2018-10-08 20:07 | CON ---
DATE: 10/08/2018 HISTORY OF PRESENT ILLNESS: The patient is a 67-year-old female with history of major depressive disorder, anxiety disorder who Psychiatry is following up on the medical floor while she is being treated status post overdose on Valium. I met with the patient on 10/06/2018, 10/07/2018 and again at bedside today. The patient continues to deny that she was trying to kill herself though and does have a history of similar suicide attempt 5 years ago around this time as it coincided with the time of son's . The patient claims that she just took too much Valium without thinking about it and she was not keeping track. Nonetheless, she required treatment in the ICU and was barely breathing when her boyfriend found her and this was serendipitous since he is not usually there at that time. The patient adamantly refuses to sign into the voluntary unit at [place] indicating that she had a terrible experience during her last admission there and given treatment by her doctor at that time. The patient reports consistently that she rather be seen by [facility] and would take continuous and occasionally involuntarily committed. The patient consistently denies suicidal thoughts, she is coherent. She has multiple complaints about her family members and other stressors in her life, feels her children are not paying enough attention to her. She has a difficult time taking care of her mother. The patient is not working any longer and all of this is contributing to her low mood in addition to the of her son many years ago. She claims to be future oriented. She reports that she is planning to see Dr. Chong upon discharge and is interested in pursuing different types of medication management with him; however, she differs on recommendations by this provider. Her thought process can be rambling, over inclusive, and tangential, has need to be redirected; however, she is not overtly disorganized or delusional. Her insight and judgment are fair. IMPRESSION: Major depressive disorder, situational with anxiety disorder; rule out suicide attempt making it an unintentional overdose, although most accidental benzodiazepine overdoses do not require intensive care unit admission. RECOMMENDATIONS: Consistent with prior recommendations, once the patient is medically cleared [facility] should be called to have a screener evaluate the patient for involuntary commitment. If the [facility] screener does not determine that she meets the criteria for involuntary commitment the patient is then psychiatrically cleared and may be discharged. However, at this time the patient is not psychiatrically cleared and requires one-to-one as this continuity writer and Dr. Oneal strongly recommend further psychiatric observation for her own safety. Mary Merino MD
--- NOTE | 2018-10-08 22:23 | CON ---
DATE: 10/08/2018 REASON FOR CONSULTATION: Abnormal liver function tests. HISTORY OF PRESENT ILLNESS: This 67-year-old patient with a history of chronic headache, was taking multiple doses of Tylenol for her headache, admitted to the hospital following drug overdosage. She was found on the kitchen floor with the empty bottle of Valium. The patient with history of anxiety and the patient in the past admitted with drug overdosage also. The patient was found to have elevated liver enzymes this admission and GI consult was requested to evaluate. The patient denies having had any liver problems. She was concerned about the medications she was taking for her headache. The patient denies history of . Denies any abdominal pain. PAST MEDICAL HISTORY: Other past medical history is significant as above, history of Graves disease in the past. Blood work done in the past in the primary physician's office and also in the hospital suggest no evidence of hyperthyroidism. ALLERGIES: SHE IS NOT ALLERGIC TO ANY MEDICATION. PAST SURGICAL HISTORY: Denies any surgical history. FAMILY HISTORY: Negative for any liver problem as far as she remembers. SOCIAL HISTORY: Positive for social alcohol. Denies smoking. The patient said her earlier age and she had difficult period in her early stages of her life to bring up 3 kids children, of which she said one of them is a physician and another one is a cobbler mckay. PHYSICAL EXAMINATION: GENERAL: The patient is lying on the bed, not in acute distress. VITAL SIGNS: Temperature is 98.6, pulse 94, respirations 20, and blood pressure 125/74. HEENT: Atraumatic and anicteric. NECK: Supple. HEART: S1 and S2 heard. LUNGS: Bilateral air entry present. ABDOMEN: Soft. There was no tenderness. EXTREMITIES: No cyanosis or clubbing. NEUROLOGIC: Alert and oriented. Moves all the extremities. The patient is on one-to-one observation now. LABORATORY DATA: Hemoglobin 10.8, hematocrit 30.8, WBC 4.4, and platelets 133. Chemistry shows mainly transaminases elevation. The patient's AST was 492 on 10/05/2018, now it is 348, is slightly downward trend. ALT is 99 and it is stable at 130. Her CPK is significantly elevated at 25,000 when she came in, now it is only 13,000. Review of the lab did not reveal any baseline hepatitis profile or sonogram on exam. IMPRESSION AND PLAN: Abnormal liver function tests, mainly transaminases and the patient did have significantly elevated CPK. Most likely, the transaminases elevation is secondary to the rhabdomyolysis rather than hepatic. However, the patient did give history of taking Tylenol for her headache. Other comorbidities include anxiety, questionable history of hyperthyroidism, history of EtOH use in the past, would recommend: 1. Baseline ultrasound scan of the abdomen. 2. Hepatitis profile. 3. LDH level. We will continue to closely follow up her care and suggest further management based on the clinical course. Davy Pope MD
[2018-10-09] MEDS: Sodium Chloride 0.9% 1,000 ML IV SCH ×2 (05:51→13:18)
[2018-10-09 07:17] LABS: BASO # 0.01 K/mm3 (0.0-2.0); BASO % 0.2 % (0.0-3.0); EOS # 0.1 (0.0-0.7); EOS % 1.6 % (1.5-5.0); HEMOGLOBIN 10.2 g/dL (12.0-16.0); LYMPH # 1.3 (1.2-3.4); LYMPH % 24.9 % (22.0-35.0); MEAN CELL VOLUME 98.4 fl (80.0-105.0); MEAN CORPUSCULAR HEMOGLOBIN 33.1 pg (25.0-35.0); MEAN CORPUSCULAR HGB CONC 33.7 g/dl (31.0-37.0); MEAN PLATELET VOLUME 8.6 fl (7.0-11.0); MONO # 0.4 (0.1-0.6); MONO % 7.3 % (1.0-6.0); RBC 3.08 10^6/uL (3.5-6.1); RED CELL DISTRIBUTION WIDTH 11.9 % (11.5-14.5); WHITE BLOOD COUNT 5.1 10^3/uL (4.5-11.0)
[2018-10-09 07:36] LABS: ALB/GLOB RATIO 1.1 (1.1-1.8); ALBUMIN 2.7 g/dL (3.0-4.8); AST/SGOT 212 U/L (14-36); BLOOD UREA NITROGEN 5 mg/dL (7-21); GFR NON-AFRICAN AMERICAN > 60
[2018-10-09 07:37] LABS: ALT/SGPT 111 U/L (7-56); CALCIUM 7.7 mg/dL (8.4-10.5)
[2018-10-09 07:55] LABS: HEPATITIS B SURFACE AG Negative (NEGATIVE)
[2018-10-09 08:01] LABS: HEPATITIS A IGM NEGATIVE (NEGATIVE); HEPATITIS B CORE AB NEGATIVE (NEGATIVE)
[2018-10-09 08:13] LABS: HEPATITIS C ANTIBODY NEGATIVE (NEGATIVE)
[2018-10-09] MEDS: Apap-Butalbital-Caffeine 325-50-40mg Tab PO PRN (08:28)
--- NOTE | 2018-10-09 08:43 | PN ---
DATE: 10/07/2018 SUBJECTIVE: The patient is a 67-year-old, seen and examined, much more alert, eating and tolerating, drinking fluids, complaining of the left eye discomfort, states she is bored and she wanted to get out of here. She is not willing to go to psych unit; however, she want to go to involuntary unit in [facility], awaiting evaluation. PHYSICAL EXAMINATION: GENERAL: On examination today, she is awake and alert, able to communicate. VITAL SIGNS: She is afebrile, pulse 96, respirations 18, and blood pressure 136/77. LUNGS: Bilateral fair airflow, no rhonchi or crackles. HEART: S1 and S2 audible. ABDOMEN: Soft and nontender. No rebound, no guarding. NEUROLOGIC: She is awake and alert, able to communicate. LABORATORY DATA: WBC 5.6, hemoglobin 10.7, hematocrit 33, and platelets 134. Chemistry: Sodium 141, potassium 3.7, chloride 110, CO2 of 25, BUN 5, creatinine 0.6, blood sugar of 80. Her CPK is 18,260. MB is 16.7. Urine tox is positive for benzodiazepine and alcohol of 48. ASSESSMENT AND PLAN: 1. Status post suicidal attempt, status post overdose of benzodiazepines. 2. History of depression. 3. History of gastritis. 4. Rhabdomyolysis. PLAN: Currently, the patient is on heparin. Her kidney function is fine. I will change it to Lovenox 30 daily. Encourage ambulation, out of bed to chair, change her Protonix to p.o. Continue IV fluids. Awaiting evaluation by [facility]. The patient will follow up her CBC, CMP, and CPK in the morning and get physical therapy evaluation and we might be able to discontinue her telemetry. If the patient is accepted in [facility], she can be transferred tomorrow after I follow up CPK level. Jamir Nunez MD
--- NOTE | 2018-10-09 08:51 | CON ---
DATE: 10/06/2018 HISTORY OF PRESENT ILLNESS: The patient is a 67-year-old female with a history of major depressive disorder, anxiety disorder, prior suicide attempts approximately 5 years ago, which led to a psychiatric admission to [facility]. The patient is being medically treated in the ICU after she overdosed on Valium on the anniversary of her son's suicide, October 04, five years ago. She was seen by Dr. Oneal yesterday, who said that the patient was at high risk for killing herself, and Dr. Oneal also spoke with the patient's daughter who felt that presentation was secondary to a suicide attempt as her prior suicide attempt was around this time as well. I met with the patient at bedside and she is oriented to current circumstances, location, month and year and she is aware that she overdosed on Valium; however, indicate that this was not a suicide attempt, but she does not want to go to sleep and she wanted to forget about October 04. She is a little disoriented and losing train of thought and rambles and needs to be redirected when I asked her questions and at times she could be irrelevant. She is adamant and she does not want to sign into the psychiatric unit and just wants to be evaluated by [facility] for involuntary commitment, if this should be a recommendation. The patient reports that she just kept taking Valium and she was not aware how many she took. She just want to sleep the day away so that when she woke up it was October 05. The patient reports multiple stressors around this time indicating she is out of a 15-year relationship, this is the anniversary of her son's reported suicide which occurred maybe 20 years ago on October 04. The patient also reports that her son-in-law does not allow her to see her 2 and 5-year-old grandchildren because of the patient's worsening memory and focus, which the patient fears that this is beginning stages of Alzheimer's. The patient reports that she has been depressed; however, she is reluctant to admit that she is currently depressed and that she is not on antidepressants at this time, indicates that she was started on Aricept by her transit mix operator, Dr. Nunez for reported complaints of memory disorganization. As mentioned, the patient rambles and her mental status does not appear to have fully cleared, though she is clearly not hallucinating. As her insight and judgment are poor, this provider strongly recommend that she would be screened by [facility] for involuntary commitment should she refuses to sign in voluntarily for her treatment on the psychiatric unit after she is medically cleared by medical team. Vital signs and labs were reviewed. The patient is not on any current psychiatric medications. IMPRESSION: Severe major depressive disorder, likely status post suicide attempt by overdose and resolving delirium due to ingestion of benzo. RECOMMENDATIONS: The patient either requires a voluntary or involuntary commitment once she is medically cleared. Psychiatry will continue to follow up and try to engage her trust; however, she appears to be very reluctant to be treated at [facility] due to an unpleasant experience with Dr. Perez approximately 5 years ago. In the meantime, I will provide p.r.n. doses of Klonopin, very low doses to help with anxiety as the Valium is metabolized out of her system. Next followup will be on 10/09/[address] Merino. Mary Merino MD
[2018-10-09] MEDS: Tobramycin/Dexamethasone (Tobradex) Opth Sol (2.5 ml) OU SCH ×3 (09:00→18:06)
--- NOTE | 2018-10-09 09:22 | CP.PCM.PN ---
<Yany Denson - Last Filed: 10/09/18 17:52> Subjective - Date & Time of Evaluation Date of Evaluation: 10/09/18 Time of Evaluation: : - Subjective Subjective: Yany Denson, PGY2, GI Progress Note for Dr Pope: Patient seen and examined at bedside. No acute events overnight. Patient report loose BM yesterday evening. Denies abdominal pain, nausea, vomiting, jaundice, fevers, chills. Reports that she is still feeling depressed and has been talking to the psychiatrist Dr Person regarding it. Objective - Vital Signs/Intake and Output Vital Signs (last 24 hours): Temp Pulse Resp BP Pulse Ox 99.8 F H 87 20 145/84 95 10/09/18 06:00 10/09/18 06:00 10/09/18 06:00 10/09/18 06:00 10/09/18 06:00 - Medications Medications: Current Medications Acetaminophen/Butalbital/Caffeine (Fioricet) 1 tab PO Q4H PRN PRN Reason: Headache Last Admin: 10/09/18 08:28 Dose: 1 tab Clonazepam (Klonopin) 0.5 mg PO BID PRN; Protocol PRN Reason: Anxiety Last Admin: 10/08/18 23:08 Dose: 0.5 mg Sodium Chloride (Sodium Chloride 0.9%) 1,000 mls @ 150 mls/hr IV .Q6H40M [facility] Last Admin: 10/09/18 05:51 Dose: 150 mls/hr Ibuprofen (Motrin Tab) 600 mg PO Q6H PRN PRN Reason: pain Last Admin: 10/07/18 04:44 Dose: 600 mg Silver Sulfadiazine (Silvadene 1% 25 Gm) 0 gm TP BID [facility] Last Admin: 10/08/18 19:00 Dose: 1 gm Tobramycin/Dexamethasone (Tobradex Opht Susp) 1 ml OU TID [facility] Last Admin: 10/08/18 23:43 Dose: 1 applic - Labs Labs: 10/09/18 07:00 10/09/18 07:00 - Constitutional Appears: Non-toxic, No Acute Distress - Head Exam Head Exam: ATRAUMATIC, NORMOCEPHALIC - Eye Exam Eye Exam: EOMI, PERRL. absent: Conjunctival injection, Nystagmus, Scleral icterus Pupil Exam: NORMAL ACCOMODATION, PERRL. absent: Irregular, Miosis, Mydriatic - ENT Exam ENT Exam: Mucous Membranes Moist - Neck Exam Neck Exam: Full ROM - Respiratory Exam Respiratory Exam: Clear to Ausculation Bilateral, NORMAL BREATHING PATTERN. absent: Accessory Muscle Use, Respiratory Distress, Stridor - Cardiovascular Exam Cardiovascular Exam: RRR, +S1, +S2. absent: Murmur - GI/Abdominal Exam GI & Abdominal Exam: Soft, Normal Bowel Sounds. absent: Distended, Guarding, Rigid, Tenderness, Mass, Organomegaly - Extremities Exam Extremities Exam: Normal Inspection. absent: Calf Tenderness, Pedal Edema - Back Exam Back Exam: NORMAL INSPECTION - Neurological Exam Neurological Exam: Alert, Awake, Oriented x3 - Psychiatric Exam Psychiatric exam: Depressed - Skin Skin Exam: Dry, Normal Color, Warm Assessment and Plan - Assessment and Plan (Free Text) Assessment: This is a 67 year old female with PMH questionable Graves disease, benzodiazepine abuse, prior overdose, is here for Valium overdose s/p respiratory failure, found to have rising LFTs: 1. Abnormal LFTs 2/2 likely rhabdomyolysis vs tylenol toxicity, ruled out hepatitis 2. History of anxiety 3. Hx of alcohol abuse - Acute hepatitis panel negative - Abdominal US showed diffuse increased echogenicity in liver, likely hepatic steatosis. No cholelithiasis or biliary dilatation - LFTs trending down. AST 212 (from 348), ALT 111 (136). - CPK trending down, continue with IVF - c/w psychiatric care as per Dr Person. - will continue to monitor. Discussed case with Dr Pope. <Davy Pope V - Last Filed: 10/09/18 21:02> Objective - Vital Signs/Intake and Output Vital Signs (last 24 hours): Temp Pulse Resp BP Pulse Ox 99 F 78 20 157/62 H 95 10/09/18 14:00 10/09/18 14:00 10/09/18 14:00 10/09/18 14:00 10/09/18 14:00 Intake and Output: 10/09/18 10/10/18 18:59 06:59 Intake Total 1800 Balance 1800 - Medications Medications: Current Medications Acetaminophen/Butalbital/Caffeine (Fioricet) 1 tab PO Q4H PRN PRN Reason: Headache Last Admin: 10/09/18 08:28 Dose: 1 tab Clonazepam (Klonopin) 0.5 mg PO BID PRN; Protocol PRN Reason: Anxiety Last Admin: 10/08/18 23:08 Dose: 0.5 mg Sodium Chloride (Sodium Chloride 0.9%) 1,000 mls @ 100 mls/hr IV .Q10H [facility] Ibuprofen (Motrin Tab) 600 mg PO Q6H PRN PRN Reason: pain Last Admin: 10/07/18 04:44 Dose: 600 mg Magnesium Oxide (Mag-Ox) 400 mg PO BID LI Last Admin: 10/09/18 18:06 Dose: 400 mg Silver Sulfadiazine (Silvadene 1% 25 Gm) 0 gm TP BID LI Last Admin: 10/09/18 18:06 Dose: 25 gm Tobramycin/Dexamethasone (Tobradex Opht Susp) 1 ml OU TID LI Last Admin: 10/09/18 18:06 Dose: 1 applic - Labs Labs: 10/09/18 07:00 10/09/18 07:00 Attending/Attestation - Attestation I have personally seen and examined this patient.: Yes I have fully participated in the care of the patient.: Yes I have reviewed all pertinent clinical information, including history, physical exam and plan: Yes Notes (Text): This is an addendum to the GI progress report dictated by the medical lab specialist the patient was seen and evaluated along with the resident here earlier today. Patient comfortable tolerating the diet.The transaminases elevation is probably secondary to the rhabdomyolysis. Hepatitis profile negative sonogram was reviewed Discussed with the Dr. Nunez earlier 10/09/18 21:00
[2018-10-09 09:35] LABS: CK-MB 2.2 ng/mL (0.0-3.6)
[2018-10-09] MEDS: Silver Sulfadiazine 1% Cream (25 gm) TP SCH ×2 (11:27→18:06)
[2018-10-09] MEDS ORDERED: Potassium Chloride 20 mEq ER Tab PO ONE (12:01)
--- NOTE | 2018-10-09 15:13 | PN ---
DATE: 10/09/2018 SUBJECTIVE: The patient is status post overdose on Valium. The patient was in ICU intubated, status post extubated, most likely the patient had intentional overdose on Valium because the patient's family expressed their highest concern about patient's safety. The patient was downgraded to 5th floor over the weekend. As per report, the patient's labs are still far from by being ideal. AST and ALT are elevated, lactate dehydrogenase and total creatine kinase is also elevated. The patient is not medically cleared so far. The patient was seen today. The patient presented to be more alert, minimizing all of her symptoms. The patient denied that she wanted to kill herself, which is not true. When the patient was in ICU, the patient's daughter approached this investment underwriter expressing her highest concern about patient's safety, past month, it was especially very difficult for the patient because it was anniversary of her son who completed suicides few years back. The patient also has history of suicidal attempts. Please see previous notes for more detailed information. The patient was seen today. The patient is minimizing all of her symptoms. The patient denied that she wanted to end up her life. The patient reported that she took pills in order to calm herself down and she wanted to sleep. when was asked more details patient became defensive. The patient refused to give consent for collateral information from the family. This investment underwriter offered the patient admission, but the patient adamantly refused to sign consent form for treatment. The patient is aware of the plan to be screened. OBJECTIVE: VITAL SIGNS: Reviewed. Temperature 98.8, blood pressure 145/84, respiration 95. MEDICATIONS: Reviewed. Fioricet, Klonopin 0.5 mg twice a day as needed, Motrin, Silvadene, sodium chloride and tobramycin. LABORATORY DATA: Reviewed. Most recent was from today. Chemistry also reviewed. Liver function test is elevated. Total creatine kinase as well as lactate dehydrogenase are elevated, potassium level is low. MENTAL STATUS EXAMINATION: The patient presented to be alert, mildly irritable,tense contact. Speech was underproductive. At times, the patient had difficult to stay focused and concentrate. Mood described, I am fine, I was depressed but I am fine now. Affect was constricted. Thought process circumstantial. Thought content, the patient denied visual, auditory, tactile hallucinations. Denied paranoid ideation. The patient denied thoughts of harming herself or others. Denied intent or plan, but like based on the history, the patient has history of suicidal attempt and this investment underwriter cannot exclude that the patient has tried to commit suicide prior to coming to the hospital. IMPRESSION As per history, major depressive disorder, generalized anxiety disorder, rule out posttraumatic stress disorder. PLAN: This investment underwriter will continue all of the medications right now, the patient is on one to one. The patient is not clear from the medical standpoint. This investment underwriter will suggest [facility] screening process if the patient is not willing to sign herself into the psychiatric inpatient unit. Plan was discussed with medical team, nurses as well as Dr. Nunez. Should you have any questions give me a call back. Thank you very much for letting me participate in care of your patient. Naya Oneal MD NINO
[2018-10-09] MEDS: Magnesium Oxide 400 mg Tab UD PO SCH (18:06)
--- NOTE | 2018-10-10 01:17 | PN ---
DATE: 10/09/2018 SUBJECTIVE: The patient is a 67-year-old, seems to be doing better. She is more communicative, however, she seems depressed. I had a long discussion with the psychiatrist. The patient needs serious help. She needs to be transferred to [facility], but at this point, the patient is not medically cleared. Her LFTs are still abnormal. PHYSICAL EXAMINATION: GENERAL: On examination today, she is awake and alert, able to communicate. VITAL SIGNS: She is afebrile. Pulse 78, respirations 20, blood pressure 157/62. LUNGS: Bilateral fair airflow. No rhonchi or crackles. HEART: S1, S2 audible. ABDOMEN: Soft, nontender. No rebound. No guarding. NEUROLOGIC: The patient is awake and alert, able to communicate. LABORATORY EXAM: WBC 5.1, hemoglobin 10.2, hematocrit 31.3, platelet of 132. Chemistries: Sodium 141, potassium 3.2, chloride 111, CO2 of 29, BUN 5, creatinine 0.6, blood sugar of 87. AST 212, ALT 111, magnesium is 1.6. Her LDH is 1898, CPK is 7352. ASSESSMENT: 1. Status post suicidal attempt. 2. Abnormal liver function tests. 3. Rhabdomyolysis. 4. Probably fatty liver. PLAN: We will cut down patient's IV fluid to 100 mL. Her ultrasound is unremarkable. We will supplement her potassium and magnesium has been started also. We will follow up her CMP now. Once patient's LFTs are improving, we will make plan for transfer to [facility]. Jamir Nunez MD
[2018-10-10 07:58] LABS: ALBUMIN 2.7 g/dL (3.0-4.8); ALT/SGPT 108 U/L (7-56); AST/SGOT 154 U/L (14-36); BLOOD UREA NITROGEN 4 mg/dL (7-21); GFR NON-AFRICAN AMERICAN > 60
[2018-10-10] MEDS: Sodium Chloride 0.9% 1,000 ML IV SCH ×2 (08:27→17:17)
--- NOTE | 2018-10-10 08:27 | CP.PCM.PN ---
<Yany Denson - Last Filed: 10/10/18 11:03> Subjective - Date & Time of Evaluation Date of Evaluation: 10/10/18 Time of Evaluation: 08:24 - Subjective Subjective: Yany Denson, PGY2, GI Progress Note for Dr Pope: Patient seen and examined at bedside. No acute events overnight. Denies abdominal pain, nausea, vomiting, jaundice, fevers, chills. Patient tolerating PO diet well. Objective - Vital Signs/Intake and Output Vital Signs (last 24 hours): Temp Pulse Resp BP Pulse Ox 98.9 F 81 20 113/79 95 10/09/18 23:24 10/09/18 23:24 10/09/18 23:24 10/09/18 23:24 10/09/18 23:24 - Medications Medications: Current Medications Acetaminophen/Butalbital/Caffeine (Fioricet) 1 tab PO Q4H PRN PRN Reason: Headache Last Admin: 10/09/18 08:28 Dose: 1 tab Clonazepam (Klonopin) 0.5 mg PO BID PRN; Protocol PRN Reason: Anxiety Last Admin: 10/08/18 23:08 Dose: 0.5 mg Sodium Chloride (Sodium Chloride 0.9%) 1,000 mls @ 100 mls/hr IV .Q10H [facility] Ibuprofen (Motrin Tab) 600 mg PO Q6H PRN PRN Reason: pain Last Admin: 10/07/18 04:44 Dose: 600 mg Magnesium Oxide (Mag-Ox) 400 mg PO BID [facility] Last Admin: 10/09/18 18:06 Dose: 400 mg Silver Sulfadiazine (Silvadene 1% 25 Gm) 0 gm TP BID [facility] Last Admin: 10/09/18 18:06 Dose: 25 gm Tobramycin/Dexamethasone (Tobradex Opht Susp) 1 ml OU TID [facility] Last Admin: 10/09/18 18:06 Dose: 1 applic - Labs Labs: 10/09/18 07:00 10/10/18 07:00 - Additional Findings Additional findings: - Constitutional Appears: Non-toxic, No Acute Distress - Head Exam Head Exam: ATRAUMATIC, NORMOCEPHALIC - Eye Exam Eye Exam: EOMI, PERRL. absent: Conjunctival injection, Nystagmus, Scleral icterus Pupil Exam: NORMAL ACCOMODATION, PERRL. absent: Irregular, Miosis, Mydriatic - ENT Exam ENT Exam: Mucous Membranes Moist - Neck Exam Neck Exam: Full ROM - Respiratory Exam Respiratory Exam: Clear to Ausculation Bilateral, NORMAL BREATHING PATTERN. absent: Accessory Muscle Use, Respiratory Distress, Stridor - Cardiovascular Exam Cardiovascular Exam: RRR, +S1, +S2. absent: Murmur - GI/Abdominal Exam GI & Abdominal Exam: Soft, Normal Bowel Sounds. absent: Distended, Guarding, Rigid, Tenderness, Mass, Organomegaly - Extremities Exam Extremities Exam: Normal Inspection. absent: Calf Tenderness, Pedal Edema - Back Exam Back Exam: NORMAL INSPECTION - Neurological Exam Neurological Exam: Alert, Awake, Oriented x3 - Psychiatric Exam Psychiatric exam: Depressed - Skin Skin Exam: Dry, Normal Color, Warm Assessment and Plan - Assessment and Plan (Free Text) Assessment: This is a 67 year old female with PMH questionable Graves disease, benzodiazepine abuse, prior overdose, is here for Valium overdose s/p respiratory failure, found to have rising LFTs: 1. Abnormal LFTs 2/2 likely rhabdomyolysis, ruled out hepatitism tylenol toxicity 2. History of anxiety 3. Hx of alcohol abuse - Acute hepatitis panel negative - Abdominal US showed diffuse increased echogenicity in liver, likely hepatic steatosis. No cholelithiasis or biliary dilatation - LFTs trending down. AST 154, ALT 108. - CPK trending down, continue with IVF - c/w psychiatric care as per Dr Person. - will continue to monitor. Discussed case with Dr Pope. <Davy Pope V - Last Filed: 10/10/18 18:48> Objective - Vital Signs/Intake and Output Vital Signs (last 24 hours): Temp Pulse Resp BP Pulse Ox 98.9 F 81 20 113/79 95 10/09/18 23:24 10/09/18 23:24 10/09/18 23:24 10/09/18 23:24 10/09/18 23:24 Intake and Output: 10/10/18 10/10/18 06:59 18:59 Intake Total 1300 Balance 1300 - Medications Medications: Current Medications Acetaminophen/Butalbital/Caffeine (Fioricet) 1 tab PO Q4H PRN PRN Reason: Headache Last Admin: 10/10/18 08:31 Dose: 1 tab Clonazepam (Klonopin) 0.5 mg PO BID PRN; Protocol PRN Reason: Anxiety Last Admin: 10/10/18 12:44 Dose: 0.5 mg Sodium Chloride (Sodium Chloride 0.9%) 1,000 mls @ 100 mls/hr IV .Q10H [facility] Last Admin: 10/10/18 17:17 Dose: Not Given Ibuprofen (Motrin Tab) 600 mg PO Q6H PRN PRN Reason: pain Last Admin: 10/07/18 04:44 Dose: 600 mg Magnesium Oxide (Mag-Ox) 400 mg PO BID [facility] Last Admin: 10/10/18 17:16 Dose: 400 mg Silver Sulfadiazine (Silvadene 1% 25 Gm) 0 gm TP BID [facility] Last Admin: 10/10/18 17:17 Dose: 25 gm Tobramycin/Dexamethasone (Tobradex Opht Susp) 1 ml OU TID [facility] Last Admin: 10/10/18 17:17 Dose: 1 applic - Labs Labs: 10/09/18 07:00 10/10/18 07:00 Attending/Attestation - Attestation I have personally seen and examined this patient.: Yes I have fully participated in the care of the patient.: Yes I have reviewed all pertinent clinical information, including history, physical exam and plan: Yes Notes (Text): This patient was seen and evaluated here earlier with the resident. This is an addendum to the GI progress report dictated by the medical records auditor. Patient is tolerating a diet. No complaints of abdominal pain. Transaminases shows downward trend. Elevated transaminases is probably secondary to rhabdomyolysis. I have discussed her case with Dr. Nunez earlier. The sonogram was reviewed. Hepatitis profile was negative. Thank you Dr. Nunez for allowing us to participate in the care of the patient 10/10/18 18:46
[2018-10-10] MEDS: Apap-Butalbital-Caffeine 325-50-40mg Tab PO PRN (08:31)
[2018-10-10 09:16] LABS: CK-MB 1.5 ng/mL (0.0-3.6)
[2018-10-10] MEDS: Magnesium Oxide 400 mg Tab UD PO SCH ×2 (11:07→17:16)
[2018-10-10] MEDS: Silver Sulfadiazine 1% Cream (25 gm) TP SCH ×2 (11:08→17:17)
[2018-10-10] MEDS: Tobramycin/Dexamethasone (Tobradex) Opth Sol (2.5 ml) OU SCH ×3 (11:08→17:17)
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
--- NOTE | 2018-10-10 23:46 | PN ---
DATE: 10/10/2018 SUBJECTIVE: The patient is a 67-year-old. Seen and examined. Anxious to go home. No nausea, vomiting. No diarrhea. PHYSICAL EXAMINATION: VITAL SIGNS: She is afebrile. Pulse 81, respirations 20, blood pressure 130/79. LUNGS: Bilateral fair airflow. No rhonchi or crackles. HEART: S1, S2 audible. ABDOMEN: Soft, nontender. No rebound. No guarding. NEUROLOGICAL: The patient is awake and alert, able to communicate. LABORATORY EXAM: WBC 5.1, hemoglobin 10.2, hematocrit 30, platelets 132. Chemistries; sodium 140, potassium 3.6, chloride 109, CO2 of 30, BUN 4, creatinine of 0.5, blood sugar of 82. Benzodiazepine positive. Alcohol was 48. ASSESSMENT: 1. Status post rhabdomyolysis. 2. Status post Valium overdose. 3. Abnormal liver function tests. 4. History of depression. PLAN: The plan is we will continue the patient on IV fluids. We will trend her CMP and CPK in the morning. If she continues to trend down, she will be medically cleared to be transferred to [facility]. Jamir Nunez MD
[2018-10-11] MEDS: Sodium Chloride 0.9% 1,000 ML IV SCH (07:08)
[2018-10-11 08:16] LABS: ALB/GLOB RATIO 1.1 (1.1-1.8); ALBUMIN 2.8 g/dL (3.0-4.8); ALT/SGPT 96 U/L (7-56); AST/SGOT 112 U/L (14-36); BLOOD UREA NITROGEN 5 mg/dL (7-21); CALCIUM 8.1 mg/dL (8.4-10.5); GFR NON-AFRICAN AMERICAN > 60
[2018-10-11 09:08] LABS: CK-MB 1.2 ng/mL (0.0-3.6)
[2018-10-11] MEDS: Tobramycin/Dexamethasone (Tobradex) Opth Sol (2.5 ml) OU SCH ×3 (09:24→17:42)
[2018-10-11] MEDS: Silver Sulfadiazine 1% Cream (25 gm) TP SCH ×2 (09:24→17:41)
[2018-10-11] MEDS: Magnesium Oxide 400 mg Tab UD PO SCH ×2 (09:24→17:41)
--- NOTE | 2018-10-11 09:30 | CP.PCM.PN ---
<Yany Denson - Last Filed: 10/11/18 17:58> Subjective - Date & Time of Evaluation Date of Evaluation: 10/11/18 Time of Evaluation: 09:30 - Subjective Subjective: Yany Denson, PGY2, GI Progress Note for Dr Pope: Patient seen and examined at bedside. No acute events overnight. Denies abdominal pain, nausea, vomiting, jaundice, fevers, chills. Patient tolerating PO diet well. Objective - Vital Signs/Intake and Output Vital Signs (last 24 hours): Temp Pulse Resp BP Pulse Ox 98.5 F 82 20 150/74 96 10/11/18 06:00 10/11/18 06:00 10/11/18 06:00 10/11/18 06:00 10/11/18 06:00 - Medications Medications: Current Medications Acetaminophen/Butalbital/Caffeine (Fioricet) 1 tab PO Q4H PRN PRN Reason: Headache Last Admin: 10/10/18 08:31 Dose: 1 tab Clonazepam (Klonopin) 0.5 mg PO BID PRN; Protocol PRN Reason: Anxiety Last Admin: 10/10/18 12:44 Dose: 0.5 mg Sodium Chloride (Sodium Chloride 0.9%) 1,000 mls @ 100 mls/hr IV .Q10H [facility] Last Admin: 10/11/18 07:08 Dose: 100 mls/hr Ibuprofen (Motrin Tab) 600 mg PO Q6H PRN PRN Reason: pain Last Admin: 10/11/18 05:48 Dose: 600 mg Magnesium Oxide (Mag-Ox) 400 mg PO BID [facility] Last Admin: 10/11/18 09:24 Dose: 400 mg Silver Sulfadiazine (Silvadene 1% 25 Gm) 0 gm TP BID [facility] Last Admin: 10/11/18 09:24 Dose: 1 gm Tobramycin/Dexamethasone (Tobradex Opht Susp) 1 ml OU TID [facility] Last Admin: 10/11/18 09:24 Dose: 1 applic - Labs Labs: 10/09/18 07:00 10/11/18 06:45 - Additional Findings Additional findings: - Constitutional Appears: Non-toxic, No Acute Distress - Head Exam Head Exam: ATRAUMATIC, NORMOCEPHALIC - Eye Exam Eye Exam: EOMI, PERRL. absent: Conjunctival injection, Nystagmus, Scleral icterus Pupil Exam: NORMAL ACCOMODATION, PERRL. absent: Irregular, Miosis, Mydriatic - ENT Exam ENT Exam: Mucous Membranes Moist - Neck Exam Neck Exam: Full ROM - Respiratory Exam Respiratory Exam: Clear to Ausculation Bilateral, NORMAL BREATHING PATTERN. absent: Accessory Muscle Use, Respiratory Distress, Stridor - Cardiovascular Exam Cardiovascular Exam: RRR, +S1, +S2. absent: Murmur - GI/Abdominal Exam GI & Abdominal Exam: Soft, Normal Bowel Sounds. absent: Distended, Guarding, Rigid, Tenderness, Mass, Organomegaly - Extremities Exam Extremities Exam: Normal Inspection. absent: Calf Tenderness, Pedal Edema - Back Exam Back Exam: NORMAL INSPECTION - Neurological Exam Neurological Exam: Alert, Awake, Oriented x3 - Psychiatric Exam Psychiatric exam: Depressed - Skin Skin Exam: Dry, Normal Color, Warm Assessment and Plan - Assessment and Plan (Free Text) Assessment: This is a 67 year old female with PMH questionable Graves disease, benzodiazepine abuse, prior overdose, is here for Valium overdose s/p respiratory failure, found to have rising LFTs: 1. Abnormal LFTs 2/2 likely rhabdomyolysis, ruled out hepatitis, tylenol toxicity 2. History of anxiety 3. Hx of alcohol abuse - Acute hepatitis panel negative - Abdominal US showed diffuse increased echogenicity in liver, likely hepatic steatosis. No cholelithiasis or biliary dilatation - LFTs trending down. CPK 2396 today. - c/w psychiatric care as per Dr Person. Discussed case with Dr Pope. <Davy Pope V - Last Filed: 10/11/18 23:42> Objective - Vital Signs/Intake and Output Vital Signs (last 24 hours): Temp Pulse Resp BP Pulse Ox 98 F 79 20 154/79 H 97 10/11/18 22:00 10/11/18 22:00 10/11/18 22:00 10/11/18 22:00 10/11/18 22:00 - Medications Medications: Current Medications Acetaminophen/Butalbital/Caffeine (Fioricet) 1 tab PO Q4H PRN PRN Reason: Headache Last Admin: 10/11/18 15:16 Dose: 1 tab Clonazepam (Klonopin) 0.5 mg PO BID PRN; Protocol PRN Reason: Anxiety Last Admin: 10/11/18 20:34 Dose: 0.5 mg Sodium Chloride (Sodium Chloride 0.9%) 1,000 mls @ 100 mls/hr IV .Q10H [facility] Last Admin: 10/11/18 07:08 Dose: 100 mls/hr Ibuprofen (Motrin Tab) 600 mg PO Q6H PRN PRN Reason: pain Last Admin: 10/11/18 05:48 Dose: 600 mg Magnesium Oxide (Mag-Ox) 400 mg PO BID [facility] Last Admin: 10/11/18 17:41 Dose: 400 mg Silver Sulfadiazine (Silvadene 1% 25 Gm) 0 gm TP BID [facility] Last Admin: 10/11/18 17:41 Dose: 1 gm Tobramycin/Dexamethasone (Tobradex Opht Susp) 1 ml OU TID [facility] Last Admin: 10/11/18 17:42 Dose: 1 applic - Labs Labs: 10/09/18 07:00 10/11/18 06:45 Attending/Attestation - Attestation I have personally seen and examined this patient.: Yes I have fully participated in the care of the patient.: Yes I have reviewed all pertinent clinical information, including history, physical exam and plan: Yes Notes (Text): The patient was is an addendum to the GI progress report dictated by the resident. This is an addendum to the GI progress report dictated by the residen t. Patient's transaminases shows downward trend. Rhabdomyolysis. Is the probable likely etiology for the elevated transaminases Follow-up LFT Patient is awaiting for transfer to [facility], psychiatry unit 10/11/18 23:26
[2018-10-11] MEDS ORDERED: Potassium Chloride 20 mEq ER Tab PO ONE (10:41)
[2018-10-11 11:26] LABS: PH,URINE 5.5 (4.7-8.0); URINE APPEARANCE CLEAR (CLEAR); URINE BILIRUBIN NEGATIVE (NEGATIVE); URINE BLOOD NEGATIVE (NEGATIVE); URINE COLOR YELLOW (YELLOW); URINE GLUCOSE (UA) NEGATIVE (NEGATIVE); URINE LEUKOCYTE ESTERASE NEGATIVE Leu/uL (NEGATIVE); URINE PROTEIN NEGATIVE mg/dL (<30 mg/dL); URINE UROBILINOGEN 0.2 E.U./dL (<1 E.U./dL)
[2018-10-11] MEDS: Apap-Butalbital-Caffeine 325-50-40mg Tab PO PRN (15:16)
--- NOTE | 2018-10-11 20:25 | PN ---
DATE: 10/11/2018 SUBJECTIVE: In short, the patient is a 67-year-old female with a reported history of depression and anxiety. The patient had previous suicidal attempts and previous psychiatric admissions here in [place]. This admission, the patient is status post overdose on Valium and possible Tylenol, possible status post suicidal attempt. The patient was found accidentally unconscious by her boyfriend who happened to check up on the patient, accidentally found her on the floor in the kitchen unconscious. The patient was required ICU admission, intubated and extubated successfully. The patient was downgraded to medical site. This publications writer was involved into the patient care for evaluation of status post suicidal attempt because the patient has history of mental illness. While the patient was in ICU, the patient's daughter, Cristine approached this publications writer and expressed her highest concerns about the patient's safety in case of collateral information needs to be obtained, phone number is [phone]. As per the patient's daughter, the patient was not doing well and this time of the year is specifically hard for the patient because the patient's son committed suicide in 1997 and the patient's birthday is coming on October. The patient tried to kill herself in 2012 by cutting her wrist and carbon monoxide poisoning and bed bound. As per Dr. Perez's notes "motor running car and blood was all over the floor and lacerations of the arms and empty bottle of Xanax and Fioricet." The patient was admitted to ICU back then and the patient wanted to leave back then and was agitated. This publications writer had an impression that the patient is capable of trying to commit suicide this time as well. Going back to the patient's current presentation, the patient presented to be irritable, entitled. The patient knows better. The patient is convinced that she do not need to be in the hospital. The patient also does not gave permission to this publications writer to talk to the family with no explanation. The patient seems to be severely depressed with the impulses are unpredictable. OBJECTIVE: VITAL SIGNS: Reviewed. MENTAL STATUS EXAMINATION: The patient presented to be irritable and annoyed, intense eye contact and circumstantial and tangential and overinclusive thought process. Mood described as "all I need to have this is cognitive behavioral therapy, I am not crazy." The patient's thought process is circumstantial and tangential. Thought content, the patient denied visual, auditory, or tactile hallucinations. Denied paranoid ideation. Denied thoughts of harming herself or others, but this publications writer is doubt because the patient is very intelligent, has history of previous suicidal attempts. This publications writer cannot exclude that the patient tried to commit suicide prior to coming to the hospital. MEDICATIONS: Reviewed. LABORATORY DATA: Reviewed. IMPRESSION: As per history, major depressive disorder, generalized anxiety disorder, rule out adjustment disorder. PLAN: This publications writer has highest concerns about the patient's safety. The patient's son committed suicide at this period of the year in 1997. The patient's son birthday, anniversary is coming in October. The patient also does not gave permission to this publications writer to talk to the family. The patient's secretive, guarded and not providing information about her circumstances of this admission. This publications writer will initiate [facility] screening. Collaterals needs to be obtained from the patient's daughter, Cristine, . This publications writer would strongly recommend psychiatric admission, which was offered to the patient, but the patient declined. This publications writer had no other choice other than to call [facility] for involuntary commitment screening. Thank you very much. Naya Oneal MD NINO
--- NOTE | 2018-10-12 01:25 | DS ---
HISTORY OF PRESENT ILLNESS: The patient is a 67-year-old who was admitted after she was found to be minimally responsive at home with a note on the fridge that with suicidal intent. According to boyfriend when he went to visit her, she was slumped over in her kitchen floor. He called ambulance, she was brought to emergency room. She was intubated for airway protection. She was successfully extubated. Psychiatrist was called. The patient remain under observation on one-to-one. She was found to have acute rhabdomyolysis and secondary to that she has abnormal LFT. She has been on IV fluid. The patient was evaluated by psychiatrist and was advised to be admitted to voluntary unit where she was refused, so arrangement is being made to transfer her to [facility] for involuntary admission. PHYSICAL EXAMINATION: GENERAL: Today; she is awake, alert, and able to communicate. VITAL SIGNS: She is afebrile, pulse 82, respirations 20, and blood pressure 150/74. LUNGS: Bilateral fair airflow. No rhonchi or crackle. HEART: S1 and S2 audible. ABDOMEN: Soft and nontender. No rebound. No guarding. NEUROLOGIC: The patient is awake, alert, and able to communicate. LABORATORY DATA: Sodium 141, potassium 3.4, chloride 107, CO2 of 31, BUN 5, creatinine 0.6, and blood sugar 87. AST is 112, ALT is 96, and CPK 2396. Urinalysis is unremarkable. ASSESSMENT: 1. Status post valium overdose. 2. Status post respiratory failure that she has completely improved. 3. Rhabdomyolysis improving. 4. Abnormal liver function test secondary to rhabdomyolysis improving also. PLAN: The patient is going to be transferred to voluntary unit in [facility]. She is advised to follow up in my office, follow with psychiatrist and psychologist as outpatient. Jamir Nunez MD
[2018-10-12] MEDS: Sodium Chloride 0.9% 1,000 ML IV SCH ×2 (09:23→17:45)
[2018-10-12] MEDS: Tobramycin/Dexamethasone (Tobradex) Opth Sol (2.5 ml) OU SCH ×3 (09:30→17:48)
[2018-10-12] MEDS: Apap-Butalbital-Caffeine 325-50-40mg Tab PO PRN ×2 (09:30→20:10)
[2018-10-12] MEDS: Magnesium Oxide 400 mg Tab UD PO SCH ×2 (09:30→17:47)
[2018-10-12] MEDS: Silver Sulfadiazine 1% Cream (25 gm) TP SCH ×2 (09:31→17:48)
--- NOTE | 2018-10-12 10:33 | CP.PCM.PN ---
<Yany Denson - Last Filed: 10/12/18 10:33> Subjective - Date & Time of Evaluation Date of Evaluation: 10/12/18 Time of Evaluation: 10:33 - Subjective Subjective: Yany Denson, PGY2, GI Progress Note for Dr Pope: Patient seen and examined at bedside. No acute events overnight. Denies abdominal pain, nausea, vomiting, jaundice, fevers, chills. Patient tolerating PO diet well. Patient medically cleared, accepted by [facility] psych [facility]. Awaiting transfer. Objective - Vital Signs/Intake and Output Vital Signs (last 24 hours): Temp Pulse Resp BP Pulse Ox 98.4 F 80 20 144/76 97 10/12/18 10:19 10/12/18 10:19 10/12/18 10:19 10/12/18 10:19 10/12/18 10:19 - Medications Medications: Current Medications Acetaminophen/Butalbital/Caffeine (Fioricet) 1 tab PO Q4H PRN PRN Reason: Headache Last Admin: 10/12/18 09:30 Dose: 1 tab Clonazepam (Klonopin) 0.5 mg PO BID PRN; Protocol PRN Reason: Anxiety Last Admin: 10/12/18 01:57 Dose: 0.5 mg Sodium Chloride (Sodium Chloride 0.9%) 1,000 mls @ 100 mls/hr IV .Q10H [facility] Last Admin: 10/12/18 09:23 Dose: Not Given Ibuprofen (Motrin Tab) 600 mg PO Q6H PRN PRN Reason: pain Last Admin: 10/11/18 05:48 Dose: 600 mg Magnesium Oxide (Mag-Ox) 400 mg PO BID LI Last Admin: 10/12/18 09:30 Dose: 400 mg Silver Sulfadiazine (Silvadene 1% 25 Gm) 0 gm TP BID [facility] Last Admin: 10/12/18 09:31 Dose: 25 gm Tobramycin/Dexamethasone (Tobradex Opht Susp) 1 ml OU TID [facility] Last Admin: 10/12/18 09:30 Dose: 1 applic - Labs Labs: 10/09/18 07:00 10/11/18 06:45 - Additional Findings Additional findings: - Constitutional Appears: Non-toxic, No Acute Distress - Head Exam Head Exam: ATRAUMATIC, NORMOCEPHALIC - Eye Exam Eye Exam: EOMI, PERRL. absent: Conjunctival injection, Nystagmus, Scleral icterus Pupil Exam: NORMAL ACCOMODATION, PERRL. absent: Irregular, Miosis, Mydriatic - ENT Exam ENT Exam: Mucous Membranes Moist - Neck Exam Neck Exam: Full ROM - Respiratory Exam Respiratory Exam: Clear to Ausculation Bilateral, NORMAL BREATHING PATTERN. absent: Accessory Muscle Use, Respiratory Distress, Stridor - Cardiovascular Exam Cardiovascular Exam: RRR, +S1, +S2. absent: Murmur - GI/Abdominal Exam GI & Abdominal Exam: Soft, Normal Bowel Sounds. absent: Distended, Guarding, Rigid, Tenderness, Mass, Organomegaly - Extremities Exam Extremities Exam: Normal Inspection. absent: Calf Tenderness, Pedal Edema - Back Exam Back Exam: NORMAL INSPECTION - Neurological Exam Neurological Exam: Alert, Awake, Oriented x3 - Psychiatric Exam Psychiatric exam: Depressed - Skin Skin Exam: Dry, Normal Color, Warm Assessment and Plan - Assessment and Plan (Free Text) Assessment: This is a 67 year old female with PMH questionable Graves disease, benzodiazepine abuse, prior overdose, is here for Valium overdose s/p respiratory failure, found to have rising LFTs: 1. Abnormal LFTs 2/2 likely rhabdomyolysis, ruled out hepatitis, tylenol toxicity 2. History of anxiety 3. Hx of alcohol abuse - Acute hepatitis panel negative - Abdominal US showed diffuse increased echogenicity in liver, likely hepatic steatosis. No cholelithiasis or biliary dilatation - LFTs trending down. CPK 2396 yesterday. - c/w psychiatric care as per Dr Person. - cleared from GI standpoint Discussed case with Dr Pope. <Davy Pope V - Last Filed: 10/12/18 23:05> Objective - Vital Signs/Intake and Output Vital Signs (last 24 hours): Temp Pulse Resp BP Pulse Ox 98.8 F 86 18 117/79 96 10/12/18 22:33 10/12/18 22:33 10/12/18 22:33 10/12/18 22:33 10/12/18 22:33 - Medications Medications: Current Medications Acetaminophen/Butalbital/Caffeine (Fioricet) 1 tab PO Q4H PRN PRN Reason: Headache Last Admin: 10/12/18 20:10 Dose: 1 tab Clonazepam (Klonopin) 0.5 mg PO BID PRN; Protocol PRN Reason: Anxiety Last Admin: 10/12/18 01:57 Dose: 0.5 mg Sodium Chloride (Sodium Chloride 0.9%) 1,000 mls @ 100 mls/hr IV .Q10H [facility] Last Admin: 10/12/18 17:45 Dose: Not Given Ibuprofen (Motrin Tab) 600 mg PO Q6H PRN PRN Reason: pain Last Admin: 10/11/18 05:48 Dose: 600 mg Magnesium Oxide (Mag-Ox) 400 mg PO BID [facility] Last Admin: 10/12/18 17:47 Dose: 400 mg Silver Sulfadiazine (Silvadene 1% 25 Gm) 0 gm TP BID [facility] Last Admin: 10/12/18 17:48 Dose: 25 gm Tobramycin/Dexamethasone (Tobradex Opht Susp) 1 ml OU TID [facility] Last Admin: 10/12/18 17:48 Dose: 1 applic - Labs Labs: 10/09/18 07:00 10/12/18 11:50 Attending/Attestation - Attestation I have personally seen and examined this patient.: Yes I have fully participated in the care of the patient.: Yes I have reviewed all pertinent clinical information, including history, physical exam and plan: Yes Notes (Text): This patient seen and evaluated here earlier along with the resident. This is an addendum to the GI progress report dictated by the resident patient is tolerating diet no complaints of any abdominal pain transaminases shows downward trend CPKs do shows downward trend. Patient is cleared GI perspective for transfer to [facility] psych floor 10/12/18 23:04
--- NOTE | 2018-10-12 11:02 | CP.PCM.PCO ---
Physician Communication Note - Physician Communication Note Physician Communication Note: awaiting bed at [facility]
[2018-10-12 12:27] LABS: ALB/GLOB RATIO 1.2 (1.1-1.8); ALBUMIN 2.9 g/dL (3.0-4.8); ALT/SGPT 81 U/L (7-56); AST/SGOT 72 U/L (14-36); BLOOD UREA NITROGEN 7 mg/dL (7-21); CALCIUM 8.3 mg/dL (8.4-10.5); GFR NON-AFRICAN AMERICAN > 60
[2018-10-12 12:38] LABS: CK-MB 1.4 ng/mL (0.0-3.6)
--- NOTE | 2018-10-12 13:32 | CON ---
DATE: 10/12/2018 HISTORY OF PRESENT ILLNESS: The patient is a 67-year-old female with a history of depression and anxiety, prior suicide attempts and psychiatric admissions here in [place], who is currently hospitalized status post overdose on Valium, possibly Tylenol and currently awaiting transfer to [facility] for involuntary commitment. I followed up with the patient at bedside this morning, I am familiar with her case as I met with her multiple times over the weekend and I did explained to her the process of admission and requesting her cooperation for voluntary admission, however, she deferred each time. Apparently, at this time, she is oriented time on a voluntary basis, however screening has already been accomplished by [facility]. She still denies having any suicidal thoughts. She indicates that she is very upset about her commitment, feels overwhelmed with these new circumstances, she wants to go to "a better place" feels that the treatment at [facility] would be a waste of time for her. She is coherent. She is well oriented. Insight and judgment are considered to be fair and there have been no behavioral issues except for some lability noted on the unit. Relevant psychiatric medication include Klonopin 0.5 mg p.o. b.i.d. p.r.n. , but she has been receiving once a day last does at 01:57 a.m. this morning. Medications and laboratory data were reviewed. IMPRESSION: Major depressive disorder, severe; generalized anxiety disorder; status post overdose on Valium and possibly Tylenol, rule out suicide attempts. RECOMMENDATIONS: This provider as well as Dr. Oneal have reviewed disposition options with patient including voluntary admission to [facility]; however, she deferred this option during our discussions. She has been screened by [facility] have felt that the patient meets criteria for involuntary commitment. She is currently awaiting a bed at [facility]. I spoke with nursing and nursing staff will be following up with the patient the patient would like to sign in voluntarily or be transfer to another facility psychiatric care. This provider has no objection to the patient receiving inpatient psychiatric care in another facility whether [facility] or on the voluntary basis somewhere else, however, this change in disposition has to be discussed with [facility], this provider , but the legal complications associated with the patient who has already been screened for involuntary commitment. Regardless, the patient cannot be discharged from the medical floor and needs to go to psychiatric unit. Mary Merino MD
--- NOTE | 2018-10-12 14:09 | PN ---
DATE: 10/12/2018 SUBJECTIVE: The patient is 67-year-old, seen and examined. Seem to be frustrated and upset. She states she really wants to go home. Her bills and her mail is piling up and she is afraid that she is going to have trouble later on could not pay her bills. She was evaluated by [facility] and was accepted awaiting for bed. PHYSICAL EXAMINATION: GENERAL: She is awake, alert and able to communicate. VITAL SIGNS: She is afebrile. Pulse 80, respiration 20 and blood pressure 144/76. LUNGS: Bilateral fair airflow. No rhonchi or crackle. HEART: S1 and S2, audible. ABDOMEN: Soft and nontender. No rebound. No guarding. NEUROLOGIC: The patient is awake, alert and able to communicate. Ambulatory. LABORATORY DATA: Today's chem-7 is pending; however, her LFT's are trending down. ASSESSMENT: 1. Status post Valium overdose. 2. Status post rhabdomyolysis. 3. Abnormal liver function tests. 4. History of anxiety disorder. PLAN: We will continue the patient on current medications. Continue current IV fluids. Awaiting transfer to [facility] Jamir Nunez MD
--- NOTE | 2018-10-12 14:19 | CP.PCM.PCO ---
Physician Communication Note - Physician Communication Note Physician Communication Note: Pt accepted to [facility] screening, pt will benefit from involuntary committment
[2018-10-12 15:30] VITALS: O2SAT 96
[2018-10-12 22:33] VITALS: BP 117/79; PULSE 86; RESP 18; TEMP 98.8
--- NOTE | 2018-10-13 01:47 | CP.PCM.PN ---
Subjective - Date & Time of Evaluation Date of Evaluation: 10/13/18 Time of Evaluation: 01:45 - Subjective Subjective: Nurse Galo calls to get an order to discharge patient to [facility] psychiatric [facility] for involuntary commitment. Yesterday, screeners from [facility] and committed her to [facility] . Medical record was reviewed. As per psychiatrist note, patient is awaiting to go to [facility]. As per nurse, transportation will be here in 45-60 minutes and he needs a discharge order. Spoke to patient and informed her that she would be going to [facility]. She states that she is not suicidal. She showed unwillingness to go. This 67 year old woman was admitted with confusion, disorientation, allegedly had valium overdose. Has PMH of hyperthyroidism. Objective - Vital Signs/Intake and Output Vital Signs (last 24 hours): Temp Pulse Resp BP Pulse Ox 98.8 F 86 18 117/79 96 10/12/18 22:33 10/12/18 22:33 10/12/18 22:33 10/12/18 22:33 10/12/18 22:33 - Medications Medications: Current Medications Acetaminophen/Butalbital/Caffeine (Fioricet) 1 tab PO Q4H PRN PRN Reason: Headache Last Admin: 10/12/18 20:10 Dose: 1 tab Clonazepam (Klonopin) 0.5 mg PO BID PRN; Protocol PRN Reason: Anxiety Last Admin: 10/12/18 01:57 Dose: 0.5 mg Sodium Chloride (Sodium Chloride 0.9%) 1,000 mls @ 100 mls/hr IV .Q10H [facility] Last Admin: 10/12/18 17:45 Dose: Not Given Ibuprofen (Motrin Tab) 600 mg PO Q6H PRN PRN Reason: pain Last Admin: 10/11/18 05:48 Dose: 600 mg Magnesium Oxide (Mag-Ox) 400 mg PO BID LI Last Admin: 10/12/18 17:47 Dose: 400 mg Silver Sulfadiazine (Silvadene 1% 25 Gm) 0 gm TP BID LI Last Admin: 10/12/18 17:48 Dose: 25 gm Tobramycin/Dexamethasone (Tobradex Opht Susp) 1 ml OU TID [facility] Last Admin: 10/12/18 17:48 Dose: 1 applic - Labs Labs: 10/09/18 07:00 10/12/18 11:50 - Constitutional Appears: Well, No Acute Distress, Other (Ambulating, coming back and forth to nursing station from her room.) - Head Exam Head Exam: ATRAUMATIC, NORMAL INSPECTION, NORMOCEPHALIC - Eye Exam Eye Exam: Normal appearance - ENT Exam ENT Exam: Normal External Ear Exam - Neck Exam Neck Exam: Normal Inspection - Respiratory Exam Respiratory Exam: NORMAL BREATHING PATTERN - Cardiovascular Exam Cardiovascular Exam: absent: JVD - GI/Abdominal Exam GI & Abdominal Exam: absent: Distended - Rectal Exam Rectal Exam: Deferred - Exam Additional comments: Deferred. - Extremities Exam Extremities Exam: Normal Inspection - Back Exam Back Exam: NORMAL INSPECTION - Neurological Exam Neurological Exam: Alert, Awake - Psychiatric Exam Psychiatric exam: Normal Affect, Normal Mood - Skin Skin Exam: Normal Color Assessment and Plan - Assessment and Plan (Free Text) Assessment: Suicidal. Valium overdose. History of respiratory failure. History of hyperthyroidism. History of anxiety disorder. Plan: I entered the discharge order in the [employer] system. Message was sent to who is covering for .
== END 2018-10-13 02:50 | DRG 917 ==
LOC: ED 20:32 → ERH 22:35 → CCU 10-05 01:02 → ICU 10-05 14:48 → 2RNO 10-06 14:13 → 5RNO 10-08 11:28
PROVIDERS: ADMIT Internal Medicine Nephrology; ATTEND Internal Medicine
PROC: 0BH17EZ Insertion of Endotracheal Airway into Trachea, Via Natural or Artificial Opening (ICD-10-PCS; 2018-10-04)
PROC: 5A1935Z Respiratory Ventilation, Less than 24 Consecutive Hours (ICD-10-PCS; principal; 2018-10-05)
DX: T42.4X2A Poisoning by benzodiazepines, intentional self-harm, initial encounter (principal); J96.00 Acute respiratory failure, unspecified whether with hypoxia or hypercapnia; M62.82 Rhabdomyolysis; F32.2 Major depressive disorder, single episode, severe without psychotic features; F41.1 Generalized anxiety disorder; I10 Essential (primary) hypertension; E05.00 Thyrotoxicosis with diffuse goiter without thyrotoxic crisis or storm; E87.6 Hypokalemia; F13.10 Sedative, hypnotic or anxiolytic abuse, uncomplicated; F10.10 Alcohol abuse, uncomplicated; Y90.2 Blood alcohol level of 40-59 mg/100 ml; Z91.5 Personal history of self-harm